=== PATIENT | female | born 1960 | race Caucasian/White ===

== ENCOUNTER → 2017-08-21 10:13 | Outpatient (CLI) | payer BC, SELFPAY ==
--- NOTE | 2017-08-21 10:18 | BD_ITS ---
STUDY: DUAL ENERGY X-RAY ABSORPTIOMETRY / DXA REASON FOR EXAM: Female, 57 years old. Surgical menopause at age 48. Moderate exercise. TECHNIQUE: Bone Mineral Density (BMD) measurements of lumbar spine hips were obtained. COMPARISON: None. FINDINGS: Lumbar Spine (L1-L4): g/cm2 (0.853) / T-score (-2.9) / Z-score (-1.7) Findings are suggestive of osteoporosis with a high fracture risk. BD/Dexa Bone Density Study IMPRESSION: The patient is considered osteoporotic as outlined below according to World Mario Organization (WHO) criteria with a high fracture risk. Reference Information: The T-score is the number of standard deviations above or below the standard which is normal for young adults at their peak bone mineral density. The World Health Organization (WHO) interprets the T-scores as follows: Above -1 Normal bone density Between -1 and -2.5 Osteopenia Equal to / or below -2.5 Osteoporosis As a practical clinical guideline, osteopenia may be graded as follows: Mild -1 through -1.5 Moderate -1.6 through -2.0 Severe -2.1 through -2.4 The Z-score is the number of standard deviations above or below age-matched controls. A Z-score of less than -1.5 would be considered abnormal. References: 1. NIH Osteoporosis and Related Bone Diseases http://www.osteo.org 2. International Society for Clinical Densitometry http://www.iscd.org 3. National Osteoporosis Foundation http://www.nof.org Electronically Signed: Vincent Gamino DO at 11:22 EDT Tel [phone], Service support ,
--- NOTE | 2017-08-21 10:18 | BI_ITS ---
MAMMOGRAPHY - BILATERAL SCREENING REASON FOR EXAM: Female, 57 years old. Routine annual screening examination. PERTINENT HISTORY: Remote bilateral excisional breast biopsies. TECHNIQUE: Digital bilateral breast ubaldo (3D mammographic acquisition) in the CC and MLO projections. 2-D mediolateral oblique (MLO) and craniocaudad (CC) views of both breasts were obtained. CAD: Full Field Digital Mammography with Computer Added Detection was performed. COMPARISON: Comparison is made with prior study dated February 19, 2016 and October 14, 2014. FINDINGS: Breast Composition: The breasts are heterogeneously dense, which may obscure small masses. There now is evidence of a 1 cm x 1 cm spiculated nodule in the upper deep midportion of the left breast. A neoplastic process should be ruled out. Correlation with ultrasound is recommended for further evaluation. No other significant abnormalities are identified. BI/SCREENING MAMM (CAD), BILAT IMPRESSION: 1 cm x 1 cm spiculated nodular density in the left breast as described. Correlation with ultrasound is recommended. ASSESSMENT CATEGORY: BIRADS Category 0: Incomplete. Need additional imaging evaluation. A letter regarding these results will be sent to the patient by the facility within 30 days. Approximately 10% of breast cancers are not detected by mammography. A normal mammogram should not delay biopsy of a clinically suspicious abnormality. [id number] Electronically Signed: Tye Munoz MD at 15:26 EDT Tel [phone], Service support ,
== END ==
PROVIDERS: Family Provider Internal Medicine; PCP Internal Medicine; Visit Provider Internal Medicine
DX: Z12.31 Encounter for screening mammogram for malignant neoplasm of breast (principal); Z78.0 Asymptomatic menopausal state
CPT/HCPCS: 77063; 77067; 77080

== ENCOUNTER → 2017-08-27 15:24 | Outpatient (CLI) | payer BC, SELFPAY ==
--- NOTE | 2017-08-27 15:35 | US_ITS ---
STUDY: ULTRASOUND BREAST - LEFT REASON FOR EXAM: Female, 57 years old. Abnormal screening mammogram. TECHNIQUE: Axial and longitudinal images of the LEFT breast were performed with a high resolution ultrasound transducer. COMPARISON: Comparison is made with prior mammogram dated August 21, 2017. FINDINGS: LEFT Breast: There is a 7 mm x 8 mm x 7 mm irregular nodular hypoechoic density at the 12:00 position of the breast 4 cm from nipple. This corresponds to the mammographic findings. A biopsy is recommended. US/Breast Limited Unilateral IMPRESSION: 7 mm x 8 mm x 7 mm suspicious nodule at the 12:00 breast at 4 cm from nipple as described. A biopsy is recommended. ASSESSMENT CATEGORY: BIRADS Category 5: Highly Suggestive of Malignancy - Appropriate Action Should Be Taken. A letter regarding these results will be sent to the patient by the facility within 30 days. Electronically Signed: Tye Munoz MD at 8:10 EDT Tel [phone], Service support ,
== END ==
LOC: OPUS 15:29 → RAO 09-23 12:13
PROVIDERS: Family Provider Internal Medicine; PCP Internal Medicine; Visit Provider Internal Medicine
DX: N63.20 Unspecified lump in the left breast, unspecified quadrant (principal)
CPT/HCPCS: 76642

== ENCOUNTER → 2017-09-03 16:40 | Outpatient (CLI) | payer BC, SELFPAY ==
--- NOTE | 2017-09-03 | IMM_PTH ---
PATIENT: WILNER URBINA LOC: [facility] U#:[id number] AGE/SX: 65/F ROOM: RE09/03/[address]: Dr. Kumar Esparza MD : 1960 BED: DIS: SPEC #: [id number] RECD: 09/05/17 10:27 STATUS: FERNANDO REBari #: [id number] KELLY: 09/03/17 00:[address]: Kumar Esparza DEPT: IMMUNOHISTOCHEMISTRY RECD BY: Dru Rutledge Tissues: Left breast, NOS Procedures: CK5-6 (add) CK8 (add) E-CAD (add) HER2 TATYANA (add) KI-67 (add) P53 (add) NC (add) ER (initial) PHYSICIAN & INSTITUTION [place] [id number] SPECIMEN INFORMATION: Tissue Source: Left breast tissue, biopsy Clinical Info: Abnormal mammogram of left breast Specimen Number: [id number] CPT code: 98142, 88327p5, 45175h6 METHODOLOGY: Deparaffinized sections of prefer/formalin-fixed tissue or PAP/DQ stained slides are incubated with monoclonal/polyclonal antibodies/oligonucleotide probes. Localization is made via biotin free immunoperoxidase method. Appropriate controls are performed and reacted as expected. Results on target cell population are indicated in the following table: RESULTS: ANTIBODY / CLONE RESULT E-Cad (ECH-6) positive CK8 (20wbzaP48) positive CK5-6 (D5 & 1684) negative Ki-67 (30-9) positive, low to moderate P53 (DO-7) positive, low MORPHOMETRIC ANALYSIS : ER (clone 6F11) >95%, strong NC (clone 16/1E2) 6%, weak Her-2Neu (clone CB11) 0 The prognostic test for HER2 is performed on formalin-fixed paraffin embedded tissue. A 3+ (positive) staining pattern is defined as intense, homogeneous, complete, circumferential membranous staining in >10% of contiguous tumor cells. A similar weak (2+) staining pattern is interpreted as equivocal. CHRIS follow-up testing is recommended for all equivocal cases. Positivity/negativity for ER/NC is reported if > or < 1% of the tumor cells are immuno- reactive, respectively. The ASCO/CAP criteria is used for scoring. Reference: Journal of Clinical Oncology, 2013; 31:5670-1943 & 2010; 16:7522-1180. Duration of fixation: 34 Hrs; Sample Adequate: Yes. These assays have not been validated on decalcified tissues. Results should be interpreted with caution given the likelihood of false negativity on decalcified specimens. These tests were developed and their performance characteristics determined by [facility]. They may not have been cleared or approved by the U.S. Food and Drug Administration. The FDA has determined that such clearance or approval is not necessary. INTERPRETATION: Left breast tissue, biopsy: Invasive ductal carcinoma, nuclear grade 2 Positive for estrogen receptors (favorable prognostic indicator). Positive for progesterone receptors (unfavorable prognostic indicator). Negative for overexpression of EMO1cco. SJ:herman 09/05/17
--- NOTE | 2017-09-03 08:45 | BRBX_PTH ---
PATIENT: WILNER URBINA LOC: [facility] U#:[id number] AGE/SX: 65/F ROOM: RE09/03/[address]: Dr. Kumar Esparza MD : 1960 BED: DIS: SPEC #: [id number] RECD: 09/03/17 16:33 STATUS: FERNANDO KYLEIGH #: [id number] KELLY: 09/03/17 08:[address]: Kumar Esparza DEPT: SURGICAL PATHOLOGY RECD BY: Kelvin Holloway ENTERED: 09/04/17 07:06 SP TYPE: BREAST BX OTHR DR: Dr. Candi Patel DO Tissues: Left breast, NOS Procedures: Surgery Specimen Level IV HEADER OPERATION: Ultrasound guided left breast biopsy PRE-OP DIAGNOSIS: Abnormal mammogram of left breast TISSUE SUBMITTED: Left breast biopsy tissue ISCHEMIC TIME: 1 minute FIXATION TIME: 34 hours MICROSCOPIC DIAGNOSIS Left breast, ultrasound-guided core biopsy: Invasive ductal carcinoma, nuclear grade 2 (0.7 cm in greatest length). Focal ductal carcinoma in situ. See comment. LEOLA:jorge 09/05/17 COMMENT 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 Immunohistochemistry ([id number]) supports the above diagnosis. ER/GA/Odv2gow studies are being performed on sections of tumor and the results from this study will be reported separately ([id number]). MICROSCOPIC DESCRIPTION Slides are reviewed. GROSS DESCRIPTION The specimen consists of multiple elongated fragments of wayne-yellow fibroadipose tissue mixed with blood clot, measuring in aggregate 2.5 x 2 x 0.1 cm. The entire specimen is submitted in one cassette. LEOLA:jorge 09/04/17 TC:0 CPT: 02311
== END ==
PROVIDERS: Visit Provider Surgery
DX: R92.8 Other abnormal and inconclusive findings on diagnostic imaging of breast (principal)
CPT/HCPCS: 88305; 88341; 88342

== ENCOUNTER 2017-09-18 08:28 | Day surgery (SDC) | payer BC, SELFPAY ==
--- NOTE | 2017-09-18 | AXNB_PTH ---
PATIENT: WILNER URBINA LOC: [facility] [place] U#:[id number] AGE/SX: 57/F ROOM: RE09/18/[address]: Dr. Kumar Esparza MD : 1960 BED: DIS: 09/18/2017 SPEC #: [id number] RECD: 09/18/17 11:55 STATUS: FERNANDO RE #: [id number] KELLY: 09/18/17 00:[address]: Kumar Esparza DEPT: SURGICAL PATHOLOGY RECD BY: Casie Lang ENTERED: 09/18/17 12:48 SP TYPE: AX NODE BX OTHR DR: Dr. Candi Patel DO Tissues: A - Axillary lymph node, NOS B - Left breast, NOS Procedures: Frozen Section (charge) Surgery Specimen Level IV Surgery Specimen Level Comments: @ Specimen number changed from [id number] to [id number] @ on 09/18/17 at 1314 by RGOOD. HEADER OPERATION: Ultrasound-guided needle localization in OR; lumpectomy with sentinel lymph node biopsy and Neoprobe radiotracer, left breast PRE-OP DIAGNOSIS: Malignant neoplasm of upper inner quadrant left breast, ER positive TISSUE SUBMITTED: A ? Left axillary sentinel lymph node tissue to lab FS, B ? Left breast lumpectomy tissue to mammography, short stitch ? superior, long stitch - lateral FROZEN SECTION DIAGNOSIS A. Left axillary sentinel lymph node tissue, biopsy: One lymph node, negative for metastatic carcinoma. SJ:judy 09/18/17 MICROSCOPIC DIAGNOSIS A. Left axillary sentinel lymph node tissue, biopsy: One out of one lymph node, negative for carcinoma. B. Left breast, lumpectomy: Invasive ductal carcinoma. See cancer checklist below. AM:judy 09/24/17 COMMENT INVASIVE BREAST CANCER SUMMARY: Specimen: Partial breast Procedure: Excision with wire guidance Lymph node sampling: See specimen A Specimen integrity: Single intact specimen Specimen size: 7 x 5.5 x 2 cm Specimen laterality: Left breast Tumor size: 1 x 1 x 1 cm Tumor focality: Single focus of invasive carcinoma Macroscopic and Microscopic extent of tumor: Skin: Free of carcinoma Nipple: Not present Skeletal muscle: Not present Histologic type of invasive carcinoma: invasive ductal carcinoma Histologic Grade (Satya grade): Glandular/tubular differentiation score: 3 Nuclear pleomorphism score: 3 Mitotic count score: 2 Overall grade: Grade 3 (total score of 8) Margins: The margins are NOT involved by invasive carcinoma. Distance from closest margin is 5 mm from closest (posterior) margin Lymph-Vascular invasion: Not identified Dermal lymph-vascular invasion: Not identified Ductal carcinoma in situ (DCIS) - present Estimated size (extent) of DCIS: 1 x 1 x 1 mm Number of blocks with DCIS: 2 out of 10 Architectural patterns: Cribriform. Nuclear grade: 3 Necrosis: Present, focal Lobular carcinoma in situ (LCIS): Not present Lymph nodes: Number of sentinel lymph nodes examined - 1 Total number of lymph nodes examined (sentinel and nonsentinel) - 1 No evidence of macrometastases, micrometastases or isolated tumor cells. Immunohistochemistry ([id number]) performed on the lymph node. Microcalcifications - present in non-neoplastic tissue Treatment effect ? unknown Additional pathologic findings: Fibrocystic change Ancillary studies: Previously performed on same tumor ([id number] / [id number]). ER: >95%, strong AR: 6%, weak Her2 ajith: 0 (IHC) PATHOLOGIC STAGE: pT1b N0(sn) Mx The above summary is in compliance with [employer] (CAP) Cancer Protocols Checklist and [place] Joint Committee on Cancer (AJCC), Staging Manual, 8th Ed. Case has been reviewed in consultation with Dr. Krishnamurthy who concurs with the above diagnosis. IDC:SJ MICROSCOPIC DESCRIPTION Slides are reviewed. GROSS DESCRIPTION A - Received fresh for frozen section diagnosis labeled with the patient's name is a specimen designated left axillary sentinel lymph node tissue. The specimen consists of a piece of yellow adipose tissue containing a nodule consistent with lymph node measuring 2 x 1.5 x 0.5 cm. The specimen is bisected and submitted entirely for frozen section diagnosis in one cassette. / LEOLA:judy 09/18/17 B - Received fresh for intraoperative consultation labeled with the patient's name is a specimen designated left breast lumpectomy tissue. The specimen consists of a piece of fibroadipose tissue measuring 7 x 5.5 x 2 cm. A piece of skin is also noted anteriorly measuring 3 x 0.5 cm. The specimen is oriented as follows: short stitch ? superior, long stitch ? lateral. The specimen is inked as follows: anterior ? yellow, posterior ? black, superior ? blue, inferior ? green, medial ? red and lateral ? orange. Serial sections reveal a tumor mass measuring 1 x 1 x 1 cm and it is 0.5 cm away from the closest posterior margin. This information is conveyed to the surgeon intraoperatively. Sections of the rest of the specimen reveals wayne-yellow adipose cut surfaces mixed with wayne-white fibrous areas. Focal dense fibrous area is noted at the lateral margin measuring 1 cm in greatest dimension. Drug And Alcohol Counsellor sections are submitted in 10 cassettes as follows: 1 ? perpendicular medial and lateral margins, 2 ? perpendicular anterior margin, inferior margin and skin, 3-5 ? entire tumor with closest superior and posterior margin, 6-10 - career services representative sections from the other areas. About 90% of the specimen is submitted. Sections will be submitted after additional fixation. / LEOLA:judy 09/19/17 TC:0 CPT: 05393, 61113, 32057, 14924 ADDENDUM ADDENDUM ADDENDUM ADDENDUM ADDENDUM ADDENDUM ADDENDUM ADDENDUM 11/03/2017 09:26 ADDENDUM 11/03/2017 09:26 ADDENDUM 11/03/2017 09:26 ADDENDUM 11/03/2017 09:26 ADDENDUM 11/03/2017 09:26 An order for Oncotype testing was received from Dr. Lorenzo. This necessitated case review, block and slide selection by pathologist at [facility]. Breast Cancer Recurrence Score = 28 Results of the complete Oncotype testing ([facility] report) are viewable in EMR under: Reports - Pathology - Lab Pathology Report, Scanned.
--- NOTE | 2017-09-18 | IMM_PTH ---
PATIENT: WILNER URBINA LOC: [facility] [place] U#:[id number] AGE/SX: 57/F ROOM: RE09/18/[address]: Dr. Kumar Esparza MD : 1960 BED: DIS: 09/18/2017 SPEC #: [id number] RECD: 09/23/17 14:17 STATUS: FERNANDO REQ #: [id number] KELLY: 09/18/17 00:[address]: Kumar Esparza DEPT: IMMUNOHISTOCHEMISTRY RECD BY: Casie Lang ENTERED: 09/23/17 14:18 SP TYPE: IMMUNO OTHR DR: Dr. Candi Patel, DO Tissues: A - Axillary lymph node, NOS Procedures: Pankeratin (add) CK7 (initial) PHYSICIAN & INSTITUTION [place] [address] SPECIMEN INFORMATION: Tissue Source: A ? Left axillary sentinel lymph node tissue Clinical Info: Malignant neoplasm of upper inner quadrant, left breast, ER positive Specimen Number: [id number] CPT code: 26985, 49531 METHODOLOGY: Deparaffinized sections of prefer/formalin-fixed tissue or PAP/DQ stained slides are incubated with monoclonal/polyclonal antibodies/oligonucleotide probes. Localization is made via biotin free immunoperoxidase method. Appropriate controls are performed and reacted as expected. Results on target cell population are indicated in the following table: RESULTS: ANTIBODY / CLONE RESULT Block A CK7 (OV-TL12/30) negative AE1-3 (AE1/AE3/PCK26) negative These tests were developed and their performance characteristics determined by [facility]. They may not have been cleared or approved by the U.S. Food and Drug Administration. The FDA has determined that such clearance or approval is not necessary. INTERPRETATION: A. Left axillary sentinel lymph node tissue, biopsy: One out of one lymph node negative for carcinoma. AM:judy 09/24/17
[2017-09-18 08:44] VITALS: BP 136/84; PULSE 68; RESP 16; TEMP 36.7; O2SAT 100; BMI 25.8
--- NOTE | 2017-09-18 09:00 | NM_ITS ---
PROCEDURE: NUCLEAR MEDICINE Injection [place] Node - LEFT breast(s). REASON FOR EXAM: Female, 57 years old. Left breast concert. TECHNIQUE: [place] node localization using radionuclide methods of the LEFT breast(s) was performed following subcutaneous administration administration of 1.1 mCi of of sulfur colloid Tc-99m. FINDINGS: 1.1 mCi of technetium labeled sulfur colloid was injected in 4 equal aliquots at the biopsy site. NM/Lymph Node Injection Only IMPRESSION: Successful injection of 1.1 mCi of technetium labeled sulfur colloid at the biopsy site for sentinel node imaging. Electronically Signed: Tye Munoz MD at 10:16 EDT Tel [phone], Service support ,
[2017-09-18] MEDS: Cefazolin 2 GM in 0.9% Normal Saline 100 ML IV (11:02)
--- NOTE | 2017-09-18 12:14 | BI_ITS ---
SURGICAL BREAST SPECIMEN RADIOGRAPH CLINICAL: Document presence of mass in biopsy specimen. FINDINGS: Specimen shows presence of mass. Electronically Signed: Tye Munoz MD at 12:35 EDT Tel [phone], Service support , BI/Breast Biopsy Specimen
[2017-09-18] MEDS: Bupivacaine Mpf 0.5% 30 ML VIAL (12:20)
--- NOTE | 2017-09-18 12:38 | PCM.OPRPT ---
Problem List (1) Breast cancer of upper-inner quadrant of left female breast Status: Acute Qualifiers: Estrogen receptor status: positive Qualified Code(s): C50.212 - Malignant neoplasm of upper-inner quadrant of left female breast; Z17.0 - Estrogen receptor positive status [ER+] Report of Operation Date of Procedure: 09/18/17 Pre-Operative Diagnosis: Left breast cancer estrogen receptor positive Post-Operative Diagnosis: Same Surgery/Procedure Performed:: 1. Ultrasound guidance wire localization. 2. Injection blue dye. 3. Left partial mastectomy. 4. Left sentinel lymph node biopsy with neoprobe guidance Special Medications: Isosulfan blue dye Specimen's removed: 1. Left axillary sentinel lymph node. 2. Left partial mastectomy Description of Procedure: The patient was sent for nuclear tracer injection before surgery. She was brought to the operating room and general anesthesia was induced. Next an ultrasound was used to locate the breast mass and a Kopan's wire was placed into the mass. Next 5 mL of isosulfan blue were injected in the subareolar space in 4 quadrants. The breast was then massaged for 5 full minutes. Next the left breast was prepped and draped in usual sterile fashion. The left axillary hairline was located and a curvilinear incision was made in the skin and deepened to the axillary fascia. The axillary fascia was opened and using the neoprobe to guide dissection was completed until blue node was identified. This was dissected free using clips and hemostats until the lymph node was removed. A 10 second count was performed outside of the body and this was 234. This was sent for pathology. The neoprobe was placed back in the axilla and nothing appeared to have a count higher than 23. The axilla was further inspected there were no further blue lymph nodes and the axilla was palpated and there were no palpable lymph nodes. The axilla was packed with wet Ray-Anastacia and attention was paid to the left breast mass. The patient's prior lumpectomy incision was incised around and excised with the specimen. Once the incision was made the skin was elevated and flaps were created. Dissection was carried down to the pectoral fascia in all directions around the wire and the dissection was carried all the way the pectoral fascia including the fascia. The specimen along with the wire was removed and sent for mammogram and then pathology. The mammogram of the specimen revealed that the entire wire and clip with the mass were included. Pathology called the room and notified us that our sentinel lymph node was negative and that the mass had good margins of at least half a centimeter. Next the axilla was irrigated and suctioned dry and check for hemostasis and hemostasis was good. The axillary fascia was reapproximated with 3-0 Vicryl suture and the skin was approximated with interrupted 3-0 Vicryl sutures. The incision was then anesthetized with Marcaine and closed with a running 4-0 Monocryl suture. Dermabond was then applied. The breast cavity was irrigated and suctioned dry check for hemostasis and hemostasis was obtained with electrocautery. Some of the deep breast tissue was reapproximated with interrupted 3-0 Vicryl sutures. The incision was then anesthetized with Marcaine and closed with interrupted 3-0 Vicryl sutures, running 4-0 Monocryl, and Dermabond. Padded dressings and a surgical bra were applied and the patient was taken to PACU in stable condition. The patient tolerated the procedure well. - Admit VTE Documentation VTE Mechan Device Prophylaxis: SCD's
--- NOTE | 2017-09-18 12:49 | DCINST_ITS ---
Discharge Diet: No Restrictions Discharge Activity: May Not Drive - for 2-3 days or while taking narcotic pain meds. May shower in (days): 1 Lifting Restrictions: 10 pounds for 1 week. Call your doctor if your incision/area has: Continuous Slow Oozing, Sudden Increased Bleeding, Increased Pain/ Swelling, Increased Redness, Foul Smelling Discharge, Swelling at the incision site Call your doctor if you observe: Fever of 101 or Higher Suture Line Care: Avoid Pulling/Pushing, Avoid Pinching/Bending Allergies/Adverse Reactions: Allergies orange juice [[place] Juice] Adverse Reaction (Verified 09/16/17 13:13) Nausea/Vom/Diarrhea Medications to take at Discharge Amitriptyline HCl [Elavil] 12.5 mg PO QHS PRN 01/18/13 albuterol sulfate HFA 90 mcg/actuation aerosol inhaler 2 puff INHALATION Q6H PRN 09/03/17 lorazepam 0.5 mg tablet 0.5 mg PO Q8H PRN tab 09/03/17 nebivolol 5 mg tablet 5 mg PO QDAY 09/03/17 Oxycodone HCl/Acetaminophen [Percocet 5/325] 1 - 2 tab PO Q4H PRN PRN 7 Days # 40 tab 09/18/17 The following prescriptions were given: Oxycodone HCl/Acetaminophen [Percocet 5/325] 1 - 2 tab PO Q4H PRN PRN 7 Days # 40 tab PRN Reason: Pain Primary Care Physician: Candi Patel DO [Primary Care Provider] - Please Follow Up With: Kumar Esparza MD When: Please call to schedule 2 week follow up appointment. [phone]
[2017-09-18 12:50] VITALS: BP 115/70; BP 136/84; PULSE 81; RESP 16; TEMP 36.4; O2SAT 97
[2017-09-18 13:00] VITALS: BP 136/84; BP 141/72; PULSE 72; RESP 16; O2SAT 98
[2017-09-18 13:15] VITALS: BP 136/84; BP 144/85; PULSE 64; RESP 16; O2SAT 100
[2017-09-18 13:32] VITALS: BP 136/84; BP 137/79; PULSE 61; RESP 16; TEMP 36.4; O2SAT 99
[2017-09-18 14:50] VITALS: BP 136/84
== END 2017-09-18 14:50 | disposition home or self-care (01) ==
LOC: SDC 08:30 → AC 08:30
PROVIDERS: Family Provider Internal Medicine; PCP Internal Medicine; Visit Provider Surgery
PROC: (CPT 19301; principal; 2017-09-18 10:45)
DX: C50.212 Malignant neoplasm of upper-inner quadrant of left female breast (principal); Z17.0 Estrogen receptor positive status [ER+]; I34.1 Nonrheumatic mitral (valve) prolapse; I10 Essential (primary) hypertension; J45.909 Unspecified asthma, uncomplicated; F41.9 Anxiety disorder, unspecified; M19.90 Unspecified osteoarthritis, unspecified site; Z79.899 Other long term (current) drug therapy
CPT/HCPCS: 19285; 19301; 38500; 38792; 76098; 88305; 88309; 88331; 88341; 88342; A9541; J7120; J2405; Q9968

== ENCOUNTER → 2018-02-02 07:53 | Outpatient (CLI) | payer BC, SELFPAY ==
[2017-10-16 10:28] VITALS: BMI 26.2
--- NOTE | 2018-02-02 08:00 | NM_ITS ---
CLINICAL: 58-year-old female with reported history of carcinoma of the breast. WHOLE BODY 99m Tc MDP RADIONUCLIDE BONE SCINTIGRAPHY COMPARISON: None available FINDINGS: Following the intravenous administration of 25.0 mCi of 99m Tc MDP, whole body bone images reveal: 1. Increased radiopharmaceutical concentration is identified in the upper-mid cervical spine posteriorly on the left and right, fourth-fifth lumbar vertebra posteriorly on the right, bilateral wrist articulations, right-left ankles, the midfoot bilaterally, acromioclavicular compartment of the right shoulder. 2. The remaining skeletal structures are scintigraphically unremarkable with normal-appearing renal images and urinary bladder activity identified. Enhanced uptake is defined in the presumably asymptomatic bilateral knee arthroplasties most consistent with postsurgical change. An increase in tracer concentration is demonstrated in the bilateral mandible and maxilla most consistent with periostitis and/or periodontal disease. NM/Bone Scan Whole Body IMPRESSION: 1. The increase in radiopharmaceutical concentration identified in the cervical and lumbar spine, bilateral wrist and ankle articulations, right-left midfoot, the right shoulder is most consistent with degenerative arthritis. 2. There is no definitive typical scintigraphic evidence of diffuse axial skeletal metastatic disease on the current examination. Electronically Signed: Kelvin Oleary DO at 10:36 EST Tel , Service support ,
== END ==
PROVIDERS: Family Provider Internal Medicine; PCP Internal Medicine; Referring Provider Internal Medicine Medical Oncology; Visit Provider Internal Medicine Medical Oncology
DX: C50.212 Malignant neoplasm of upper-inner quadrant of left female breast (principal); R74.8 Abnormal levels of other serum enzymes
CPT/HCPCS: 78306

== ENCOUNTER → 2018-02-05 13:30 | Outpatient (CLI) | payer BC, SELFPAY ==
[2017-10-16 10:28] VITALS: BMI 26.2
[2018-02-05 14:33] LABS: Absolute Lymphocyte Count 1.25 X10^3/ul (0.83-4.51); Absolute Neutrophil Count 3.8 X10^3/uL (2.0-7.7); Basophil# 0.03 X10^3/uL; Basophil% 0.6 % (0-1); Eosinophil# 0.01 X10^3/uL; Eosinophils% 0.2 % (0-5); Hematocrit 39.5 % (37-47); Hemoglobin 13.1 g/dl (12.0-15.0); Lymphocyte # 1.25 X10^3/ul (4.0); Mean Corp Hgb Conc 33.2 g/gl (32-36); Mean Corpuscular Hgb 29.7 pg (27.0-32.0); Mean Corpuscular Volume 89.6 fL (81-99); Monocyte# 0.35 X10^3/uL; Monocyte% 6.4 % (0-10); Neutrophil % 69.8 % (47-70); Platelet Count 186 K/mm3 (150-450); RBC Distribution Width CV 13.8 % (11.6-14.6); RBC Distribution Width SD 45.4 fl (35.1-43.9); Red Blood Count 4.41 M/mm3 (4.2-5.4); White Blood Count 5.4 K/mm3 (4.4-11.0)
[2018-02-05 14:37] LABS: POSITIVE COUNT NO; POSITIVE DIFFERENTIAL NO; POSITIVE MORPHOLOGY NO
[2018-02-05 14:50] LABS: ALB/GLOB Ratio 1.2 RATIO (0.9-2.4); AST(SGOT) 21 U/L (15-37); Alanine Aminotransfer ALT/SGPT 28 U/L (13-56); Albumin, Serum 3.6 g/dL (3.2-5.0); Alkaline Phosphatase 120 U/L (45-117); BUN 17 mg/dL (7-18); BUN/Creat Ratio 29.7 RATIO (10-20); Calcium,Total 8.3 mg/dL (8.5-10.1); Chloride 109 mmol/L (98-107); Creatinine, Serum 0.57 mg/dL (0.55-1.02); EST Glomerular Filtration Rate 114 mL/min (>60); Est Glom Filt Rate - Afr Amer 138 mL/min (>60); Globulin 3.1 g/dL (2.2-4.2); Glucose 87 mg/dL (74-106); Protein, Total 6.7 g/dL (6.4-8.2); Sodium Level 141 mmol/L (136-145)
[2018-02-05 14:51] LABS: Anion Gap 5 (5-15)
--- OUTSIDE RECORDS SUMMARY | 2018-04-02 18:07 | XMS RPT_ITS ---
:1960 Author Organization OHIP Support Name Relationship Address Phone JOSE DAVID URBINA Unavailable [address] + [place] [address] ENTERPRISES Unavailable [address] + [place] [address] JOSE DAVID URBINA Unavailable [address] + [place] [address] ENTERPRIS[employer] Unavailable [address] + [place] [address] JOSE DAVID URBINA Unavailable [address] + [place] [address] ENTERPRISES Unavailable [address] + [place] [address] JOSE DAVID URBINA Unavailable [address] + [place] [address] ENTERPRISES Unavailable [address] + [place] [address] JOSE DAVID URBINA Unavailable [address] + [place] [address] + [place] [address] JOSE DAVID URBINA Unavailable [address] + [place] [address] + [place] [address] JOSE DAVID URBINA Unavailable [address] + [place] [address] + [place] [address] JOSE DAVID URBINA Unavailable [address] + [place] [address] Un[address] + [place] [address] URBINA, JOSE DAVID Unavailable [address] + [place] [address] + [place] [address] URBINA, JOSE DAVID Unavailable [address] + [place] [id number] + [place] [address] URBINA, JOSE DAVID Unavailable [address] + [place] [address] + [place] [address] URBINA, JOSE DAVID Unavailable [address] + [place] [address] Un[address] + [place] [address] URBINA, [place] Unavailable [address] + [place] [address] Un[address] + [place] [address] URBINA, JOSE DAVID Unavailable [address] + [place] [address] Un[address] + [place] [address] URBINA, JOSE DAVID Unavailable [address] + [place] [address] Un[address] + [place] [address] [facility] [address] + [place] [address] Un[address] + [place] [address] URBINA, JOSE DAVID Unavailable [address] + [place] [address] Un[address] + [place] [address] URBINA, JOSE DAVID Unavailable [address] + [place] [address] Un[address] + [place] [address] URBINA, JOSE DAVID Unavailable [address] + [place] [address] + [place] [address] URBINA, JOSE DAVID Unavailable [address] + [place] [address] Un[address] + [place] [address] URBINA, JOSE DAVID Unavailable [address] + [place] [address] Un[address] + [place] [address] URBINA JOSE DAVID Unavailable [address] + [place] [address] Un[address] + [place] [address] URBINA, JOSE DAVID Unavailable [address] + [place] [address] Un[address] + [place] [address] URBINA JOSE DAVID Unavailable [address] + [place] [address] Un[address] + [place] [address] URBINA, JOSE DAVID Unavailable [address] + [place] [address] Un[address] + [place] [address] URBINA, JOSE DAVID Unavailable [address] + [place] [address] Un[address] + [place] [address] CIARA BRANDYN Unavailable [address] + [place] [address] + [place] [address] Care Team Providers Name Role Phone TANIA GIBSON Attending Unavailable TANIA GIBSON Referring Unavailable TANIA GIBSON Attending Unavailable TANIA GIBSON Referring Unavailable Amanda, Candi Attending Unavailable Amanda, Candi Primary Care Unavailable Amanda, Candi Attending Unavailable Amanda, Candi Primary Care Unavailable Calabretta, Kumar Referring Unavailable Calabretta, Kumar Attending Unavailable Amanda, Candi Referring Unavailable Calabretta, Kumar Attending Unavailable Amanda, Candi Primary Care Unavailable Calabretta, Kumar Referring Unavailable Calabretta, Kumar Attending Unavailable Amanda, Candi Referring Unavailable Calabretta, Kumar Attending Unavailable Calabretta, Kumar Referring Unavailable Amanda, Candi Primary Care Unavailable Calabretta, Kumar Attending Unavailable Calabretta, Kumar Referring Unavailable Amanda, Candi Primary Care Unavailable Calabretta, Kumar Consulting Unavailable Calabretta, Kumar Attending Unavailable Amanda, Candi Referring Unavailable Amanda, Candi Primary Care Unavailable Calabretta, Kumar Referring Unavailable Amanda, Candi Primary Care Unavailable Roman Sargent Consulting Unavailable Roman Sargent Attending Unavailable Roman Sargent Attending Unavailable Calabretta, Kumar Referring Unavailable Amanda, Candi Primary Care Unavailable Steve Sargente Consulting Unavailable PraErlin holman Consulting Unavailable Roman Sargent Attending Unavailable Calabretta, Kumar Referring Unavailable PraErlin holman Attending Unavailable Calabretta, Kumar Referring Unavailable Amanda, Candi Primary Care Unavailable Arie, Roman Consulting Unavailable Prah, Erlin Consulting Unavailable Steve Sargente Attending Unavailable Arie, Roman Referring Unavailable ArieSteve louise Attending Unavailable Calabretta, Kumar Referring Unavailable Amanda, Candi Primary Care Unavailable Arie, Roman Consulting Unavailable PrahErlin Consulting Unavailable Roman Sargent Attending Unavailable Calabretta, Kumar Referring Unavailable Amanda, Candi Primary Care Unavailable Steve Sargente Consulting Unavailable Prariver, Erlin Consulting Unavailable Roman Sargent Attending Unavailable Calabretta, Kumar Referring Unavailable Amanda, Candi Primary Care Unavailable Arie, Roman Consulting Unavailable PraErlin holman Consulting Unavailable Arie, Roman Attending Unavailable Arie, Roman Referring Unavailable Arie, Roman Attending Unavailable Arie, Roman Referring Unavailable Arie, Roman Attending Unavailable Calabretta, Kumar Referring Unavailable Amanda, Candi Primary Care Unavailable Arie, Roman Consulting Unavailable Arie, Roman Attending Unavailable Calabretta, Kumar Referring Unavailable Amanda, Candi Primary Care Unavailable Arie, Roman Consulting Unavailable Arie, Roman Attending Unavailable Arie, Roman Referring Unavailable Prah, Erlin Attending Unavailable Calabretta, Kumar Referring Unavailable Amanda, Candi Primary Care Unavailable Arie, Roman Consulting Unavailable Arie, Roman Attending Unavailable Calabretta, Kumar Referring Unavailable Amanda, Candi Primary Care Unavailable Arie, Roman Consulting Unavailable Prah, Erlin Attending Unavailable Prah, Erlin Referring Unavailable Amanda, Candi Primary Care Unavailable Prariver, Erlin Attending Unavailable Prah, Erlin Referring Unavailable Amanda, Candi Primary Care Unavailable Prariver, Erlin Attending Unavailable Prah, Erlin Referring Unavailable Amanda, Candi Primary Care Unavailable Prariver, Erlin Attending Unavailable Calabretta, Kumar Referring Unavailable Amanda, Candi Primary Care Unavailable Arie, Roman Consulting Unavailable PROBLEMS PROBLEMS DATE TYPE CONDITION / CODE ATTENDING STATUS SOURCE 02/09/2018 Unknown C50.212 - Erlin Lorenzo Active [facility] Malignant neoplasm [facility] quadrant of left Repository female breast / C50.212(ICD-10) 12/30/2017 Active Pain in left knee NA Active [facility] / M25.562(ICD-10) Other [place] Repository 12/30/2017 Active Pain in right knee NA Active [facility] / M25.561(ICD-10) Other [place] Repository 12/18/2017 Unknown C50.912 - Roman Sargent Active [facility] site of left Repository female breast / C50.912(ICD-10) 09/11/2017 Unknown C50.919 - Calmayra, Active [facility] ne[facility] Kumar [facility] site of Repository unspecified female breast / C50.919(ICD-10) 10/06/2017 Unknown R92.8 - Other Amanda, Active [facility] abnormal and Candi Community inconclusive Hospital findings on Repository diagnostic imaging of breast / R92.8(ICD-10) 03/20/2017 Active Unknown / GIBSONTANIA Lagunas Active [facility] UNK(Unknown) A Main [place] Repository PROCEDURES PROCEDURES No Procedure Records FoundRESULTS RESULTS ONCOLOGY VISIT REPORT Observed: 02/09/2018 Status: F Source: [place] 2:47 PM [facility] [place] [facility] [address] [address] OFFICE VISIT Date of Service: 02/09/18 1428 MR#: [id number] Acct: [id number] Name: CELINA URBINA Rep #: [id number] : 1960 From: Erlin Lorenzo MD Age/Sex: 58/F Location: [facility] Status: Signed Subjective - Date of Service Date of Service:: 02/09/18 - Chief Complaint F/U for further management of Left breast cancer. - History of Present Illness 58y.o.woman presented with abnormal mammogram on 08/21/2017 which a 1 x 1 cm spiculated nodule in the left breast. US of left breast on 08/27/2017 showed 8 mm irregular nodular hypoechoic density at the 12 o'clock position in the left breast about 4 cm from the nipple which corresponds to the area of mammographic abnormality, BI-RADS Category 5. Ultrasound-guided core biopsy was done on 09/03/2017, pathology showed invasive ductal carcinoma, grade 2, (ER >95%, ND 6%, Her2 0 IHC) with focal DCIS. She went on to have left breast lumpectomy and sentinel lymph node biopsy on 09/18/2017. Pathology demonstrated a 10mm grade 3 invasive ductal carcinoma, margins negative (closest margin is 5 mm posterior), grade 3, focal DCIS is present, one sentinel lymph node was recovered and negative for disease involvement, pT1b N0 (sn) Mx. Bone density on 08/21/2017 showed osteoporosis. Oncotype DX was 28, intermediate risk, Pt elected hormonal therapy. She received adjuvant Radiation therapy from 11/19/2017 to 12/17/2017. Had CT c/a/p and bone scan because of increased Alk Phosphatase. Comes in for follow up. - Past Medical/Social History Past Medical History Cancer: Breast cancer Social History Smoking Status Never smoker Review of Systems Constitutional:: Denies: Fever, Sweats, Weight loss, Appetite change, Chills Cardiovascular:: Denies: Chest pain, Palpitations, Dyspnea on exertion, Orthopnea, PND, Shortness of breath Respiratory: Denies: Cough, Hemoptysis, Shortness of Breath, Wheezing Gastrointestinal:: Denies: Abdominal pain, Nausea, Vomiting, Diarrhea, Constipation, Hematochezia Genitourinary: Denies: Dysuria, Hematuria, 15, Flank pain Musculoskeletal:: Denies: Back pain, Myalgia, Arthralgia Skin: Denies: Rash, Skin Changes, Wounds Neurological:: Denies: Headache, Dizziness, Visual changes, Tinnitus, Hearing loss Psychiatric: Denies: Anxiety, Depression, Homicidal Ideations, Suicidal Ideations Vital Signs Height 5 ft 4 in Weight: 70.76 kg Weight in Pounds 156.0 lbs BMI 26.2 Pulse Ox 98 - Physical Exam General: Alert, Oriented x3, No apparent distress Laboratory Data: Laboratory Tests WBC 4.1 L (4.4-11.0) K/mm3 RBC 4.41 (4.2-5.4) M/mm3 Hgb 12.9 (12.0-15.0) g/dl Diagnostic Data: 02/06/[address]/Chest WITH Contrast IMPRESSION: There is no evidence of metastatic disease in the chest. There are no lung nodules. There is no pleural effusion or significant lymphadenopathy. There are mild chronic changes in the lung apices. There is minimal atelectasis and/or scarring in both lung bases. Electronically Signed: Faye Ramos MD at 20:[address]/Abdomen/Pelvis WITH Contrast IMPRESSION: There is no evidence of metastatic disease in the abdomen or pelvis. No bone lesions are seen. There is diverticulosis of the colon. Mild wall thickening in the sigmoid is consistent with chronic diverticular disease. There are no acute bowel abnormalities. There is no ascites, free air or significant lymphadenopathy. There is moderate compression of L1. There is no abnormal tracer activity in this vertebral body on the recent nuclear medicine bone scan indicating an old finding. Electronically Signed: Faye Ramos MD at 0:20 EST 02/02/2018 Bone scan reviewed. NM/Bone Scan Whole Body IMPRESSION: 1. The increase in radiopharmaceutical concentration identified in the cervical and lumbar spine, bilateral wrist and ankle articulations, right-left midfoot, the right shoulder is most consistent with degenerative arthritis. 2. There is no definitive typical scintigraphic evidence of diffuse axial skeletal metastatic disease on the current examination. Electronically Signed: Kelvin Oleary DO at 10:36 EST Assessment and Plan Left breast cancer stage IA(pT1 pN0 M0) ER positive, ND positive, Her2 negative. S/P lumpectomy and sentinel node L Axillary dissection. Node negative, margins negative. Oncotype DX score is 28- intermediate score. Finished Adjuvant Radiation therapy on 12/17/2017. On Adjuvant Tamoxifen, had itchy eyes which resolved with antihistamine. Osteoporosis. S/P bilateral oophorectomy and hysterectomy. Increased Alkaline Phosphatase resolved. No evidence of disease clinically. 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 Plan is to Tamoxifen 20mg daily. RTC 4 months with CBC/CMP. Medications: Prescriptions This Visit Medication Instructions Recorded Ibuprofen/Famotidine [Duexis 800 mg PO DAILY PRN 10/16/17 800-26.6 mg Tablet] Tamoxifen Citrate [Nolvadex] 20 mg PO DAILY #90 tablet 12/22/17 Primary Care Provider: Candi Patel Referring Provider: Kumar Esparza, - Problem List (1) Osteoporosis Status: Chronic (2) Breast cancer of upper-inner quadrant of left female breast Status: Chronic Qualifiers: Estrogen receptor status: positive Qualified Code(s): C50.212 - Malignant neoplasm of upper-inner quadrant of left female breast; Z17.0 - Estrogen receptor positive status [ER+] Code Visit Office Visits / Consults: [id number] OV L3 Est 02/09/18 1447 <Electronically signed by Erlin Lorenzo MD> Date Erlin Lorenzo MD Cosigner Signature: Date (if applicable) CC: Candi Patel DO CBC W/DIFF, AUTOMATED Collected: 02/09/2018 Status: F [facility] [place] [facility] Order Comment: Reason for Laboratory Test . TYPE CODE TESTS RESULT OUT OF RANGE REFERENCE UNITS LAB L100.1000 4.4-11.0 K/mm3 Low WBC 4.1 LAB L100.1200 4.2-5.4 M/mm3 Normal RBC 4.41 LAB L100.1300 12.0-15.0 g/dl Normal HGB 12.9 LAB L100.1400 37-47 % Normal HCT 39.4 LAB L100.1500 81-99 fL Normal MCV 89.3 LAB L100.1600 27.0-32.0 pg Normal MCH 29.3 LAB L100.1700 32-36 g/gl Normal MCHC 32.7 LAB L100.1810 11.6-14.6 % Normal RDW CV 13.7 LAB L100.1820 35.1-43.9 fl High RDW SD 45.5 LAB L100.1900 150-450 K/mm3 Normal PLT 174 LAB L100.2000 6.2-12.0 fl Normal MPV 10.8 LAB L100.2100 47-70 % Normal NEUT% 65.0 LAB L100.2200 19-41 % Normal LY% 23.6 LAB L100.2300 0-10 % High MONO% 10.2 LAB L100.2400 0-5 % Normal EO% 0.5 LAB L100.2500 0-1 % Normal BASO% 0.5 LAB L100.2550 0.0-0.9 % Normal IM GRAN % 0.200 Result Comment: IG% - Immature Granulocytes (promyelocytes, myelocytes and metamyelocytes) > 1% indicates that a LEFT SHIFT is Present. LAB L100.2620 2.0-7.7 X10 3/uL Normal Absolute Neut 2.7 LAB L100.2720 0.83-4.51 X10 3/ul Normal Absolute Lymph 0.97 Performed By: #### L100.0100 #### [facility] [address] [place], [place], [id number] COMPREHENSIVE METABOLIC Collected: 02/09/2018 Status: F Source: [place] [facility] 1:35 PM [facility] [place] [facility] Order Comment: Reason for Laboratory Test . TYPE CODE TESTS RESULT OUT OF RANGE REFERENCE UNITS LAB L501.0100 74-106 mg/dL Normal GLU 97 Result Comment: Please note revised GLUCOSE reference range effective 2017. LAB L501.1000 7-18 mg/dL High BUN 20 LAB L501.1100 0.55-1.02 mg/dL Normal CREAT,SERUM 0.60 Result Comment: The validity of the calculated GFR AND GFRAA in patients over 70 years has not been determined. Clinical correlation is essential. LAB L501.1110 >60 mL/min Normal EST GFR 109 Result Comment: Non- GFR Calc LAB L501.1115 >60 mL/min Normal EST GFR - AA 132 Result Comment: GFR Calc LAB L501.1255 ml/min Normal Estimated CRCL 86.10 LAB L501.1300 10-20 RATIO High BUN/CRE 33.6 LAB L501.1500 6.4-8. g/dL Normal 2 T PROT 6.8 LAB L501.1800 3.2-5. g/dL Normal 0 ALB 3.6 LAB L501.1950 2.2-4. g/dL Normal 2 GLOB 3.2 LAB L501.2000 0.9-2. RATIO Normal 4 A/G 1.1 LAB L501.2200 8.5-10 mg/dL Low .1 CA 8.2 LAB L501.4100 15-37 U/L Low AST 14 LAB L501.4305 45-117 U/L Normal ALK P 117 LAB L501.4405 13-56 U/L Normal ALT 22 LAB L501.4600 0.20-1 mg/dL Normal .00 T BILI 0.40 LAB L501.5300 136-14 mmol/L Normal 5 NA 142 LAB L501.5600 3.5-5. mmol/L Normal 1 K 3.6 LAB L501.5900 98-107 mmol/L High CL 110 LAB L501.6100 21.0-3 mmol/L Normal 2.0 CO2 27.0 LAB L501.6200 5-15 Normal GAP 5 Performed By: #### L500.4050 #### [facility] [address] [place], [address] CHEST WITH CONTRAST Observed: 02/06/2018 Status: F Source: [place] 7:50 AM [facility] [place] Imaging Services [address] [place] [address] Chest WITH Contrast MR#: [id number] Acct: [id number] Name: CELINA URBINA Rep #: [id number] : 1960 F 58 From: Faye Ramos MD PCP: Candi Patel DO Status: REG CLI Study: Chest WITH Contrast Date of Exam: 02/06/18 Exam# [id number] Ordering Dr: Erlin Lorenzo MD STUDY: CT CHEST WITH CONTRAST REASON FOR EXAM: Female, 58 years old. History of breast cancer RADIATION DOSAGE (If Supplied By Facility): CTDIvol = ( 8.76 ) mGy, DLP = ( 823.08 ) mGycm TECHNIQUE: Transaxial imaging was performed following intravenous administration of 100 ml of Isovue 300 contrast material. Sagittal and coronal reconstructions were performed. Individualized dose optimization techniques were used for this CT. COMPARISON: None. FINDINGS: There is minimal biapical scarring. There are no lung nodules. There are no focal airspace opacities. There are minimal coarse markings in the periphery of both lung bases. There is no demonstrated pleural abnormality. The heart is normal in size. The mediastinum is unremarkable. The hilar regions are unremarkable. The pulmonary arteries are unremarkable. The thoracic aorta is within normal limits. There are minimal degenerative changes in the visualized spine. There are no significant abnormalities in the visualized upper abdomen. CT/Chest WITH Contrast IMPRESSION: There is no evidence of metastatic disease in the chest. There are no lung nodules. There is no pleural effusion or significant lymphadenopathy. There are mild chronic changes in the lung apices. There is minimal atelectasis and/or scarring in both lung bases. Electronically Signed: Faye Ramos MD at 20:52 EST Tel Direct: [phone], Service support , CC: Erlin Lorenzo MD; Candi Patel DO Stock Clipper: Signed ABDOMEN/PELVIS WITH Observed: 02/06/2018 Status: F Source: [place] CONTRAST 7:50 AM [facility] [place] [facility] Imaging Services [address] [place] [address] Abdomen/Pelvis WITH Contrast MR#: [id number] Acct: [id number] Name: CELINA URBINA Rep #: [id number] : 1960 F 58 From: Faye Ramos MD PCP: Candi Patel DO Status: REG CLI Study: Abdomen/Pelvis WITH Contrast Date of Exam: 02/06/18 Exam# [id number] Ordering Dr: Erlin Lorenzo MD STUDY: CT ABDOMEN AND PELVIS WITH CONTRAST REASON FOR EXAM: Female, 58 years old. History of breast cancer RADIATION DOSAGE (If Supplied By Facility): CTDIvol = ( 8.76 ) mGy, DLP = ( 823.08 ) mGycm TECHNIQUE: Transaxial images were obtained from the lower chest to the upper thighs with oral contrast. 100 ml of Isovue 300 contrast was administered. Sagittal and coronal images were reconstructed. Individualized dose optimization techniques were used for this CT. COMPARISON: CT abdomen and pelvis report dated November 23, 2012 FINDINGS: The lower chest is dictated separately. The liver is unremarkable. The gallbladder and biliary system are unremarkable. The spleen is unremarkable. The pancreas is unremarkable. The adrenal glands are unremarkable. The right kidney is unremarkable. There is no dilatation of the collecting system in the right kidney. The left kidney is unremarkable. There is no dilatation of the collecting system in the left kidney. There is a small hiatal hernia. The small bowel is unremarkable. There are diverticula scattered throughout the colon without adjacent stranding. There is mild wall thickening in the sigmoid. The appendix is surgically absent. The aorta and branch vessels are unremarkable. The inferior vena cava is unremarkable. There are small lymph nodes scattered in the retroperitoneum and mesentery. There is no free fluid in the abdomen. The urinary bladder is unremarkable. There is absence of the uterus likely from prior hysterectomy. There are small phleboliths scattered in the lower pelvis. The soft tissues of the abdominal wall are unremarkable. There are mild degenerative changes in the visualized spine. There is moderate decreased height of L1. There are marked degenerative facet changes in the lower lumbar spine, right greater than left. CT/Abdomen/Pelvis WITH Contrast IMPRESSION: There is no evidence of metastatic disease in the abdomen or pelvis. No bone lesions are seen. There is diverticulosis of the colon. Mild wall thickening in the sigmoid is consistent with chronic diverticular disease. There are no acute bowel abnormalities. There is no ascites, free air or significant lymphadenopathy. There is moderate compression of L1. There is no abnormal tracer activity in this vertebral body on the recent nuclear medicine bone scan indicating an old finding. Electronically Signed: Faye Ramos MD at 0:20 EST Tel Direct: [phone], Service support , CC: Erlin Lorenzo MD; Candi Patel DO Stock Clipper: Signed CBC W/DIFF, AUTOMATED Collected: 02/05/2018 Status: F Source: [place] 1:36 PM [facility] [place] [facility] Order Comment: Reason for Laboratory Test . TYPE CODE TESTS RESULT OUT OF RANGE REFERENCE UNITS LAB L100.1000 4.4-11.0 K/mm3 Normal WBC 5.4 LAB L100.1200 4.2-5.4 M/mm3 Normal RBC 4.41 LAB L100.1300 12.0-15.0 g/dl Normal HGB 13.1 LAB L100.1400 37-47 % Normal HCT 39.5 LAB L100.1500 81-99 fL Normal MCV 89.6 LAB L100.1600 27.0-32.0 pg Normal MCH 29.7 LAB L100.1700 32-36 g/gl Normal MCHC 33.2 LAB L100.1810 11.6-14.6 % Normal RDW CV 13.8 LAB L100.1820 35.1-43.9 fl High RDW SD 45.4 LAB L100.1900 150-450 K/mm3 Normal PLT 186 LAB L100.2000 6.2-12.0 fl Normal MPV 11.0 LAB L100.2100 47-70 % Normal NEUT% 69.8 LAB L100.2200 19-41 % Normal LY% 23.0 LAB L100.2300 0-10 % Normal MONO% 6.4 LAB L100.2400 0-5 % Normal EO% 0.2 LAB L100.2500 0-1 % Normal BASO% 0.6 LAB L100.2550 0.0-0.9 % Normal IM GRAN % 0.000 Result Comment: IG% - Immature Granulocytes (promyelocytes, myelocytes and metamyelocytes) > 1% indicates that a LEFT SHIFT is Present. LAB L100.2620 2.0-7.7 X10 3/uL Normal Absolute Neut 3.8 LAB L100.2720 0.83-4.51 X10 3/ul Normal Absolute Lymph 1.25 Performed By: #### L100.0100 #### [facility] [address] [place], [address] COMPREHENSIVE METABOLIC Collected: 02/05/2018 Status: F Source: [facility] 1:36 PM [facility] [place] [facility] Order Comment: Reason for Laboratory Test . TYPE CODE TESTS RESULT OUT OF RANGE REFERENCE UNITS LAB L501.0100 74-106 mg/dL Normal GLU 87 Result Comment: Please note revised GLUCOSE reference range effective 2017. LAB L501.1000 7-18 mg/dL Normal BUN 17 LAB L501.1100 0.55-1.02 mg/dL Normal CREAT,SERUM 0.57 Result Comment: The validity of the calculated GFR AND GFRAA in patients over 70 years has not been determined. Clinical correlation is essential. LAB L501.1110 >60 mL/min Normal EST GFR 114 Result Comment: Non- GFR Calc LAB L501.1115 >60 mL/min Normal EST GFR - AA 138 Result Comment: GFR Calc LAB L501.1300 10-20 RATIO High BUN/CRE 29.7 LAB L501.1500 6.4-8.2 g/dL T Normal PROT 6.7 LAB L501.1800 3.2-5.0 g/dL Normal ALB 3.6 LAB L501.1950 2.2-4.2 g/dL Normal GLOB 3.1 LAB L501.2000 0.9-2.4 RATIO Normal A/G 1.2 LAB L501.2200 8.5-10.1 mg/dL Low CA 8.3 LAB L501.4100 15-37 U/L Normal AST 21 LAB L501.4305 45-117 U/L High ALK P 120 LAB L501.4405 13-56 U/L Normal ALT 28 LAB L501.4600 0.20-1.00 mg/dL T Normal BILI 0.30 LAB L501.5300 136-145 mmol/L NA Normal 141 LAB L501.5600 3.5-5.1 mmol/L K Normal 4.0 LAB L501.5900 98-107 mmol/L High CL 109 LAB L501.6100 21.0-32.0 mmol/L Normal CO2 27.0 LAB L501.6200 5-15 Normal GAP 5 Performed By: #### L500.4050 #### [facility] [address] [place], [address] BONE SCAN WHOLE Observed: 02/02/2018 Status: F Source: [place] 8:01 AM [facility] [place] [facility] Imaging Services [address] [place] [address] Bone Scan Whole Body MR#: [id number] Acct: [id number] Name: CELINA URBINA Annette Rep #: [id number] : 1960 F 58 From: Kelvin Oleary DO PCP: Candi Patel DO Status: REG CLI Study: Bone Scan Whole Body Date of Exam: 02/02/18 Exam# [id number] Ordering Dr: Erlin Lorenzo MD CLINICAL: 58-year-old female with reported history of carcinoma of the breast. WHOLE BODY 99m Tc MDP RADIONUCLIDE BONE SCINTIGRAPHY COMPARISON: None available FINDINGS: Following the intravenous administration of 25.0 mCi of 99m Tc MDP, whole body bone images reveal: 1. Increased radiopharmaceutical concentration is identified in the upper-mid cervical spine posteriorly on the left and right, fourth-fifth lumbar vertebra posteriorly on the right, bilateral wrist articulations, right-left ankles, the midfoot bilaterally, acromioclavicular compartment of the right shoulder. 2. The remaining skeletal structures are scintigraphically unremarkable with normal-appearing renal images and urinary bladder activity identified. Enhanced uptake is defined in the presumably asymptomatic bilateral knee arthroplasties most consistent with postsurgical change. An increase in tracer concentration is demonstrated in the bilateral mandible and maxilla most consistent with periostitis and/or periodontal disease. NM/Bone Scan Whole Body IMPRESSION: 1. The increase in radiopharmaceutical concentration identified in the cervical and lumbar spine, bilateral wrist and ankle articulations, right-left midfoot, the right shoulder is most consistent with degenerative arthritis. 2. There is no definitive typical scintigraphic evidence of diffuse axial skeletal metastatic disease on the current examination. Electronically Signed: Kelvin Oleary DO at 10:36 EST Tel , Service support , CC: Erlin Lorenzo MD; Candi Patel DO Stock Clipper: Signed ONCOLOGY FOLLOW-UP Observed: 01/13/2018 Status: F Source: [place] V[place] 10:04 AM [facility] Medical Records Department [address] [place] [id number] Oncology Follow-Up Visit 01/13/18 0940 MR#: [id number] Acct: [id number] Name: CELINA URBINA Rep #: [id number] : 1960 58 From: Roman Sargent DO PCP: Candi Patel DO Status: REG RCR Y Location: [facility] Date of Service: 01/13/18 Last Clinic Visit: 12/17/17 Diagnosis: Celina Urbina is a 57-year-old female diagnosed with pathologic stage I (pT1b pN0 (sn) Mx) grade 3 invasive ductal carcinoma (ER >95%, ND 6%, Her2 0 IHC) of the left breast (12 o clock) s/p lumpectomy and SLNBx (09/18/17). Oncotype score was 28 and the patient did not pursue chemotherapy. From 11/19/17 - 12/17/17: received 4256 cGy in 16 fractions to the left breast followed by a sequential boost consisting of 1000 cGy in 5 fractions was delivered to the lumpectomy cavity. History of Present Illness: 08/21/2017: Patient completed bilateral screening mammography which demonstrated evidence of a 1 x 1 cm spiculated nodule in the upper deep midportion of the left breast. Correlation with ultrasound is recommended, BI-RADS Category 0. 08/27/2017: Left breast ultrasound was performed which demonstrated a 7 x 8 x 7 mm irregular nodular hypoechoic density at the 12 o'clock position in the left breast about 4 cm from the nipple which corresponds to the area of mammographic abnormality, BI-RADS Category 5. 09/03/2017: Ultrasound-guided core biopsy left breast was performed and pathology demonstrated grade 2 invasive ductal carcinoma (ER >95%, ND 6%, Her2 0 IHC) with focal DCIS. 09/18/2017: Patient underwent left breast lumpectomy and sentinel lymph node biopsy. Pathology demonstrated a 1 x 1 x 1 cm grade 3 invasive ductal carcinoma, LVSI not identified, margins negative (closest margin is 5 mm posterior), grade 3 focal DCIS is present, one sentinel lymph node was recovered and negative for disease involvement, pT1b N0 (sn) Mx. From 11/19/17 - 12/17/17: received 4256 cGy in 16 fractions to the left breast. A sequential boost consisting of 1000 cGy in 5 fractions was delivered to the lumpectomy cavity. Radiation Treatment History: From 11/19/17 - 12/17/17: received 4256 cGy in 16 fractions to the left breast. A sequential boost consisting of 1000 cGy in 5 fractions was delivered to the lumpectomy cavity. Interval History: Patient returns for a routine follow-up one month after completing adjuvant radiation therapy to the left breast. She reports doing very well this time. She believes her skin erythema and desquamation has nearly completely healed although she does admit to some residual tanning of the outer portion of the left breast. She denies having any new swelling in the breast or arm and has a normal arm range of motion without soreness or stiffness. She is currently taking tamoxifen and denies having any toxicities other than continued mild fatigue. She denies having cough, shortness of breath, hemoptysis, chest pain, headache, bone pain, unexpected weight loss. She continues to complete all activities of daily living without any difficulty and denies having any other problems or concerns at this time. I have reviewed the medical, surgical, and other pertinent history in details and have updated medication and allergy information in the electronic medical record. Review of Systems: A 12-point review of systems was completed and was negative except for what is noted in the HPI/Interval History and by the nurse. Height/Weight/BMI: Height: 5 ft 4 in Weight: 157.3 lbs (treatment weight: 156.9 lbs) Vital Signs Temperature 98.4 F 01/13/18 09:01 Temperature Source Oral 01/13/18 09:01 Pulse Rate 84 01/13/18 09:01 Physical Exam: ECO KARNOFSKY SCORE: 100% CONSTITUTIONAL: Well-developed, well-nourished, and in no apparent distress. HEENT: Mucous membranes moist. No evidence of thrush or lesions within the visualized oropharynx or oral cavity. No trismus. Pupils are equal, round, and reactive to light and accommodation. Extraocular movements are intact. Sclerae are anicteric. NECK: Supple,with no thyromegaly, and non-tender. Trachea midline. No cervical or supraclavicular adenopathy noted. CARDIAC: Regular rate and rhythm. Normal S1, S2. No murmurs, rubs, or gallops. PULMONARY/CHEST: Lungs are clear to auscultation and percussion bilaterally. No wheezes, rhonchi, or crackles noted. No increased work of breathing. ABDOMINAL: Abdomen soft, non-tender, non-distended. No hepatomegaly. Normoactive bowel sounds in all four quadrants. No guarding, rebound. BACK: Straight and aligned. No CVA tenderness. Axial skeleton non-tender to percussion. BREAST: Bilateral breasts are examined the seated and supine position. Breasts appear symmetrical. Within the superior portion of the left breast there is a small well-healed lumpectomy incision with mild firm scar tissue deep to this, there are no lesions palpated and no pain with palpation. There is no breast erythema or desquamation noted, there is still some residual tanning in the lateral aspect of the left breast extending into the axilla. There is a well-healed small axillary lymph node incision with no palpable lesions within the left axilla. There are no lesions in the right breast or right axilla. ETREMITIES: Full range of motion in all four extremities, with normal strength equally and symmetrically. No evidence of edema. No clubbing. NEUROLOGICAL EXAM: Alert and oriented x 3. Cranial nerves II through XII are grossly intact. No focal neurological deficit. Speech is fluent. There is no upper or lower extremity sensory deficit or motor deficit. Muscle strength is 5/5 in all muscle groups. Gait and posture are steady. PSYCHIATRIC: Appropriate mood and affect for the clinical situation. Imaging: As per HPI No new imaging to review Laboratory Data: Laboratory Tests WBC 4.3 L Hgb 14.6 Plt Count 179 Alkaline Phosphatase 137 H Otherwise CMP 12/22/2017 unremarkable Assessment/Plan: Celina Urbina is a 57-year-old female diagnosed with pathologic stage I (pT1b pN0 (sn) Mx) grade 3 invasive ductal carcinoma (ER >95%, ND 6%, Her2 0 IHC) of the left breast (12 o clock) s/p lumpectomy and SLNBx (09/18/17). Oncotype score was 28 and the patient did not pursue chemotherapy. From 11/19/17 - 12/17/17: received 4256 cGy in 16 fractions to the left breast followed by a sequential boost consisting of 1000 cGy in 5 fractions was delivered to the lumpectomy cavity. Patient returns for a one-month follow-up after completing adjuvant radiation therapy to the left breast. Clinically she is doing very well and has recovered from all toxicities other than mild residual tanning of the left breast. There is no evidence of disease on exam. I reviewed skin care instructions including lotion use over the treated area and sun protection including sun avoidance and using high SPF sunscreen. Due to elevated alk phos medical oncology has ordered CT chest abdomen pelvis and bone scan to ensure there is no metastatic disease. Patient is currently taking tamoxifen without any difficulty, I recommended taking hormone therapy for at least 5-10 years, she does have osteoporosis and is taking vitamin D and calcium. I recommended pursuing a healthy well-balanced plant based diet as well as persistent cardiovascular exercise program to maintain healthy weight and maximally reduce risk of disease recurrence. For continued disease follow-up I recommend having breast exam every 3-4 months during the first year and resuming screening mammography in August 2018. Patient was in agreement with our plan and was instructed to call with any further questions or concerns in the interim. Roman Sargent DO, MS Pediatric Ophthalmologist, Department of Radiation Oncology [facility] 01/13/18 1004 <Electronically signed by Roman Sargent DO> Date Roman Saregnt DO CC: Kumar Esparza MD; Erlin Lorenzo MD Signed PROGRESS Observed: 12/30/2017 Status: COMPLETED Source: [place] 12:26 PM CLINIC OTHER CAMPUS REPOSITORY HNO ID: [id number] Author: Caryn LindquistCt) KALE Strickland Service: (none) Author Type: Clinical Keg Raiser Type: Progress Notes Filed: 12/30/2017 12:26 PM Note Text: NAME:Celina Urbina DATE: December 30, 2017 [facility]#: [id number] Lower Extremity X-Ray(s): Knee, AP / Lat / Merchant Bilateral and Wt. Bearing COMPLETED TECH ID SIGN: TYSON CASTILLO PROGRESS Observed: 12/30/2017 Status: COMPLETED Source: [place] 9:22 AM [facility] REPOSIT[facility] HNO ID: [id number] Author: Tania Gibson Service: (none) Author Type: Physician Type: Progress Notes Filed: 12/30/2017 9:41 AM Note Text: DEPARTMENT OF ORTHOPAEDICS CC: Follow-up visit after knee replacement HPI: Ms. Urbina is here today for her 1 year clinical follow up status post bilateral total knee replacement. Since her last visit Ms. Urbina conveys the interval has been complicated by recent diagnosis of stage 1 breast cancer. Pleased with outcome: Yes Pain? 0 on a scale of 1-10 Ambulatory support: none Distance able to walk:unlimited Stairs Normal sequence Requires a handrail: Yes Able to kneel: Yes, but feels wierd Able to arise from chair: Yes with ease Back issues: Yes Pain Medication: none REVIEW OF SYSTEMS: refer to [facility] report PAST MEDICAL HISTORY Diagnosis Date - Dyspnea and respiratory abnormalities - Ecchymoses, spontaneous - Essential hypertension, benign - Mitral valve disorders(424.0) PAST SURGICAL HISTORY Procedure Laterality Date - BREAST BIOPSY Bilateral 1996 benign - EXPLORATORY OF ABDOMEN laparoscopy endometriosus x 2 with USO with incidental appendectomy - KNEE ARTHROSCOPY Right 2012 meniscus - TONSILLECTOMY HX - TOTAL ABDOM HYSTERECTOMY 2005 Hysterectomy, MECCA USO - TOTAL KNEE REPLACEMENT Bilateral 12/30/2016 Knee replacement, total Current Outpatient Prescriptions: tamoxifen (NOLVADEX) 20 mg tablet Take 20 mg by mouth once daily. Disp: Rfl: 3 ibuprofen-famotidine (DUEXIS) 800-26.6 mg tab Take 800 mg by mouth three times daily as needed. Disp: 90 tablet Rfl: 0 nebivolol (BYSTOLIC) 5 mg tablet Take 1 tablet by mouth once daily. Disp: Rfl: 0 ascorbic acid, vitamin C, (VITAMIN C) 500 mg tablet Take 1 tablet by mouth twice daily with meals. Disp: 60 tablet Rfl: 0 Cholecalciferol, Vitamin D3, (VITAMIN D-3) 2,000 unit cap Take by mouth once daily. Disp: Rfl: RANITIDINE HCL (ZANTAC 150 EFFERDOSE ORAL) Take by mouth as needed. Disp: Rfl: ALBUTEROL INHALATION Inhale as instructed as needed. Disp: Rfl: AMITRIPTYLINE 25 MG TAB Take one(1) tablet daily. Disp: Rfl: 0 oxyCODONE IR (ROXICODONE) 5 mg immediate release tablet Take 1 tablet by mouth every 8 hours as needed for Pain (for acute post op pain). Disp: 30 tablet Rfl: 0 ferrous sulfate 325 mg (65 mg iron) tablet Take 1 tablet by mouth twice daily with meals. Disp: Rfl: 0 docusate sodium (COLACE) 100 mg capsule Take 1 capsule by mouth twice daily. Disp: 60 capsule Rfl: 0 polyethylene glycol 3350 (MIRALAX, GLYCOLAX) 17 gram packet Take 1 Packet by mouth once daily. Disp: 30 Packet Rfl: 0 enoxaparin (LOVENOX) 40 mg/0.4 mL syrg Inject 0.4 mL subcutaneously once daily. Disp: 11 Syringe Rfl: 0 No current facility-administered medications for this visit. ALLERGIES Allergen Reactions - Franklin Juice GI Upset, Vomiting Oranges and orange juice FAMILY HISTORY Problem Relation Age of Onset - Heart Father d. 86 h/o mesothelioma - Cancer Father renal - Hypertension Mother - Thyroid Mother Social History Substance Use Topics - Smoking status: Never Smoker - Smokeless tobacco: Never Used - Alcohol use Yes Comment: 1-2//week EXAMINATION: GENERAL:normal body habitus and no apparent distress RESP:Unlabored with no shortness of breath CV: No extremity swelling, varices, edema, pallor, erythema Ms. Urbina has no difficulty arising out of a chair and has no difficulty ambulating in the exam room. her gait was normal, able to toe walk without difficulty and able to heel walk without difficulty. LOWER EXTREMITIES: On the exam table seated and supine, hip range of motion bilaterally was symmetric, unrestricted and non-painful. No trochanteric pain to palpation. Straight leg raise and femoral nerve stretch tests were negative for acute radicular symptoms to suggest spine problems. Examination of the right knee reveals Single previous incisions and has no erythema, warmth or tenderness. Range of motion is 0 degrees in extension and 125 degrees of flexion actively. No varus-valgus instability with patella tracking midline. No patellofemoral crepitus. Examination of the left knee reveals Single previous incisions and has no erythema, warmth or tenderness. Range of motion is 0 degrees in extension and 125 degrees of flexion actively. No varus-valgus instability with patella tracking midline. No patellofemoral crepitus. Both lower extremities were neurovascularly intact, has no evidence of cellulitis, and has no distal swelling. X-RAYS: bilateral Triathlon cruciate retained total knee showing good component sizing, position, and alignment. The patella tracks midline. Radiographic review has no findings of loosening, has no findings of wear, and has no other complicating process. ASSESSMENT: S/P bilateral uncemented total knee arthroplasty, significantly improved from pre-operative state and doing well and back to an active lifestyle PLAN: Continue with activities as tolerated Follow up will be in 4 years.. If there are any questions or problems, patient instructed to call the office. Rx Drug Management: Refill for Duexis Tania Gibson MD XR KNEE 3V AP/LAT/JAG Observed: 12/30/2017 Status: F Source: [facility] [place] 9:08 AM CLINIC OTHER CAMPUS REPOSITORY * * *Final Report* * * DATE OF EXAM: Dec 30 2017 9:08AM ADDI 5635 - XR KNEE 3V AP/LAT/JAG YVON / PROCEDURE REASON: M25.562-Left knee pain, unspecified chronicity * * * * Physician Interpretation * * * * PROCEDURE: Bilateral knees INDICATION: Left knee pain, unspecified chronicity .1 YEAR CHECK UP BILATERAL TKA TECHNIQUE: XR KNEE 3V AP/LAT/JAG YVON COMPARISON: 02/04/2017 FINDINGS: Bilateral total knee arthroplasties remain in satisfactory position without evidence for loosening. No fracture or joint effusion is seen bilaterally. IMPRESSION: Stable bilateral TKAs Stock Clipper: PSCJana Transcribe Date/Time: Dec 30 2017 9:50A Dictated by : VICTOR M HONG MD This examination was interpreted and the report reviewed and electronically signed by: VICTOR M HONG MD on Dec 30 2017 9:51AM EST [id number] Observed: 12/30/2017 Status: COMPLETED Source: [place] 9:00 AM [facility] REPOSITORY Office Visit (ORMDNA) URBINACELINA BROWN ([id number]) 1960 F Date Time Provider Department 12/30/17 9:00 AM TANIA GIBSON During your visit today, we recorded the following information about you: Weight 70.[address] 12/30/2017 9:24 AM Signed Patient presents with: Recheck: bilateral tka Tania Gibson MD 12/30/2017 9:41 AM Signed DEPARTMENT OF ORTHOPAEDICS CC: Follow-up visit after knee replacement HPI: Ms. Urbina is here today for her 1 year clinical follow up status post bilateral total knee replacement. Since her last visit Ms. Urbina conveys the interval has been complicated by recent diagnosis of stage 1 breast cancer. Pleased with outcome: Yes Pain? 0 on a scale of 1-10 Ambulatory support: none Distance able to walk:unlimited Stairs Normal sequence Requires a handrail: Yes Able to kneel: Yes, but feels wierd Able to arise from chair: Yes with ease Back issues: Yes Pain Medication: none REVIEW OF SYSTEMS: refer to Orth[facility] report PAST MEDICAL HISTORY Diagnosis Date - Dyspnea and respiratory abnormalities - Ecchymoses, spontaneous - Essential hypertension, benign - Mitral valve disorders(424.0) PAST SURGICAL HISTORY Procedure Laterality Date - BREAST BIOPSY Bilateral 1996 benign - EXPLORATORY OF ABDOMEN laparoscopy endometriosus x 2 with USO with incidental appendectomy - KNEE ARTHROSCOPY Right 2012 meniscus - TONSILLECTOMY HX - TOTAL ABDOM HYSTERECTOMY 2005 Hysterectomy, MECCA USO - TOTAL KNEE REPLACEMENT Bilateral 12/30/2016 Knee replacement, total Current Outpatient Prescriptions: tamoxifen (NOLVADEX) 20 mg tablet Take 20 mg by mouth once daily. Disp: Rfl: 3 ibuprofen-famotidine (DUEXIS) 800-26.6 mg tab Take 800 mg by mouth three times daily as needed. Disp: 90 tablet Rfl: 0 nebivolol (BYSTOLIC) 5 mg tablet Take 1 tablet by mouth once daily. Disp: Rfl: 0 ascorbic acid, vitamin C, (VITAMIN C) 500 mg tablet Take 1 tablet by mouth twice daily with meals. Disp: 60 tablet Rfl: 0 Cholecalciferol, Vitamin D3, (VITAMIN D-3) 2,000 unit cap Take by mouth once daily. Disp: Rfl: RANITIDINE HCL (ZANTAC 150 EFFERDOSE ORAL) Take by mouth as needed. Disp: Rfl: ALBUTEROL INHALATION Inhale as instructed as needed. Disp: Rfl: AMITRIPTYLINE 25 MG TAB Take one(1) tablet daily. Disp: Rfl: 0 oxyCODONE IR (ROXICODONE) 5 mg immediate release tablet Take 1 tablet by mouth every 8 hours as needed for Pain (for acute post op pain). Disp: 30 tablet Rfl: 0 ferrous sulfate 325 mg (65 mg iron) tablet Take 1 tablet by mouth twice daily with meals. Disp: Rfl: 0 docusate sodium (COLACE) 100 mg capsule Take 1 capsule by mouth twice daily. Disp: 60 capsule Rfl: 0 polyethylene glycol 3350 (MIRALAX, GLYCOLAX) 17 gram packet Take 1 Packet by mouth once daily. Disp: 30 Packet Rfl: 0 enoxaparin (LOVENOX) 40 mg/0.4 mL syrg Inject 0.4 mL subcutaneously once daily. Disp: 11 Syringe Rfl: 0 No current facility-administered medications for this visit. ALLERGIES Allergen Reactions - Franklin Juice GI Upset, Vomiting Oranges and orange juice FAMILY HISTORY Problem Relation Age of Onset - Heart Father d. 86 h/o mesothelioma - Cancer Father renal - Hypertension Mother - Thyroid Mother Social History Substance Use Topics - Smoking status: Never Smoker - Smokeless tobacco: Never Used - Alcohol use Yes Comment: 1-2//week EXAMINATION: GENERAL:normal body habitus and no apparent distress RESP:Unlabored with no shortness of breath CV: No extremity swelling, varices, edema, pallor, erythema Ms. Urbina has no difficulty arising out of a chair and has no difficulty ambulating in the exam room. her gait was normal, able to toe walk without difficulty and able to heel walk without difficulty. LOWER EXTREMITIES: On the exam table seated and supine, hip range of motion bilaterally was symmetric, unrestricted and non-painful. No trochanteric pain to palpation. Straight leg raise and femoral nerve stretch tests were negative for acute radicular symptoms to suggest spine problems. Examination of the right knee reveals Single previous incisions and has no erythema, warmth or tenderness. Range of motion is 0 degrees in extension and 125 degrees of flexion actively. No varus-valgus instability with patella tracking midline. No patellofemoral crepitus. Examination of the left knee reveals Single previous incisions and has no erythema, warmth or tenderness. Range of motion is 0 degrees in extension and 125 degrees of flexion actively. No varus-valgus instability with patella tracking midline. No patellofemoral crepitus. Both lower extremities were neurovascularly intact, has no evidence of cellulitis, and has no distal swelling. X-RAYS: bilateral Triathlon cruciate retained total knee showing good component sizing, position, and alignment. The patella tracks midline. Radiographic review has no findings of loosening, has no findings of wear, and has no other complicating process. ASSESSMENT: S/P bilateral uncemented total knee arthroplasty, significantly improved from pre-operative state and doing well and back to an active lifestyle PLAN: Continue with activities as tolerated Follow up will be in 4 years.. If there are any questions or problems, patient instructed to call the office. Rx Drug Management: Refill for Duexis Tania Gibson MD Referring Provider: TANIA GIBSON [[id number]] Allergies As of Date: 12/30/2017 Noted Allergy Reaction ORANGE JUICE 10/15/2016 8 - GI Upset 11 - Vomiting Comments: Oranges and orange juice Date Reviewed: 12/30/2017 Reviewed by: Tania Gibson - Fully Assessed Reason for Visit: Recheck [92] Cmt: bilateral tka Primary Visit Diagnosis:Status post total bilateral knee replacement [Z96.653] Prescriptions as of 12/30/2017 Sig: TAMOXIFEN 20 MG TABLET Take 20 mg by mouth once tamera* X IBUPROFEN 800 MG-FAMOTIDINE 2* Take 800 mg by mouth three ti* NEBIVOLOL 5 MG TABLET Take 1 tablet by mouth once d* ASCORBIC ACID (VITAMIN C) 500* Take 1 tablet by mouth twice * CHOLECALCIFEROL (VITAMIN D3) * Take by mouth once daily. ZANTAC 150 EFFERDOSE ORAL Take by mouth as needed. ALBUTEROL INHALATION Inhale as instructed as need* * AMITRIPTYLINE 25 MG TABLET Take one(1) tablet daily. OXYCODONE 5 MG TABLET Take 1 tablet by mouth every * FERROUS SULFATE 325 MG (65 MG* Take 1 tablet by mouth twice * DOCUSATE SODIUM 100 MG CAPSULE Take 1 capsule by mouth twice* POLYETHYLENE GLYCOL 3350 17 G* Take 1 Packet by mouth once d* ENOXAPARIN 40 MG/0.4 ML SUBCU* Inject 0.4 mL subcutaneously * Problem List As Of Date 12/30/2017 Noted Resolved Bilateral primary osteoarthritis of knee [M17.0]INVALID FOR*01/01/2017 More... Essential hypertension [I10] INVALID FOR* Mild intermittent asthma [J45.20] INVALID FOR* Status post bilateral knee replacements [Z96.65*INVALID FOR* Visit Notes: >> Katy Worrell CT e Dec 30, 2017 9:18 AM Status: Signed Patient presents with: Recheck: bilateral tka Encounter Status:Closed by TANIA GIBSON MD on 12/30/17 ONCOLOGY VISIT REPORT Observed: 12/22/2017 Status: F Source: [place] 3:00 PM [facility] [place] [facility] [address] [place] [id number] OFFICE VISIT Date of Service: 12/22/17 1453 MR#: [id number] Acct: [id number] Name: CELINA URBINA Rep #: [id number] : 1960 From: Erlin Lorenzo MD Age/Sex: 57/F Location: [facility]MD Status: Signed Subjective - Date of Service Date of Service:: 12/22/17 - Chief Complaint F/U for further management of Left breast cancer. - History of Present Illness 57y.o.woman presented with abnormal mammogram on 08/21/2017 which a 1 x 1 cm spiculated nodule in the left breast. US of left breast on 08/27/2017 showed 8 mm irregular nodular hypoechoic density at the 12 o'clock position in the left breast about 4 cm from the nipple which corresponds to the area of mammographic abnormality, BI-RADS Category 5. Ultrasound-guided core biopsy was done on 09/03/2017, pathology showed invasive ductal carcinoma, grade 2, (ER >95%, ND 6%, Her2 0 IHC) with focal DCIS. She went on to have left breast lumpectomy and sentinel lymph node biopsy on 09/18/2017. Pathology demonstrated a 10mm grade 3 invasive ductal carcinoma, margins negative (closest margin is 5 mm posterior), grade 3, focal DCIS is present, one sentinel lymph node was recovered and negative for disease involvement, pT1b N0 (sn) Mx. Bone density on 08/21/2017 showed osteoporosis. Oncotype DX was 28, intermediate risk, Pt elected hormonal therapy. She received adjuvant Radiation therapy from 11/19/2017 to 12/17/2017. Comes in for follow up. - Past Medical/Social History Past Medical History Cancer: Breast cancer Social History Smoking Status Never smoker Review of Systems Constitutional:: Denies: Fever, Sweats, Weight loss, Appetite change, Chills Cardiovascular:: Denies: Chest pain, Palpitations, Dyspnea on exertion, Orthopnea, PND, Shortness of breath Respiratory: Denies: Cough, Hemoptysis, Shortness of Breath, Wheezing Gastrointestinal:: Denies: Abdominal pain, Nausea, Vomiting, Diarrhea, Constipation, Hematochezia Genitourinary: Denies: Dysuria, Hematuria, 15, Flank pain Musculoskeletal:: Denies: Back pain, Myalgia, Arthralgia Skin: Denies: Rash, Skin Changes, Wounds Neurological:: Denies: Headache, Dizziness, Visual changes, Tinnitus, Hearing loss Psychiatric: Denies: Anxiety, Depression, Homicidal Ideations, Suicidal Ideations Vital Signs Height 5 ft 4 in Weight: 69.4 kg Weight in Pounds 153.0 lbs BMI 26.2 Pulse Ox 98 - Physical Exam General: Alert, Oriented x3, No apparent distress Laboratory Data: Laboratory Tests WBC 4.3 L (4.4-11.0) K/mm3 RBC 4.83 (4.2-5.4) M/mm3 Hgb 14.6 (12.0-15.0) g/dl Assessment and Plan Left breast cancer stage IA(pT1 pN0 M0) ER positive, ND positive, Her2 negative. S/P lumpectomy and sentinel node L Axillary dissection. Node negative, margins negative. Oncotype DX score is 28- intermediate score. Finished Adjuvant Radiation therapy on 12/17/2017. Osteoporosis. S/P bilateral oophorectomy and hysterectomy. Increased Alkaline Phosphatase R/O metastatic disease. Plan is to Tamoxifen 20mg daily after adjuvant Radiation therapy. Obtain CT c/a/p and bone scan. RTC 6 wks with CBC/CMP. Medications: Prescriptions This Visit Medication Instructions Recorded Ibuprofen/Famotidine [Duexis 800 mg PO DAILY PRN 10/16/17 800-26.6 mg Tablet] Tamoxifen Citrate [Nolvadex] 20 mg PO DAILY #90 tablet 12/22/17 Primary Care Provider: Candi Patel Referring Provider: Kumar Esparza, - Problem List (1) Osteoporosis Status: Chronic (2) Breast cancer of upper-inner quadrant of left female breast Status: Chronic Qualifiers: Estrogen receptor status: positive Qualified Code(s): C50.212 - Malignant neoplasm of upper-inner quadrant of left female breast; Z17.0 - Estrogen receptor positive status [ER+] (3) Blood alkaline phosphatase increased compared with prior measurement Status: Acute Code Visit Office Visits / Consults: [id number] OV L4 Est 12/22/17 1500 <Electronically signed by Erlin Lorenzo MD> Date Erlin Lorenzo MD Cosigner Signature: Date (if applicable) CC: Candi Patel DO CBC W/DIFF, AUTOMATED Collected: 12/22/2017 Status: F Source: [place] 1:59 PM [facility] [place] [facility] Order Comment: Reason for Laboratory Test . TYPE CODE TESTS RESULT OUT OF RANGE REFERENCE UNITS LAB L100.1000 4.4-11.0 K/mm3 Low WBC 4.3 LAB L100.1200 4.2-5.4 M/mm3 Normal RBC 4.83 LAB L100.1300 12.0-15.0 g/dl Normal HGB 14.6 LAB L100.1400 37-47 % Normal HCT 43.3 LAB L100.1500 81-99 fL Normal MCV 89.6 LAB L100.1600 27.0-32.0 pg Normal MCH 30.2 LAB L100.1700 32-36 g/gl Normal MCHC 33.7 LAB L100.1810 11.6-14.6 % Normal RDW CV 13.8 LAB L100.1820 35.1-43.9 fl High RDW SD 45.1 LAB L100.1900 150-450 K/mm3 Normal PLT 179 LAB L100.2000 6.2-12.0 fl Normal MPV 10.8 LAB L100.2100 47-70 % Normal NEUT% 67.7 LAB L100.2200 19-41 % Normal LY% 19.3 LAB L100.2300 0-10 % High MONO% 12.1 LAB L100.2400 0-5 % Normal EO% 0.0 LAB L100.2500 0-1 % Normal BASO% 0.7 LAB L100.2550 0.0-0.9 % Normal IM GRAN % 0.200 Result Comment: IG% - Immature Granulocytes (promyelocytes, myelocytes and metamyelocytes) > 1% indicates that a LEFT SHIFT is Present. LAB L100.2620 2.0-7.7 X10 3/uL Normal Absolute Neut 2.9 LAB L100.2720 0.83-4.51 X10 3/ul Normal Absolute Lymph 0.83 Performed By: #### L100.0100, L500.4050 #### [facility] [address] [place], [place], [address] COMPREHENSIVE METABOLIC Collected: 12/22/2017 Status: F Source: [facility] 1:59 PM [facility] [place] [facility] Order Comment: Reason for Laboratory Test . TYPE CODE TESTS RESULT OUT OF RANGE REFERENCE UNITS LAB L501.0100 74-106 mg/dL Normal GLU 96 Result Comment: Please note revised GLUCOSE reference range effective 2017. LAB L501.1000 7-18 mg/dL Normal BUN 14 LAB L501.1100 0.55-1.02 mg/dL Normal CREAT,SERUM 0.67 Result Comment: The validity of the calculated GFR AND GFRAA in patients over 70 years has not been determined. Clinical correlation is essential. LAB L501.1110 >60 mL/min Normal EST GFR 95 Result Comment: Non- GFR Calc LAB L501.1115 >60 mL/min Normal EST GFR - AA 115 Result Comment: GFR Calc LAB L501.1255 ml/min Normal Estimated CRCL 78.07 LAB L501.1300 10-20 RATIO High BUN/CRE 20.8 LAB L501.1500 6.4-8. g/dL Normal 2 T PROT 7.4 LAB L501.1800 3.2-5. g/dL Normal 0 ALB 3.9 LAB L501.1950 2.2-4. g/dL Normal 2 GLOB 3.5 LAB L501.2000 0.9-2. RATIO Normal 4 A/G 1.1 LAB L501.2200 8.5-10 mg/dL Normal .1 CA 8.9 LAB L501.4100 15-37 U/L Normal AST 16 LAB L501.4305 45-117 U/L High ALK P 137 LAB L501.4405 13-56 U/L Normal ALT 30 LAB L501.4600 0.20-1 mg/dL Normal .00 T BILI 0.40 LAB L501.5300 136-14 mmol/L Normal 5 NA 141 LAB L501.5600 3.5-5. mmol/L Normal 1 K 3.5 LAB L501.5900 98-107 mmol/L Normal CL 105 LAB L501.6100 21.0-3 mmol/L Normal 2.0 CO2 29.0 LAB L501.6200 5-15 Normal GAP 7 Performed By: #### L100.0100, L500.4050 #### [facility] [address] [place], [address] END OF TREATMENT Observed: 12/17/2017 Status: F Source: [place] SUMMARY 8:27 AM [facility] [place] [facility] [address] [place] [address] End of Treatment Summary Date of Service: 12/17/17818 MR#: [id number] Acct: [id number] Name: CELINA URBINA Rep #: [id number] : 1960 From: Roman Sargent Age/Sex: 57/F Location: [facility] Status: Signed End of Treatment Summary: Diagnosis: Celina Urbina is a 57-year-old female diagnosed with pathologic stage I (pT1b pN0 (sn) Mx) grade 3 invasive ductal carcinoma (ER >95%, ND 6%, Her2 0 IHC) of the left breast (12 o clock) s/p lumpectomy and SLNBx (09/18/17). Oncotype score was 28 and the patient did not pursue chemotherapy. Oncologic History: 08/21/2017: Patient completed bilateral screening mammography which demonstrated evidence of a 1 x 1 cm spiculated nodule in the upper deep midportion of the left breast. Correlation with ultrasound is recommended, BI-RADS Category 0. 08/27/2017: Left breast ultrasound was performed which demonstrated a 7 x 8 x 7 mm irregular nodular hypoechoic density at the 12 o'clock position in the left breast about 4 cm from the nipple which corresponds to the area of mammographic abnormality, BI-RADS Category 5. 09/03/2017: Ultrasound-guided core biopsy left breast was performed and pathology demonstrated grade 2 invasive ductal carcinoma (ER >95%, ND 6%, Her2 0 IHC) with focal DCIS. 09/18/2017: Patient underwent left breast lumpectomy and sentinel lymph node biopsy. Pathology demonstrated a 1 x 1 x 1 cm grade 3 invasive ductal carcinoma, LVSI not identified, margins negative (closest margin is 5 mm posterior), grade 3 focal DCIS is present, one sentinel lymph node was recovered and negative for disease involvement, pT1b N0 (sn) Mx. Oncotype score was found to be 28 and she elected to pursue hormone therapy alone The patient completed a course of external beam radiotherapy in our department. This treatment was delivered for curative intent. Treatment was given according to the following parameters: CELINA URBINA received 4256 cGy of mixed 10 and 15 MV photons in 16 fractions to the left breast with a 3D conformal technique consisting of FARIA and LPO chu with field in field for improved dose homogeneity. A sequential boost consisting of 1000 cGy of 12 MeV electrons in 5 fractions was delivered to the lumpectomy cavity. This brought the total dose delivered to the lumpectomy cavity to 5256 cGy in 21 fractions. The patient did not receive concurrent chemotherapy. Planning for hormone therapy following radiation. Date of First Treatment: 11/19/17 Date of Last Treatment: 12/17/17 Total Elapsed Days (including weekend and holidays): 27 Missed Treatments: none Response and Tolerance: The patient tolerated this course of radiotherapy well overall. The following radiation related toxicities developed during the course of radiation therapy: * Grade 1 skin erythema which was treated with Remedy and Hydrocortisone * Grade 1 fatigue Disposition: The patient tolerated the planned course of radiation therapy well without unexpected toxicity in an appropriate time course. I will have the patient follow- up in 4 weeks for a routine visit to assess resolution of radiation toxicity, skin care instructions provided. She is scheduled to meet again with medical oncology next week to initiate hormone therapy. The patient will maintain scheduled follow-up visits with the other providers. If we can provide any further information on this patient's course of care, please do not hesitate to ask. We would like to thank you very much for allowing us to participate in the care of this patient. Sincerely, Roman Sargent DO, MS Pediatric Ophthalmologist, Department of Radiation Oncology [facility] 12/17/17826 <Electronically signed by Roman Sargent DO> Date Roman Sargent DO Cosign Signature: Date (if applicable) CC: Kumar Esparza MD; Erlin Lorenzo MD; Candi Patel DO RADIATION ONCOLOGY Observed: 12/17/2017 Status: F Source: [place] VISIT 8:18 AM [facility] [place] [place] [address] OFFICE VISIT Date of Service: 12/17/17815 MR#: [id number] Acct: [id number] Name: CELINA URBINA #: [id number] : 1960 From: Roman Sargent DO Age/Sex: 57/F Location: D Status: Signed Date of Service: 12/17/17 Diagnosis: Celina Urbina is a 57-year-old female diagnosed with pathologic stage I (pT1b pN0 (sn) Mx) grade 3 invasive ductal carcinoma (ER >95%, ND 6%, Her2 0 IHC) of the left breast (12 o clock) s/p lumpectomy and SLNBx (09/18/17). Oncotype score returned at 28 and she opted to not pursue chemotherapy. Plan was made to complete adjuvant radiation therapy to the left breast consisting of 4256 cGy in 16 fractions followed by a boost to the lumpectomy PTV consisting of 1000 cGy in 5 fractions. Treatment Data: Treatment Site: Left breast Current total dose/Total dose planned: 4256 cGy / 4256 cGy; 1000 cGy / 1000 cGy Fraction number: ; Chemotherapy: none Subjective: Tolerating therapy well overall. Skin: mild erythema. No rash or desquamation. Mild itch around NAC and IMF. uses remedy Breast: no edema Pain: 0 / 10, occasional twinges. No pain medication Fatigue: mild, relieved by rest, still working Height/Weight/BMI: Height: 5 ft 4 in Weight: 71.804 kg Vital Signs Temperature 98.5 F 12/17/17 07:55 Temperature Source Oral 12/17/17 07:55 Objective: Gen: NAD Breast: grade 1 erythema. No rash or desquamation Assessment: Tolerated radiation therapy well overall. All treatment related imaging has been reviewed and approved. Skin: grade 1 erythema Fatigue: grade 1 Plan: Continue treatment as planned Reviewed skin care instructions, Remedy for skin, aquaphor if peeling develops, hydrocortisone for itch Follow-up in one month or sooner if needed, will see med onc next week for hormone therapy Thank you for allowing me to participate in the management and care of your patient. If I may answer any questions in the interim, please do not hesitate to contact me at any time. Roman Sargent DO, MS Pediatric Ophthalmologist, Department of Radiation Oncology [facility] 12/17/17817 <Electronically signed by Roman Sargent DO> Date Roman Sargent DO Cosigner Signature: Date (if applicable) CC: RADIATION ONCOLOGY Observed: 12/10/2017 Status: F Source: [place] VISIT 8:30 AM [facility] [address] [place], [place] [address] [place] [address] OFFICE VISIT Date of Service: 12/10/17826 MR#: [id number] Acct: [id number] Name: CELINA URBINA Rep #: [id number] : 1960 From: Roman Sargent DO Age/Sex: 57/F Location: [facility] Status: Signed Date of Service: 12/10/17 Diagnosis: Celina Urbina is a 57-year-old female diagnosed with pathologic stage I (pT1b pN0 (sn) Mx) grade 3 invasive ductal carcinoma (ER >95%, ND 6%, Her2 0 IHC) of the left breast (12 o clock) s/p lumpectomy and SLNBx (09/18/17). Oncotype score returned at 28 and she opted to not pursue chemotherapy. Plan was made to complete adjuvant radiation therapy to the left breast consisting of 4256 cGy in 16 fractions followed by a boost to the lumpectomy PTV consisting of 1000 cGy in 5 fractions. Treatment Data: Treatment Site: Left breast Current total dose/Total dose planned: 4256 cGy / 4256 cGy; 0 cGy / 1000 cGy Fraction number: ; 0 / 5 Chemotherapy: none Subjective: Tolerating therapy well overall. Skin: mild erythema. No rash or desquamation. Mild itch around NAC and IMF. uses remedy Breast: no edema Pain: 0 / 10, occasional twinges. No pain medication Fatigue: mild, relieved by rest, still working Height/Weight/BMI: Height: 5 ft 4 in Weight: 71.804 kg Vital Signs Temperature 98 F 12/10/17 08:26 Temperature Source Oral 12/10/17 08:26 Pulse Rate 69 12/10/17 08:26 Objective: Gen: NAD Breast: grade 1 erythema. No rash or desquamation Assessment: Tolerating radiation therapy well overall. All treatment related imaging has been reviewed and approved. Skin: grade 1 erythema Fatigue: grade 1 Plan: Continue treatment as planned Reviewed skin care instructions, will try hydrocortisone for itch Follow-up next week or sooner if needed Thank you for allowing me to participate in the management and care of your patient. If I may answer any questions in the interim, please do not hesitate to contact me at any time. Roman Sargent DO, MS Pediatric Ophthalmologist, Department of Radiation Oncology [facility] 12/10/17829 <Electronically signed by Roman Sargent DO> Date Roman Sargent DO Cosign Signature: Date (if applicable) CC: RADIATION ONCOLOGY Observed: 12/03/2017 Status: F Source: [place] VISIT 8:23 AM [facility] [address] [place] [address] OFFICE VISIT Date of Service: 12/03/17820 MR#: [id number] Acct: [id number] Name: CELINA URBINA Rep #: [id number] : 1960 From: Roman Sargent DO Age/Sex: 57/F Location: [facility] Status: Signed Date of Service: 12/03/17 Diagnosis: Celina Urbina is a 57-year-old female diagnosed with pathologic stage I (pT1b pN0 (sn) Mx) grade 3 invasive ductal carcinoma (ER >95%, ND 6%, Her2 0 IHC) of the left breast (12 o clock) s/p lumpectomy and SLNBx (09/18/17). Oncotype score returned at 28 and she opted to not pursue chemotherapy. Plan was made to complete adjuvant radiation therapy to the left breast consisting of 4256 cGy in 16 fractions followed by a boost to the lumpectomy PTV consisting of 1000 cGy in 5 fractions. Treatment Data: Treatment Site: Left breast Current total dose/Total dose planned: 2926 cGy / 4256 cGy; 0 cGy / 1000 cGy Fraction number: ; 0 / 5 Chemotherapy: none Subjective: Tolerating therapy well overall. Skin: mild erythema. No rash or desquamation. uses remedy Breast: no edema Pain: 0 / 10, occasional twinges Fatigue: mild, relieved by rest, still working Height/Weight/BMI: Height: 5 ft 4 in Weight: 71.804 kg Vital Signs Temperature 98.7 F 12/03/17 08:10 Temperature Source Oral 12/03/17 08:10 Objective: Gen: NAD Breast: grade 1 erythema. No rash or desquamation Assessment: Tolerating radiation therapy well overall. All treatment related imaging has been reviewed and approved. Skin: grade 1 erythema Fatigue: grade 1 Plan: Continue treatment as planned Reviewed skin care instructions Follow-up next week or sooner if needed Thank you for allowing me to participate in the management and care of your patient. If I may answer any questions in the interim, please do not hesitate to contact me at any time. Roman Sargent DO, MS Pediatric Ophthalmologist, Department of Radiation Oncology [facility] 12/03/17 2549 <Electronically signed by Roman Sargent DO> Date Roman Sargent DO Cosigner Signature: Date (if applicable) CC: RADIATION ONCOLOGY Observed: 11/26/2017 Status: F Source: [place] VISIT 8:14 AM [facility] [place] [address] OFFICE VISIT Date of Service: 11/26/17810 MR#: [id number] Acct: [id number] Name: CELINA URBINA Rep #: [id number] : 1960 From: Roman Sargent DO Age/Sex: 57/F Location: [facility] Status: Signed Date of Service: 11/26/17 Diagnosis: Celina Urbina is a 57-year-old female diagnosed with pathologic stage I (pT1b pN0 (sn) Mx) grade 3 invasive ductal carcinoma (ER >95%, ND 6%, Her2 0 IHC) of the left breast (12 o clock) s/p lumpectomy and SLNBx (09/18/17). Oncotype score returned at 28 and she opted to not pursue chemotherapy. Plan was made to complete adjuvant radiation therapy to the left breast consisting of 4256 cGy in 16 fractions followed by a boost to the lumpectomy PTV consisting of 1000 cGy in 5 fractions. Treatment Data: Treatment Site: Left breast Current total dose/Total dose planned: 1596 cGy / 4256 cGy; 0 cGy / 1000 cGy Fraction number: ; 0 / 5 Chemotherapy: none Subjective: Tolerating therapy well overall. Skin: mild erythema. No rash or desquamation Breast: no edema Pain: 0 / 10 Fatigue: mild, relieved by rest, still working Height/Weight/BMI: Height: 5 ft 4 in Weight: 71.804 kg Vital Signs Temperature 97.7 F L 11/19/17 08:19 Temperature Source Oral 11/19/17 08:19 Objective: Gen: NAD Breast: grade 1 erythema. No rash or desquamation Assessment: Tolerating radiation therapy well overall. All treatment related imaging has been reviewed and approved. Skin: grade 1 erythema Fatigue: grade 1 Plan: Continue treatment as planned Reviewed skin care instructions Follow-up next week or sooner if needed Thank you for allowing me to participate in the management and care of your patient. If I may answer any questions in the interim, please do not hesitate to contact me at any time. Roman Sargent DO, MS Pediatric Ophthalmologist, Department of Radiation Oncology [facility] 11/26/17 0814 <Electronically signed by Roman Sargent DO> Date Roman Sargent DO Cosigner Signature: Date (if applicable) CC: RADIATION ONCOLOGY Observed: 11/19/2017 Status: F Source: [place] VISIT 9:05 AM [facility] [place] [address] OFFICE VISIT Date of Service: 11/19/17 0859 MR#: [id number] Acct: [id number] Name: CELINA URBINA Rep #: [id number] : 1960 From: Roman Sargent DO Age/Sex: 57/F Location: [facility] Status: Signed Date of Service: 11/19/17 Diagnosis: Celina Urbina is a 57-year-old female diagnosed with pathologic stage I (pT1b pN0 (sn) Mx) grade 3 invasive ductal carcinoma (ER >95%, ND 6%, Her2 0 IHC) of the left breast (12 o clock) s/p lumpectomy and SLNBx (09/18/17). Oncotype score returned at 28 and she opted to not pursue chemotherapy. Plan was made to complete adjuvant radiation therapy to the left breast consisting of 4256 cGy in 16 fractions followed by a boost to the lumpectomy PTV consisting of 1000 cGy in 5 fractions. Treatment Data: Treatment Site: Left breast Current total dose/Total dose planned: 266 cGy / 4256 cGy; 0 cGy / 1000 cGy Fraction number: ; 0 / 5 Chemotherapy: none Subjective: Tolerating therapy well overall. Skin: no erythema, rash, or desquamation Breast: no edema Pain: 0 / 10 Fatigue: none Height/Weight/BMI: Height: 5 ft 4 in Weight: 71.804 kg Vital Signs Temperature 97.7 F L 11/19/17 08:19 Temperature Source Oral 11/19/17 08:19 Objective: Gen: NAD Breast: no erythema, rash, or desquamation Assessment: Tolerating radiation therapy well overall. All treatment related imaging has been reviewed and approved. No radiation related toxicities noted. Plan: Continue treatment as planned Reviewed skin care instructions Follow-up next week or sooner if needed Thank you for allowing me to participate in the management and care of your patient. If I may answer any questions in the interim, please do not hesitate to contact me at any time. Roman Sargent DO, MS Pediatric Ophthalmologist, Department of Radiation Oncology [facility] 11/19/17904 <Electronically signed by Roman Sargent DO> Date Roman Sargent DO Cosigner Signature: Date (if applicable) CC: ONCOLOGY VISIT REPORT Observed: 11/10/2017 Status: F Source: [place] 5:29 PM [facility] [address] [place] [address] OFFICE VISIT Date of Service: 11/05/17 1020 MR#: [id number] Acct: [id number] Name: CELINA URBINA Rep #: [id number] : 1960 From: Erlin Lorenzo MD Age/Sex: 57/F Location: [facility] Status: Signed Subjective - Date of Service Date of Service:: 11/05/17 - Chief Complaint Referred for further management of Left breast cancer. - History of Present Illness 57y.o.woman presented with abnormal mammogram on 08/21/2017 which a 1 x 1 cm spiculated nodule in the left breast. US of left breast on 08/27/2017 showed 8 mm irregular nodular hypoechoic density at the 12 o'clock position in the left breast about 4 cm from the nipple which corresponds to the area of mammographic abnormality, BI-RADS Category 5. Ultrasound-guided core biopsy was done on 09/03/2017, pathology showed invasive ductal carcinoma, grade 2, (ER >95%, ND 6%, Her2 0 IHC) with focal DCIS. She went on to have left breast lumpectomy and sentinel lymph node biopsy on 09/18/2017. Pathology demonstrated a 10mm grade 3 invasive ductal carcinoma, margins negative (closest margin is 5 mm posterior), grade 3, focal DCIS is present, one sentinel lymph node was recovered and negative for disease involvement, pT1b N0 (sn) Mx. Bone density on 08/21/2017 showed osteoporosis. Oncotype DX was requested and comes in for follow up. - Past Medical/Social History Past Medical History Cancer: Breast cancer Social History Smoking Status Never smoker Review of Systems Constitutional:: Denies: Fever, Sweats, Weight loss, Appetite change, Chills Cardiovascular:: Denies: Chest pain, Palpitations, Dyspnea on exertion, Orthopnea, PND, Shortness of breath Respiratory: Denies: Cough, Hemoptysis, Shortness of Breath, Wheezing Gastrointestinal:: Denies: Abdominal pain, Nausea, Vomiting, Diarrhea, Constipation, Hematochezia Genitourinary: Denies: Dysuria, Hematuria, 15, Flank pain Musculoskeletal:: Denies: Back pain, Myalgia, Arthralgia Skin: Denies: Rash, Skin Changes, Wounds Neurological:: Denies: Headache, Dizziness, Visual changes, Tinnitus, Hearing loss Psychiatric: Denies: Anxiety, Depression, Homicidal Ideations, Suicidal Ideations Vital Signs Height 5 ft 4 in Weight: 69.853 kg Weight in Pounds 154.0 lbs BMI 26.2 Pulse Ox 96 - Physical Exam General: Alert, Oriented x3, No apparent distress Breast:: - - L breast scar healed. Laboratory Data: Laboratory Tests WBC 6.2 (4.4-11.0) K/mm3 RBC 4.68 (4.2-5.4) M/mm3 Hgb 13.8 (12.0-15.0) g/dl Pathology Data: 09/18/2017 Oncotype DX recurrence score 28-intermediate score. Assessment and Plan Left breast cancer stage IA(pT1 pN0 M0) ER positive, ND positive, Her2 negative. S/P lumpectomy and sentinel node L Axillary dissection. Node negative, margins negative. Oncotype DX score is 28- intermediate score. Osteoporosis. S/P bilateral oophorectomy and hysterectomy. Discussed adjuvant therapy with chemotherapy, hormonal therapy, Radiation therapy. Chemotherapy and/or hormonal therapy. Pt wants hormonal therapy. Because of osteoporosis, will recommend Tamoxifen. Plan is to proceed with Radiation Oncology Consult. Will start Tamoxifen after adjuvant Radiation therapy. RTC 6 wks with CBC/CMP. Medications: Prescriptions This Visit Medication Instructions Recorded Ibuprofen/Famotidine [Duexis 800 mg PO DAILY PRN 10/16/17 800-26.6 mg Tablet] Primary Care Provider: Candi Patel Referring Provider: Kumar Esparza, - Problem List (1) Osteoporosis Status: Chronic (2) Breast cancer of upper-inner quadrant of left female breast Status: Chronic Qualifiers: Estrogen receptor status: positive Qualified Code(s): C50.212 - Malignant neoplasm of upper-inner quadrant of left female breast; Z17.0 - Estrogen receptor positive status [ER+] Code Visit Office Visits / Consults: [id number] OV L4 Est 11/10/17 1729 <Electronically signed by Erlin Lorenzo MD> Date Erlin Lorenzo MD Cosigner Signature: Date (if applicable) CC: CBC W/DIFF, AUTOMATED Collected: 11/05/2017 Status: F Source: [place] 8:55 AM [facility] [place] [facility] Order Comment: Reason for Laboratory Test . TYPE CODE TESTS RESULT OUT OF RANGE REFERENCE UNITS LAB L100.1000 4.4-11.0 K/mm3 Normal WBC 6.2 LAB L100.1200 4.2-5.4 M/mm3 Normal RBC 4.68 LAB L100.1300 12.0-15.0 g/dl Normal HGB 13.8 LAB L100.1400 37-47 % Normal HCT 42.3 LAB L100.1500 81-99 fL Normal MCV 90.4 LAB L100.1600 27.0-32.0 pg Normal MCH 29.5 LAB L100.1700 32-36 g/gl Normal MCHC 32.6 LAB L100.1810 11.6-14.6 % Normal RDW CV 14.2 LAB L100.1820 35.1-43.9 fl High RDW SD 46.9 LAB L100.1900 150-450 K/mm3 Normal PLT 188 LAB L100.2000 6.2-12.0 fl Normal MPV 10.4 LAB L100.2100 47-70 % High NEUT% 77.5 LAB L100.2200 19-41 % Low LY% 16.5 LAB L100.2300 0-10 % Normal MONO% 5.8 LAB L100.2400 0-5 % Normal EO% 0.0 LAB L100.2500 0-1 % Normal BASO% 0.0 LAB L100.2550 0.0-0.9 % Normal IM GRAN % 0.200 Result Comment: IG% - Immature Granulocytes (promyelocytes, myelocytes and metamyelocytes) > 1% indicates that a LEFT SHIFT is Present. LAB L100.2620 2.0-7.7 X10 3/uL Normal Absolute Neut 4.8 LAB L100.2720 0.83-4.51 X10 3/ul Normal Absolute Lymph 1.03 Performed By: #### L100.0100 #### [facility]. [place], [place], [address] COMPREHENSIVE METABOLIC Collected: 11/05/2017 Status: F Source: [facility] 8:55 AM [facility] [place] [facility] Order Comment: Reason for Laboratory Test . TYPE CODE TESTS RESULT OUT OF RANGE REFERENCE UNITS LAB L501.0100 74-106 mg/dL High GLU 112 Result Comment: Fasting Glucose result from 100 to 125 mg/dL suggests IMPAIRED HOMEOSTASIS per A.D.A. criteria. Please note revised GLUCOSE reference range effective 2017. LAB L501.1000 7-18 mg/dL Normal BUN 9 LAB L501.1100 0.55-1.02 mg/dL Normal CREAT,SERUM 0.74 Result Comment: The validity of the calculated GFR AND GFRAA in patients over 70 years has not been determined. Clinical correlation is essential. LAB L501.1110 >60 mL/min Normal EST GFR 85 Result Comment: Non- GFR Calc LAB L501.1115 >60 mL/min Normal EST GFR - AA 102 Result Comment: GFR Calc LAB L501.1255 ml/min Normal Estimated CRCL 70.68 LAB L501.1300 10-20 RATIO Normal BUN/CRE 12.1 LAB L501.1500 6.4-8. g/dL Normal 2 T PROT 7.0 LAB L501.1800 3.2-5. g/dL Normal 0 ALB 3.8 LAB L501.1950 2.2-4. g/dL Normal 2 GLOB 3.2 LAB L501.2000 0.9-2. RATIO Normal 4 A/G 1.2 LAB L501.2200 8.5-10 mg/dL Normal .1 CA 8.8 LAB L501.4100 15-37 U/L Normal AST 20 LAB L501.4305 45-117 U/L High ALK P 134 LAB L501.4405 13-56 U/L Normal ALT 29 LAB L501.4600 0.20-1 mg/dL Normal .00 T BILI 0.50 LAB L501.5300 136-14 mmol/L Normal 5 NA 145 LAB L501.5600 3.5-5. mmol/L Normal 1 K 3.9 LAB L501.5900 98-107 mmol/L High CL 109 LAB L501.6100 21.0-3 mmol/L Normal 2.0 CO2 28.0 LAB L501.6200 5-15 Normal GAP 8 Performed By: #### L500.4050 #### [facility] [address] [place], [address] ONCOLOGY CONSULTATION Observed: 10/17/2017 Status: F Source: [place] 11:27 AM [facility] [place] [facility] [address] [facility] [place] [address] Oncology Consultation Date of Service: 10/16/17 1134 MR#: [id number] Acct: [id number] Name: CELINA URBINA Rep #: [id number] : 1960 From: Erlin Lorenzo MD Age/Sex: 57/F Location: OMD Status: Signed Consult Referring Physician: Dr. Kumar Esparza. Consult Results: Left Breast cancer. Subjective Date of Service:: 10/16/17 Chief Complaint: Referred for further management of Left breast cancer. History of Present Illness: 57y.o.woman presented with abnormal mammogram on 08/21/2017 which a 1 x 1 cm spiculated nodule in the left breast. US of left breast on 08/27/2017 showed 8 mm irregular nodular hypoechoic density at the 12 o'clock position in the left breast about 4 cm from the nipple which corresponds to the area of mammographic abnormality, BI-RADS Category 5. Ultrasound-guided core biopsy was done on 09/03/2017, pathology showed invasive ductal carcinoma, grade 2, (ER >95%, ND 6%, Her2 0 IHC) with focal DCIS. She went on to have left breast lumpectomy and sentinel lymph node biopsy on 09/18/2017. Pathology demonstrated a 10mm grade 3 invasive ductal carcinoma, margins negative (closest margin is 5 mm posterior), grade 3, focal DCIS is present, one sentinel lymph node was recovered and negative for disease involvement, pT1b N0 (sn) Mx. She is now referred for further management. She feels well, wound has healed well, moving the Left arm with no pain. Power of Detailer: No Living Will: No Health History: Past Medical History Cancer: Breast cancer Past Medical History (Last Reviewed 10/16/17 @ 10:25 by Letty Trimble RN) Anxiety (Acute) Sleep disorder (Acute) Hypertension (Chronic) Mitral valve prolapse (Acute) Asthma (Acute) Arthritis of knee (Acute) Osteoarthritis (Acute) Abnormal mammogram (Acute) Breast cancer, left (Acute) Past Surgical History (Last Reviewed 10/16/17 @ 10:26 by Letty Trimble RN) History of lumpectomy of both breasts (Acute) History of bilateral knee replacement (Acute) Hx of right breast biopsy (Acute) Hx of left breast biopsy (Acute) Hx of hysterectomy (Acute) Hx of bilateral oophorectomy (Acute) 2004 History of lumpectomy (Acute) Family History (Last Reviewed 10/16/17 @ 10:26 by Letty Trimble RN) Mother Hypertension Thyroid disorder Father Cancer of kidney Heart disease Allergies/Adverse Reactions: Allergy/AdvReac Type Severity Reaction Status Date / Time orange juice [Franklin Juice] AdvReac Nausea/Vom/ Verified 10/16/17 10:27 Review of Systems Constitutional:: Denies: Fever, Sweats, Weight loss, Appetite change, Chills Cardiovascular:: Denies: Chest pain, Palpitations, Dyspnea on exertion, Orthopnea, PND, Shortness of breath Respiratory: Denies: Cough, Hemoptysis, Shortness of Breath, Wheezing Gastrointestinal:: Denies: Abdominal pain, Nausea, Vomiting, Diarrhea, Constipation, Hematochezia Genitourinary: Denies: Dysuria, Hematuria, 15, Flank pain Musculoskeletal:: Denies: Back pain, Myalgia, Arthralgia Skin: Denies: Rash, Skin Changes, Wounds Neurological:: Denies: Headache, Dizziness, Visual changes, Tinnitus, Hearing loss Psychiatric: Denies: Anxiety, Depression, Homicidal Ideations, Suicidal Ideations Vital Signs Height 5 ft 4 in Weight: 69.4 kg Weight in Pounds 153.0 lbs BMI 26.2 Pulse Ox 96 - Physical Exam General: Alert, Oriented x3, No apparent distress HEENT: Atraumatic, PERRLA, EOMI, Normocephalic Oropharynx:: Dry mucosa Neck:: Supple, Trachea midline. Negative for: JVD, bilateral Cardiac:: Regular rate, Regular rhythm, Normal S1, Normal S2. Negative for: Murmur Lungs: Clear to auscultation, Excusion symmetrical. Negative for: Rhonchi, Wheezes Abdomen:: Bowel sounds x 4, Soft, Non-tender, Non-distended. Negative for: Hepatosplenomegaly Extremities:: Negative for: Cyanosis, Edema Neurological: Neuro grossly intact Skin:: Negative for: Lesions, Rash, Petechiae, Ecchymosis Psychiatric:: Appropriate affect, Euthymic Lymphatics:: Negative for: Cervical lymphadenopathy, Supraclavicular lymphadenopathy, Axillary lymphadenopathy Breast:: - - Deferred. Diagnostic Data: 08/21/2017 Bone density on Lumbar spine and hips reviewed, shows osteoporosis. Assessment and Plan Left breast cancer stage IA(pT1 pN0 M0) ER positive, ND positive, Her2 negative. S/P lumpectomy and sentinel node L Axillary dissection. Node negative, margins negative. Osteoporosis. Discussed adjuvant therapy with chemotherapy, hormonal therapy, Radiation therapy. Chemotherapy and/or hormonal therapy depends recurrence score on Oncotype DX. Plan is to obtain Oncotype DX to help guide therapy. To proceed with Radiation Oncology Consult. RTC 2 wks with CBC/CMP. Medications: Prescriptions This Visit Medication Instructions Recorded Ibuprofen/Famotidine [Duexis 800 mg PO DAILY PRN 10/16/17 800-26.6 mg Tablet] Primary Care Provider: Candi Patel Referring Provider: Kumar Esparza, - Problem List (1) Osteoporosis Status: Chronic (2) Breast cancer of upper-inner quadrant of left female breast Status: Chronic Qualifiers: Estrogen receptor status: positive Qualified Code(s): C50.212 - Malignant neoplasm of upper-inner quadrant of left female breast; Z17.0 - Estrogen receptor positive status [ER+] Code Visit Office Visits / Consults: [id number] OP Consult L5 10/17/17 1127 <Electronically signed by Erlin Lorenzo MD> Date Erlin Lorenzo MD Cosigner Signature: Date (if applicable) CC: Kumar Esparza MD; Candi Patel DO; Roman Sargent DO CONSULTATION Observed: 10/16/2017 Status: F Source: [place] 12:20 PM [facility] [place] [facility] Medical Records Department [address] [place] [id number] Consultation 10/16/17 1206 MR#: [id number] Acct: [id number] Name: CELINA URBINA Rep #: [id number] : 1960 57 From: Roman Sargent DO PCP: Candi Patel DO Status: REG RCR Y Location: [facility] Date of Service: 10/16/17 Referring Provider: Dr. Kumar Esparza. Diagnosis: Celina Urbina is a 57-year-old female diagnosed with pathologic stage I (pT1b pN0 (sn) Mx) grade 3 invasive ductal carcinoma (ER >95%, ND 6%, Her2 0 IHC) of the left breast (12 o clock) s/p lumpectomy and SLNBx (09/18/17). History of Present Illness: 08/21/2017: Patient completed bilateral screening mammography which demonstrated evidence of a 1 x 1 cm spiculated nodule in the upper deep midportion of the left breast. Correlation with ultrasound is recommended, BI-RADS Category 0. 08/27/2017: Left breast ultrasound was performed which demonstrated a 7 x 8 x 7 mm irregular nodular hypoechoic density at the 12 o'clock position in the left breast about 4 cm from the nipple which corresponds to the area of mammographic abnormality, BI-RADS Category 5. 09/03/2017: Ultrasound-guided core biopsy left breast was performed and pathology demonstrated grade 2 invasive ductal carcinoma (ER >95%, ND 6%, Her2 0 IHC) with focal DCIS. 09/18/2017: Patient underwent left breast lumpectomy and sentinel lymph node biopsy. Pathology demonstrated a 1 x 1 x 1 cm grade 3 invasive ductal carcinoma, LVSI not identified, margins negative (closest margin is 5 mm posterior), grade 3 focal DCIS is present, one sentinel lymph node was recovered and negative for disease involvement, pT1b N0 (sn) Mx. Radiation Treatment History: None. No pacemaker or diagnosis of collagen vascular disease. Interval History: Patient presents for initial consultation. She reports that she was completing screening mammograms regularly and had absolutely no symptoms prior to finding the breast cancer. It had been 18 months since her previous screening mammography as she had a bilateral knee replacement which delayed the next screening mammogram. She reports healing well since completing surgery about 4 weeks ago. She denies having any swelling in her breast or arm, difficulties with wound healing/dehiscence, pain, or reduced arm range of motion. She denies headaches, ataxia, vision changes, bone pain, unexpected weight loss, or fatigue. She works part-time and continues working at this time. She has no difficulty completing activities of daily living. She denies having any other problems or concerns at this time. Family History (Last Reviewed 10/16/17 @ 10:26 by Letty Trimble RN) Mother Hypertension Thyroid disorder Father Cancer of kidney Heart disease Medical History (Last Reviewed 10/16/17 @ 10:25 by Letty Trimble RN) Anxiety (Acute) Sleep disorder (Acute) Hypertension (Chronic) Mitral valve prolapse (Acute) Asthma (Acute) Arthritis of knee (Acute) Osteoarthritis (Acute) Abnormal mammogram (Acute) Breast cancer, left (Acute) Surgical History (Last Reviewed 10/16/17 @ 10:26 by Letty Trimble RN) History of lumpectomy of both breasts (Acute) Left breast X2- 1996. Right breast- 1996 History of bilateral knee replacement (Acute) 12/2016 Hx of right breast biopsy (Acute) failed stero Hx of left breast biopsy (Acute) ? Hx of hysterectomy (Acute) Hx of bilateral oophorectomy (Acute) History of lumpectomy (Acute) 2017 with SLN BX Gynecological History Age at first period: 10 Do you have regular sales operations director No examinations and PAP smears? Hx Control Yes Hx Hormone Therapy No Obstetrical History Number of pregnancies: 1 Number of children: 1 Have you ever breastfed in the Yes past? Breast Health Monthly breast self-exams Yes performed? Do you have regular clinical Yes breast examinations? Date of last mammogram: 08/21/17 Have you ever had an abnormal Yes, has had benign cysts removed in early . No previous malignancy. mammogram? Social History - Tobacco Smoking Status Never smoker Social History - Substance Drug use: No Caffeine use [drinks/day]: 1 Alcohol use: Yes Type of alcohol: wine beer Social History - Living Arrangements Patients Living Arrangements With Significant Other Home Medications Medication Instructions Recorded Amitriptyline HCl [Elavil] 12.5 mg PO QHS PRN 01/18/13 albuterol sulfate HFA 90 2 puff INHALATION Q6H PRN 09/03/17 mcg/actuation aerosol inhaler Allergy/AdvReac Type Severity Reaction Status Date / Time orange juice [Franklin Juice] AdvReac Nausea/Vom/ Verified 10/16/17 10:27 Health Maintenance Do you regularly see your Yes primary care physician? Have you ever had a Yes colonoscopy? Date of last colonoscopy: 03/10/14 I have reviewed the medical, surgical, and other pertinent history in details and have updated medication and allergy information in the electronic medical record. Review of Systems: A 12-point review of systems was completed and was negative except for what is noted in the HPI/Interval History and by the nurse. Height/Weight/BMI: Height: 5 ft 4 in Weight: 69.4 kg BMI: 26.2 Vital Signs Temperature 98.1 F 10/16/17 10:28 Temperature Source Oral 10/16/17 10:28 Pulse Rate 98 10/16/17 10:28 Physical Exam: ECO KARNOFSKY SCORE: 100% CONSTITUTIONAL: Well-developed, well-nourished, and in no apparent distress. HEENT: Mucous membranes moist. No evidence of thrush or lesions within the visualized oropharynx or oral cavity. No trismus. Pupils are equal, round, and reactive to light and accommodation. Extraocular movements are intact. Sclerae are anicteric. NECK: Supple,with no thyromegaly, and non-tender. Trachea midline. No cervical or supraclavicular adenopathy noted. CARDIAC: Regular rate and rhythm. Normal S1, S2. No murmurs, rubs, or gallops. PULMONARY/CHEST: Lungs are clear to auscultation and percussion bilaterally. No wheezes, rhonchi, or crackles noted. No increased work of breathing. BREAST: Bilateral breasts were examined in the seated and supine position. Breasts appear symmetric. Within the left breast upper slightly medial aspect there is a 3-4 cm well-healed lumpectomy scar with scar tissue noted beneath and there is also a 3-4 cm left axillary scar that is well-healed. There are no palpable lesions within either breast or axilla. ABDOMINAL: Abdomen soft, non-tender, non-distended. No hepatomegaly. Normoactive bowel sounds in all four quadrants. No guarding, rebound. BACK: Straight and aligned. No CVA tenderness. Axial skeleton non-tender to percussion. EXTREMITIES: Full range of motion in all four extremities, with normal strength equally and symmetrically. No evidence of edema. No clubbing. Imaging: As per HPI Laboratory Data: No new labs to review Assessment: Celina Urbina is a 57-year-old female diagnosed with pathologic stage I (pT1b pN0 (sn) Mx) grade 3 invasive ductal carcinoma (ER >95%, ND 6%, Her2 0 IHC) of the left breast (12 o clock) s/p lumpectomy and SLNBx (09/18/17). Plan: I had a detailed discussion with the patient regarding the diagnosis and management of early stage invasive breast cancer. She will complete Oncotype DX to determine what her benefit from adjuvant systemic therapy will be. I discussed that if adjuvant systemic therapy is needed that we will complete radiation therapy following this treatment and that if she has low or intermediate Oncotype score then likely we will proceed with initial radiation therapy and forego systemic therapy. I discussed that adjuvant radiation therapy to the whole breast has been demonstrated in multiple randomized trials to improve local regional control and potentially even improve overall survival for early stage breast cancer. I also reviewed the trials demonstrating potential omission of radiation therapy and selected elderly patients with low risk disease, but reviewed that she does not fit into this cohort given her age and health. I recommend that we pursue hypo-fractionated radiation therapy to the whole breast followed by a boost to the lumpectomy cavity given her age and that she has high-grade disease. I explained what a course of breast radiation entails. Radiation proceeds over several week times and is delivered Friday through Friday, 5 days per week. The process for planning a radiation course including the need for CT simulation, placement of tattoos, generation of a virtual 3D conformal radiation therapy plan from the acquired CT images, and the need for verification of the computer generated plan prior to beginning treatment was explained. I discussed the rationale, risks and benefits of radiation therapy with the patient. The acute risks include, but are not limited to: Fatigue, skin irritation including desquamation particularly along skin folds, breast pain or discomfort, and breast swelling. The long-term risks include, but are not limited to: residual hyperpigmentation or hypopigmentation (10%); skin telangectasias; radiation pneumonitis (<0.5%); lung scarring/fibrosis; breast fibrosis and change in breast contour with a 15-20% risk of poor cosmetic outcome; radiation-induced heart disease, particularly for left-sided breast cancers; shoulder stiffness or reduced ROM; lymphedema (1-2% increased risk above surgical risk); rib fracture (<1%); remote-risk of radiation-induced malignancy. To minimize cardiac dose and potentially future cardiac toxicity, I will attempt prone positioning and DIBH if supine positioning is needed. At the end of the discussion, the patient had many questions all of which were thoroughly answered. She is planning to return to review the Oncotype score on 11/03/2017 and I will have her return for CT simulation on 11/06/2017 assuming that she is not going to receive chemotherapy. She will then be on vacation the following week and we will initiate therapy during the second week of November which will be just over 8 weeks after surgery. Thank you for allowing me to participate in the management and care of your patient. If I may answer any questions in the interim, please do not hesitate to contact me at any time. Roman Sargent DO, MS Pediatric Ophthalmologist, Department of Radiation Oncology [facility] 10/16/17 1220 <Electronically signed by Roman Sargent DO> Date Roman Sargent DO Cosigner Signature (if applicable): Date CC: Kumar Esparza MD; Erlin Lorenzo MD; Candi Patel DO; Roman Sargent DO Signed SURGERY VISIT REPORT Observed: 10/06/2017 Status: F Source: [place] 4:02 PM [facility] [address] [place] [address] [address] [place] [address] OFFICE VISIT Date of Service: 10/06/17 MR#: [id number] Acct: [id number] Name: CELINA URBINA Rep #: [id number] : 1960 Provider: Kumar Esparza MD Age/Sex: 57/F Location: [facility] Status: Signed Intake Intake Visit Reasons: 2 WK F/U L Lumpectomy TC Quality Cloth Tester Required: No Is patient in pain?: No Allergies orange juice [Franklin Juice] Adverse Reaction (Verified 10/06/17 08:33) Nausea/Vom/Diarrhea Medications Amitriptyline HCl [Elavil] 12.5 mg PO QHS PRN 01/18/13 [History Confirmed 10/06/17] albuterol sulfate HFA 90 mcg/actuation aerosol inhaler 2 puff INHALATION Q6H PRN 09/03/17 [History Confirmed 10/06/17] lorazepam 0.5 mg tablet 0.5 mg PO Q8H PRN tab 09/03/17 [History Confirmed 10/06/17] nebivolol 5 mg tablet 5 mg PO QDAY 09/03/17 [History Confirmed 10/06/17] Oxycodone HCl/Acetaminophen [Percocet 5/325] 1 - 2 tab PO Q4H PRN PRN 7 Days #40 tab 09/18/17 [Rx Confirmed 10/06/17] PFSH Medical History Anxiety (Acute) Sleep disorder (Acute) Hypertension (Chronic) Mitral valve prolapse (Acute) Asthma (Acute) Arthritis of knee (Acute) Osteoarthritis (Acute) Abnormal mammogram (Acute) Breast cancer, left (Acute) Surgical History History of lumpectomy of both breasts (Acute) History of bilateral knee replacement (Acute) Hx of right breast biopsy (Acute) Hx of left breast biopsy (Acute) Hx of hysterectomy (Acute) Hx of bilateral oophorectomy (Acute) History of lumpectomy (Acute) Family History Mother Hypertension Thyroid disorder Father Cancer of kidney Heart disease Social History Smoking Status: Never smoker second hand exposure: No alcohol intake: current alcohol intake frequency: holidays/special occasions only substance use type: does not use caffeine: Yes what type of physical activity do you participate in: walking, bicycling, weight training frequency: 1-2 times per week seatbelt use: always HPI HPI HPI: CELINA URBINA, is a 57 F who presents to the office today for follow-up after left partial mastectomy and sentinel lymph node biopsy. The patient is doing well and she is not having any pain. She is having no discharge from her wound.l ROS General General: No weight change or fatigue Breast Additional Details: Patient's left breast is healing well with no complaints Exam Const General: cooperative Orientation: alert, oriented x3 Chest Other: Her left breast and axillary incisions are clean dry and intact with no drainage or fluctuance. There is no erythema or swelling Assessment AND Plan Problems 1. Malignant neoplasm of upper-inner quadrant of left breast in female, estrogen receptor positive C50.212 Plan 1. Patient is status post left partial mastectomy and sentinel lymph node biopsy. She is doing well after her surgery. She reports no issues at this time. 2. She has an appointment coming up with Dr. Sargent to discuss radiation therapy. I also referred her to medical oncology for hormonal treatment and decision on Oncotype DX. 3. The patient will return to me if she is having any issues or if she requires a port to be placed for possible chemotherapy. Kumar Esparza MD Pager: [facility] [address] [place] [address], [address] [place] [address] Office: Coding Level of Care Code Global Post Op Diagnoses Malignant neoplasm of upper-inner quadrant of left breast in female, estrogen receptor positive C50.212 Estrogen receptor status: positive 10/06/17 1602 <Electronically signed by Kumar Esparza MD> Date Kumar Esparza MD Cosigner Signature: Date (if applicable) CC: Candi Patel DO; Roman Sargent DO DISCHARGE INSTRUCTION Observed: 09/18/2017 Status: F Source: [place] 12:49 PM [facility] [place] [facility] Medical Records Department [address] [place] [address] Instructions for Home/Discharge Instructions 09/18/17 1248 MR#: [id number] Acct: [id number] Name: CIARACELINA Annette Rep #: [id number] : 1960 57 From: Kumar Esparza MD PCP: Candi Patel DO Status: REG [facility] Discharge Diet: No Restrictions Discharge Activity: May Not Drive - for 2-3 days or while taking narcotic pain meds. May shower in (days): 1 Lifting Restrictions: 10 pounds for 1 week. Call your doctor if your incision/area has: Continuous Slow Oozing, Sudden Increased Bleeding, Increased Pain/ Swelling, Increased Redness, Foul Smelling Discharge, Swelling at the incision site Call your doctor if you observe: Fever of 101 or Higher Suture Line Care: Avoid Pulling/Pushing, Avoid Pinching/Bending Allergies/Adverse Reactions: Allergies orange juice [Franklin Juice] Adverse Reaction (Verified 09/16/17 13:13) Nausea/Vom/Diarrhea Medications to take at Discharge Amitriptyline HCl [Elavil] 12.5 mg PO QHS PRN 01/18/13 albuterol sulfate HFA 90 mcg/actuation aerosol inhaler 2 puff INHALATION Q6H PRN 09/03/17 lorazepam 0.5 mg tablet 0.5 mg PO Q8H PRN tab 09/03/17 nebivolol 5 mg tablet 5 mg PO QDAY 09/03/17 Oxycodone HCl/Acetaminophen [Percocet 5/325] 1 - 2 tab PO Q4H PRN PRN 7 Days #40 tab 09/18/17 The following prescriptions were given: Oxycodone HCl/Acetaminophen [Percocet 5/325] 1 - 2 tab PO Q4H PRN PRN 7 Days #40 tab PRN Reason: Pain Primary Care Physician: Candi Patel DO [Primary Care Provider] - Please Follow Up With: Kumar Esparza MD When: Please call to schedule 2 week follow up appointment. [phone] 09/18/17 1249 <Electronically signed by Kumar Esparza MD> Date Kumar Esparza MD CC: Candi Patel DO OPERATIVE REPORT Observed: 09/18/2017 Status: F Source: [place] 12:45 PM [facility] [place] [facility] Medical Records Department [address] [place] [address] Operative Report 09/18/17 1238 MR#: [id number] Acct: [id number] Name: CELINA URBINA Rep #: [id number] : 1960 57 From: Kumar Esparza MD PCP: Candi Patel DO Status: REG [facility] Y Location: [place] [address] Problem List (1) Breast cancer of upper-inner quadrant of left female breast Status: Acute Qualifiers: Estrogen receptor status: positive Qualified Code(s): C50.212 - Malignant neoplasm of upper-inner quadrant of left female breast; Z17.0 - Estrogen receptor positive status [ER+] Report of Operation Date of Procedure: 09/18/17 Pre-Operative Diagnosis: Left breast cancer estrogen receptor positive Post-Operative Diagnosis: Same Surgery/Procedure Performed:: 1. Ultrasound guidance wire localization. 2. Injection blue dye. 3. Left partial mastectomy. 4. Left sentinel lymph node biopsy with neoprobe guidance Special Medications: Isosulfan blue dye Specimen's removed: 1. Left axillary sentinel lymph node. 2. Left partial mastectomy Description of Procedure: The patient was sent for nuclear tracer injection before surgery. She was brought to the operating room and general anesthesia was induced. Next an ultrasound was used to locate the breast mass and a Kopan's wire was placed into the mass. Next 5 mL of isosulfan blue were injected in the subareolar space in 4 quadrants. The breast was then massaged for 5 full minutes. Next the left breast was prepped and draped in usual sterile fashion. The left axillary hairline was located and a curvilinear incision was made in the skin and deepened to the axillary fascia. The axillary fascia was opened and using the neoprobe to guide dissection was completed until blue node was identified. This was dissected free using clips and hemostats until the lymph node was removed. A 10 second count was performed outside of the body and this was 234. This was sent for pathology. The neoprobe was placed back in the axilla and nothing appeared to have a count higher than 23. The axilla was further inspected there were no further blue lymph nodes and the axilla was palpated and there were no palpable lymph nodes. The axilla was packed with wet Ray-Anastacia and attention was paid to the left breast mass. The patient's prior lumpectomy incision was incised around and excised with the specimen. Once the incision was made the skin was elevated and flaps were created. Dissection was carried down to the pectoral fascia in all directions around the wire and the dissection was carried all the way the pectoral fascia including the fascia. The specimen along with the wire was removed and sent for mammogram and then pathology. The mammogram of the specimen revealed that the entire wire and clip with the mass were included. Pathology called the room and notified us that our sentinel lymph node was negative and that the mass had good margins of at least half a centimeter. Next the axilla was irrigated and suctioned dry and check for hemostasis and hemostasis was good. The axillary fascia was reapproximated with 3-0 Vicryl suture and the skin was approximated with interrupted 3-0 Vicryl sutures. The incision was then anesthetized with Marcaine and closed with a running 4-0 Monocryl suture. Dermabond was then applied. The breast cavity was irrigated and suctioned dry check for hemostasis and hemostasis was obtained with electrocautery. Some of the deep breast tissue was reapproximated with interrupted 3-0 Vicryl sutures. The incision was then anesthetized with Marcaine and closed with interrupted 3-0 Vicryl sutures, running 4-0 Monocryl, and Dermabond. Padded dressings and a surgical bra were applied and the patient was taken to PACU in stable condition. The patient tolerated the procedure well. - Admit VTE Documentation VTE Mechan Device Prophylaxis: SCD's 09/18/17 1245 <Electronically signed by Kumar Esparza MD> Date Kumar Esparza MD CC: Kumar Esparza MD; Candi Patel DO Signed BREAST BIOPSY Observed: 09/18/2017 Status: F Source: [place] SPECIMEN 12:14 PM [facility] [place] [facility] Imaging Services [address] [place] [address] Breast Biopsy Specimen MR#: [id number] Acct: [id number] Name: CELINA URBINA Annette Rep #: [id number] : 1960 F 57 From: Tye Munoz MD PCP: Candi Patel DO Status: [facility] Study: Breast Biopsy Specimen Date of Exam: 09/18/17 Exam# [id number] Ordering Dr: Kumar Esparza MD SURGICAL BREAST SPECIMEN RADIOGRAPH CLINICAL: Document presence of mass in biopsy specimen. FINDINGS: Specimen shows presence of mass. Electronically Signed: Tye Munoz MD at 12:35 EDT Tel [phone], Service support , BI/Breast Biopsy Specimen CC: Kumar Esparza MD; Candi Patel DO Stock Clipper: Signed LYMPH NODE INJECTION Observed: 09/18/2017 Status: F Source: [place] ONLY 7:09 AM [facility] [place] [facility] Imaging Services [address] [address] Lymph Node Injection Only MR#: [id number] Acct: [id number] Name: CELINA URBINA Rep #: [id number] : 1960 F 57 From: Tye Munoz MD PCP: Candi Patel DO Status: [facility] Study: Lymph Node Injection Only Date of Exam: 09/18/17 Exam# [id number] Ordering Dr: Kumar Esparza MD PROCEDURE: NUCLEAR MEDICINE Injection [place] Node - LEFT breast(s). REASON FOR EXAM: Female, 57 years old. Left breast concert. TECHNIQUE: [place] node localization using radionuclide methods of the LEFT breast(s) was performed following subcutaneous administration administration of 1.1 mCi of of sulfur colloid Tc-99m. FINDINGS: 1.1 mCi of technetium labeled sulfur colloid was injected in 4 equal aliquots at the biopsy site. NM/Lymph Node Injection Only IMPRESSION: Successful injection of 1.1 mCi of technetium labeled sulfur colloid at the biopsy site for sentinel node imaging. Electronically Signed: Tye Munoz MD at 10:16 EDT Tel [phone], Service support , CC: Kumar Esparza MD; Candi Patel DO Stock Clipper: Signed AXILLARY NODE BIOPSY Observed: 09/18/2017 Status: F Source: [place] 12:00 AM [facility] [place] [facility] Patient: CELINA URBINA : 1960 (57/F) Acct Num: [id number] Phys: Isaias MURO,Kumar Unit Num: [id number] Loc: [facility] Specimen: [id number] Received: 09/18/175 Spec Type: AX NODE BX TISSUES TISSUES: A. Axillary lymph node, NOS B. Left breast, NOS ADDENDUM Addendum Number 1 An order for Oncotype testing was received from Dr. Lorenzo. This necessitated case review, block and slide selection by pathologist at [facility]. Breast Cancer Recurrence Score = 28 Results of the complete Oncotype testing (Next Points report) are viewable in EMR under: Reports - Pathology - Lab Pathology Report, Scanned. Addendum Signed [facility] 11/03/17 <signature on file> COMMENT INVASIVE BREAST CANCER SUMMARY: Specimen: Partial breast Procedure: Excision with wire guidance Lymph node sampling: See specimen A Specimen integrity: Single intact specimen Specimen size: 7 x 5.5 x 2 cm Specimen laterality: Left breast Tumor size: 1 x 1 x 1 cm Tumor focality: Single focus of invasive carcinoma Macroscopic and Microscopic extent of tumor: Skin: Free of carcinoma Nipple: Not present Skeletal muscle: Not present Histologic type of invasive carcinoma: invasive ductal carcinoma Histologic Grade ([place] grade): Glandular/tubular differentiation score: 3 Nuclear pleomorphism score: 3 Mitotic count score: 2 Overall grade: Grade 3 (total score of 8) Margins: The margins are NOT involved by invasive carcinoma. Distance from closest margin is 5 mm from closest (posterior) margin Lymph-Vascular invasion: Not identified Dermal lymph-vascular invasion: Not identified Ductal carcinoma in situ (DCIS) - present Estimated size (extent) of DCIS: 1 x 1 x 1 mm Number of blocks with DCIS: 2 out of 10 Architectural patterns: Cribriform. Nuclear grade: 3 Necrosis: Present, focal Lobular carcinoma in situ (LCIS): Not present Lymph nodes: Number of sentinel lymph nodes examined - 1 Total number of lymph nodes examined (sentinel and nonsentinel) - 1 No evidence of macrometastases, micrometastases or isolated tumor cells. Immunohistochemistry ([id number]) performed on the lymph node. Microcalcifications - present in non-neoplastic tissue Treatment effect unknown Additional pathologic findings: Fibrocystic change Ancillary studies: Previously performed on same tumor ([id number] / [id number]). ER: >95%, strong ND: 6%, weak Her2 ajith: 0 (IHC) PATHOLOGIC STAGE: pT1b N0(sn) Mx The above summary is in compliance with [employer] [place] Path[employer] (CAP) Cancer Protocols Checklist and [place] Joint Committee on Cancer (AJCC), Staging Manual, 8th Ed. Case has been reviewed in consultation with Dr. Krishnamurthy who concurs with the above diagnosis. IDC:SJ FROZEN SECTION DIAGNOSIS A. Left axillary sentinel lymph node tissue, biopsy: One lymph node, negative for metastatic carcinoma. :judy 09/18/17 GROSS DESCRIPTION A - Received fresh for frozen section diagnosis labeled with the patient's name is a specimen designated left axillary sentinel lymph node tissue. The specimen consists of a piece of yellow adipose tissue containing a nodule consistent with lymph node measuring 2 x 1.5 x 0.5 cm. The specimen is bisected and submitted entirely for frozen section diagnosis in one cassette. / :judy B - Received fresh for intraoperative consultation labeled with the patient's name is a specimen designated left breast lumpectomy tissue. The specimen consists of a piece of fibroadipose tissue measuring 7 x 5.5 x 2 cm. A piece of skin is also noted anteriorly measuring 3 x 0.5 cm. The specimen is oriented as follows: short stitch superior, long stitch lateral. The specimen is inked as follows: anterior yellow, posterior black, superior blue, inferior green, medial red and lateral orange. Serial sections reveal a tumor mass measuring 1 x 1 x 1 cm and it is 0.5 cm away from the closest posterior margin. This information is conveyed to the surgeon intraoperatively. Sections of the rest of the specimen reveals wayne-yellow adipose cut surfaces mixed with wayne- white fibrous areas. Focal dense fibrous area is noted at the lateral margin measuring 1 cm in greatest dimension. Material Expeditor sections are submitted in 10 cassettes as follows: 1 perpendicular medial and lateral margins, 2 perpendicular anterior margin, inferior margin and skin, 3- 5 entire tumor with closest superior and posterior margin, 6-10 - international account representative sections from the other areas. About 90% of the specimen is submitted. Sections will be submitted after additional fixation. / SJ:judy 09/19/17 TC:0 CPT: 41345, 05116, 27556, 93556 HEADER OPERATION: Ultrasound-guided needle localization in OR; lumpectomy with sentinel lymph node biopsy and Neoprobe radiotracer, left breast PRE-OP DIAGNOSIS: Malignant neoplasm of upper inner quadrant left breast, ER positive TISSUE SUBMITTED: A Left axillary sentinel lymph node tissue to lab FS, B Left breast lumpectomy tissue to mammography, short stitch superior, long stitch - lateral MICROSCOPIC DESCRIPTION Slides are reviewed. MICROSCOPIC DIAGNOSIS A. Left axillary sentinel lymph node tissue, biopsy: One out of one lymph node, negative for carcinoma. B. Left breast, lumpectomy: Invasive ductal carcinoma. See cancer checklist below. AM:judy 09/24/17 Signed Dio Sandy 09/24/17 <signature on file> Performed By: #### PAXNB #### [facility] [address] [place] [address]. [place], [address] IMMUNOHISTOCHEMISTRY Observed: 09/18/2017 Status: F Source: [place] 12:00 AM [facility] [place] [facility] Patient: CELINA URBINA : 1960 (57/F) Acct Num: [id number] Phys: Isaias MURO,Kumar Unit Num: [id number] Loc: [facility] Specimen: [id number] Received: 09/23/17 141 Spec Type: IMMUNO TISSUES TISSUES: A. Axillary lymph node, NOS SPECIMEN INFORMATION: Tissue Source: A Left axillary sentinel lymph node tissue Clinical Info: Malignant neoplasm of upper inner quadrant, left breast, ER positive Specimen Number: [id number] CPT code: 25891, 03727 METHODOLOGY: Deparaffinized sections of prefer/formalin-fixed tissue or PAP/DQ stained slides are incubated with monoclonal/polyclonal antibodies/oligonucleotide probes. Localization is made via biotin free immunoperoxidase method. Appropriate controls are performed and reacted as expected. Results on target cell population are indicated in the following table: RESULTS: ANTIBODY / CLONE RESULT Block A CK7 (OV-TL12/30) negative AE1-3 (AE1/AE3/PCK26) negative These tests were developed and their performance characteristics determined by [facility]. They may not have been cleared or approved by the U.S. Food and Drug Administration. The FDA has determined that such clearance or approval is not necessary. INTERPRETATION: A. Left axillary sentinel lymph node tissue, biopsy: One out of one lymph node negative for carcinoma. AM:judy 09/24/17 PHYSICIAN AND INSTITUTION [place] [address] Signed Dio [facility] 09/24/17 <signature on file> Performed By: #### PIMM #### [facility] [address] [place] [address]. [place], [place], [address] SURGERY VISIT REPORT Observed: 09/12/2017 Status: F Source: [place] 2:45 PM [facility] [address] [place] [address]. [address] [place] [address] OFFICE VISIT Date of Service: 09/11/17 MR#: [id number] Acct: [id number] Name: CELINA URBINA Rep #: [id number] : 1960 Provider: Kumar Esparza MD Age/Sex: 57/F Location: [facility] Status: Signed Intake Intake Visit Reasons: Discuss Breast BX Results Quality Cloth Tester Required: No Is patient in pain?: No Allergies orange juice [Franklin Juice] Adverse Reaction (Verified 09/11/17 10:03) Nausea/Vom/Diarrhea Medications Amitriptyline HCl [Elavil] 12.5 mg PO QHS PRN 01/18/13 [History Confirmed 09/11/17] albuterol sulfate HFA 90 mcg/actuation aerosol inhaler 2 puff INHALATION Q6H PRN 09/03/17 [History Confirmed 09/11/17] lorazepam 0.5 mg tablet 0.5 mg PO Q8H PRN tab 09/03/17 [History Confirmed 09/11/17] nebivolol 5 mg tablet 5 mg PO QDAY 09/03/17 [History Confirmed 09/11/17] PFSH Medical History Anxiety (Acute) Sleep disorder (Acute) Hypertension (Chronic) Mitral valve prolapse (Acute) Asthma (Acute) Arthritis of knee (Acute) Osteoarthritis (Acute) Abnormal mammogram (Acute) Breast cancer, left (Acute) Surgical History History of lumpectomy of both breasts (Acute) History of bilateral knee replacement (Acute) Hx of right breast biopsy (Acute) Hx of left breast biopsy (Acute) Hx of hysterectomy (Acute) Hx of bilateral oophorectomy (Acute) Family History Mother Hypertension Thyroid disorder Father Cancer of kidney Heart disease Social History Smoking Status: Never smoker second hand exposure: No alcohol intake: current alcohol intake frequency: holidays/special occasions only substance use type: does not use caffeine: Yes what type of physical activity do you participate in: walking, bicycling, weight training frequency: 1-2 times per week seatbelt use: always HPI HPI HPI: CELINA URBINA, is a 57 F who presents to the office today for discussion of surgery. Patient was found to have invasive ductal carcinoma of the left breast on core biopsy. ROS General General: No weight change or fatigue Breast Breast: Yes left breast lump, abnormal mammogram and abnormal US Psych Psychiatric: Yes anxiety; no depression Resp Respiratory: No shortness of breath, No sleep apnea Gastro Gastrointestinal: No abdominal pain, No nausea or vomiting Exam Chest Other: Left breast has some bruising but there is no swelling or signs of infection. Resp Effort AND Inspection: normal respiratory effort Auscultation: clear to auscultation bilaterally Cardio Rate: regular rate Rhythm: regular rhythm GI Inspection: normal to inspection Palpation: soft Assessment AND Plan Problems 1. Malignant neoplasm of upper-inner quadrant of left breast in female, estrogen receptor positive C50.212; Z17.0 Plan 1. The patient was found to have left breast carcinoma on needle core biopsy. I had her come back into the office to discuss definitive surgical management. All questions about her cancer were answered and the patient is comfortable with the diagnosis. 2. I discussed mastectomy with the patient. I discussed that reconstruction would also be possible. I also discussed contralateral prophylactic mastectomy with reconstruction if desired. 3. I discussed lumpectomy versus mastectomy with the patient in detail. The patient has had a history of partial mastectomy of the left breast but this was found to be noncancerous. She has never had radiation of the left breast. The tumor is just superior to the former incision. I explained that performing a another partial mastectomy on the same breast may deform her breast. 4. I also discussed sentinel lymph node biopsy and possible axillary dissection I discussed that I would be injecting blue dye and using radioisotope to find the sentinel lymph node and making a small incision in her axilla. If over 2 nodes were found to be positive or she had extranodal extension she would be a candidate for axillary dissection. Otherwise if there are small micrometastasis in less than 2 nodes she would be a candidate for radiation of the axilla if she is already having a lumpectomy. 5. At this time the patient wishes to pursue a needle localized partial mastectomy on the left with sentinel lymph node biopsy possibly axillary dissection. The patient understands the risks of bleeding, infection, breast distortion, axillary nerve damage, lymphedema, skin necrosis and need to possibly return to the operating room for margins if they are positive. The patient wishes to proceed with surgery as soon as possible. 6. I will also make referrals to medical oncology as well as radiation oncology. Over 45 minutes were spent with patient and all this time was spent in counseling. Kumar Esparza MD Pager: [facility] [address] [place] [address], [address] [place] [address] Office: Orders Referrals: Coding Level of Care Code Off vis,est,level 4 Diagnoses Malignant neoplasm of upper-inner quadrant of left breast in female, estrogen receptor positive C50.212; Z17.0 Breast location: upper inner quadrant of breast Estrogen receptor status: positive Patient sex: female Time Spent (min) 45 09/12/17 1445 <Electronically signed by Kumar Esparza MD> Date Kumar Esparza MD Cosigner Signature: Date (if applicable) CC: Candi Patel DO SURGERY VISIT REPORT Observed: 09/03/2017 Status: F Source: [place] 9:52 AM [facility] [address] [place] [address] [address] [place] [address] OFFICE VISIT Date of Service: 09/03/17 MR#: [id number] Acct: [id number] Name: CELINA URBINA Rep #: [id number] : 1960 Provider: Kumar Esparza MD Age/Sex: 57/F Location: [facility] Status: Signed Intake Vital Signs09/03/17 Height 5 ft 4 in 09/03/17 Weight: 152 lb Intake Visit Reasons: Abnormal mammo/ US L Breast BIRADS V Quality Cloth Tester Required: No Accompanied by: Is patient in pain?: No Allergies orange juice [Franklin Juice] Adverse Reaction (Verified 09/03/17 09:32) Nausea/Vom/Diarrhea Medications Amitriptyline HCl [Elavil] 12.5 mg PO QHS PRN 01/18/13 [History Confirmed 09/03/17] albuterol sulfate HFA 90 mcg/actuation aerosol inhaler 2 puff INHALATION Q6H PRN 09/03/17 [History Confirmed 09/03/17] lorazepam 0.5 mg tablet 0.5 mg PO Q8H PRN tab 09/03/17 [History Confirmed 09/03/17] nebivolol 5 mg tablet 5 mg PO QDAY 09/03/17 [History Confirmed 09/03/17] PFSH Medical History Anxiety (Acute) Sleep disorder (Acute) Hypertension (Chronic) Mitral valve prolapse (Acute) Asthma (Acute) Arthritis of knee (Acute) Osteoarthritis (Acute) Abnormal mammogram (Acute) Surgical History History of lumpectomy of both breasts (Acute) History of bilateral knee replacement (Acute) Hx of right breast biopsy (Acute) Hx of left breast biopsy (Acute) Hx of hysterectomy (Acute) Hx of bilateral oophorectomy (Acute) Family History Mother Hypertension Thyroid disorder Father Cancer of kidney Heart disease Social History Smoking Status: Never smoker second hand exposure: No alcohol intake: current alcohol intake frequency: holidays/special occasions only substance use type: does not use caffeine: Yes what type of physical activity do you participate in: walking, bicycling, weight training frequency: 1-2 times per week seatbelt use: always HPI HPI HPI: CELINA URBINA, is a 57 F who presents to the office today for left breast mass. The patient was having a routine mammogram which showed a left breast mass and a subsequent ultrasound showed a 7 x 8 mm spiculated mass in the left breast at the 12 o'clock position. She reports this mass is nonpalpable and she has been having no issues. She has a history of several breast biopsies as well as lumpectomies in both breasts. She reports that all these have been benign and she has no family or personal history of breast cancer. She is not having any nipple discharge or breast pain at this time. She has no masses in her axilla. ROS General General: No weight change, appetite, fatigue, colon cancer, breast cancer or weakness HEENT HEENT: No difficulty swallowing, eye injury, eye surgery, swollen glands or hoarseness Breast Breast: Yes left breast lump, abnormal mammogram and abnormal US; no nipple discharge, breast pain or breast enlargement Musc Musculoskeletal: Yes arthritis Cardio Cardiovascular: Yes high blood pressure; no murmur, pacemaker, heart disease, atrial fibrillation, heart attack, heart stent, palpitations, shortness of breat with exertion or chest pain Psych Psychiatric: No depression or anxiety Resp Respiratory: No shortness of breath, No sleep apnea, No cough, No COPD, Yes asthma, No emphysema Gastro Gastrointestinal: No abdominal pain, No nausea or vomiting, No diarrhea, No constipation, No blood in stool, No acid reflux, No hemorrhoids, No ulcers, No gallbladder problem, No black,tarry stools Gera Hematologic: No blood thinners, No blood disorders, No bleeding, No anemia, No blood clots Neuro Neurologic: No weakness Exam Const General: cooperative Orientation: alert, oriented x3 Chest Chest palpation AND inspection: normal inspection of the chest Breast inspection: normal inspection of the breasts, normal inspection of the axillae Breast Palpation: No nipple discharge Other: Bilateral breasts were normal with the exception of several scars. There are no palpable masses in either breast. Both axillas were normal. Supraclavicular area had no enlarged lymph nodes. There is no nipple discharge. On ultrasound I was able to localize the mass the 12 o'clock position in the left inner upper quadrant of the breast. Resp Effort AND Inspection: normal respiratory effort Auscultation: clear to auscultation bilaterally Cardio Rate: regular rate Rhythm: regular rhythm Heart Sounds: no murmurs GI Inspection: normal to inspection Palpation: soft, nontender Office Procedures Biopsy Provider Documentation The patient's left breast was prepped and draped in the usual sterile fashion. Ultrasound was used to localize the mass in the upper inner quadrant of the left breast. Next the area lateral to this was anesthetized with lidocaine. A small judy was made in the skin and a mammotome biopsy needle was placed into the breast under ultrasound guidance. Several biopsies were taken of the mass and a localization clip was placed adjacent to the mass. The needle was then removed and a Steri-Strip and bandage were placed over the incision and an ice pack was placed. The patient tolerated the procedure well. Biopsy Breast Biopsy: 47779 US Guidance Procedure Time Out Time Out Informed consent given: Yes Consent signed: Yes Time out checklist: patient, procedure, site marked/identified, positioning of patient, supplies available, allergies confirmed, team agrees on procedure Time out staff in room: Yes Time out verified: Yes Time out date: 09/03/17 Time out time: 08:45 Assessment AND Plan Problems 1. Mass of upper inner quadrant of left breast N63.22 Plan 1. The patient had an ultrasound which showed a BI-RADS 5 lesion in left breast in the superior inner position. I was able to localize this with our ultrasound in the office and perform an ultrasound-guided left breast biopsy with placement of clip. 2. I explained that if this was cancerous I would have her back to discuss surgical options. We would discuss mastectomy versus lumpectomy as well as possible reconstruction. Given the fact that she had a prior lumpectomy around the same site she may not be a candidate for lumpectomy. She may require mastectomy and reconstruction. I also discussed the possibility that this could be discordant if it came back negative. In that case I would recommend an excisional biopsy. I also explained that if I did an excisional biopsy and follow this was cancer and have to return to the operating room for sentinel lymph node biopsy. The patient understand all these options and all questions were answered. She will be awaiting pathology results. Kumar Esparza MD Pager: [facility] [address] [place] [address], [address] [place] [address] Office: Orders Orders: Coding Level of Care Code No Charge Diagnoses Mass of upper inner quadrant of left breast N63.22 Additional Codes Biopsy - Breast Biopsy: 23597 US Guidance (77285) Comment procedure charge 09/03/17 0952 <Electronically signed by Kumar Epsarza MD> Date Kumar Esparza MD [facility] Signature: Date (if applicable) CC: Candi Patel DO BREAST BIOPSY Observed: 09/03/2017 Status: F Source: [place] (CHOOSE SITE) 8:45 AM [facility] [place] Patient: CELINA URBINA : 1960 (57/F) Acct Num: [id number] Phys: Isaias MURO,Kumar Unit Num: [id number] Loc: LABSPEC Specimen: [id number] Received: 09/03/17 7020 Spec Type: BREAST BX TISSUES TISSUES: Left breast, NOS COMMENT 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 Immunohistochemistry ([id number]) supports the above diagnosis. ER/ND/Bia3lfs studies are being performed on sections of tumor and the results from this study will be reported separately ([id number]). GROSS DESCRIPTION The specimen consists of multiple elongated fragments of wayne- yellow fibroadipose tissue mixed with blood clot, measuring in aggregate 2.5 x 2 x 0.1 cm. The entire specimen is submitted in one cassette. SJ:jorge 09/04/17 TC:0 CPT: 42994 HEADER OPERATION: Ultrasound guided left breast biopsy PRE-OP DIAGNOSIS: Abnormal mammogram of left breast TISSUE SUBMITTED: Left breast biopsy tissue ISCHEMIC TIME: 1 minute FIXATION TIME: 34 hours MICROSCOPIC DESCRIPTION Slides are reviewed. 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 Focal ductal carcinoma in situ. See comment. SJ:jorge 09/05/17 Signed Harvinder Krishnamurthy 09/05/17 <signature on file> Performed By: #### PBRBX #### [facility] [address], [address] IMMUNOHISTOCHEMISTRY Observed: 09/03/2017 Status: F Source: [place] 12:00 AM [facility] [place] Patient: CELINA URBINA : 1960 (57/F) Acct Num: [id number] Phys: Kumar Esparza MD Unit Num: [id number] Loc: LABSPEC Specimen: [id number] Received: 09/05/17 - 1027 Spec Type: IMMUNO TISSUES TISSUES: Left breast, NOS SPECIMEN INFORMATION: Tissue Source: Left breast tissue, biopsy Clinical Info: Abnormal mammogram of left breast Specimen Number: [id number] CPT code: 35809, 00945l5, 46586l9 METHODOLOGY: Deparaffinized sections of prefer/formalin-fixed tissue or PAP/DQ stained slides are incubated with monoclonal/polyclonal antibodies/oligonucleotide probes. Localization is made via biotin free immunoperoxidase method. Appropriate controls are performed and reacted as expected. Results on target cell population are indicated in the following table: RESULTS: ANTIBODY / CLONE RESULT E-Cad (ECH-6) positive CK8 (16tamqG92) positive CK5-6 (D5 AND 1684) negative Ki-67 (30-9) positive, low to moderate P53 (DO-7) positive, low MORPHOMETRIC ANALYSIS : ER (clone 6F11) >95%, strong ND (clone 16/1E2) 6%, weak Her-2Neu (clone CB11) 0 The prognostic test for HER2 is performed on formalin-fixed paraffin embedded tissue. A 3+ (positive) staining pattern is defined as intense, homogeneous, complete, circumferential membranous staining in >10% of contiguous tumor cells. A similar weak (2+) staining pattern is interpreted as equivocal. CHRIS follow- up testing is recommended for all equivocal cases. Positivity/negativity for ER/ ND is reported if > or < 1% of the tumor cells are immuno- reactive, respectively. The ASCO/CAP criteria is used for scoring. Reference: Journal of Clinical Oncology, 2013; 31:6112-6210 AND 2009; 16:2784- 2795. Duration of fixation : 34 Hrs; Sample Adequate: Yes. These assays have not been validated on decalcified tissues. Results should be interpreted with caution given the likelihood of false negativity on decalcified specimens. These tests were developed and their performance characteristics determined by [facility]. They may not have been cleared or approved by the U.S. Food and Drug Administration. The FDA has determined that such clearance or approval is not necessary. INTERPRETATION: Left breast tissue, biopsy: Invasive ductal carcinoma, nuclear grade 2 Positive for estrogen receptors (favorable prognostic indicator). Positive for progesterone receptors (unfavorable prognostic indicator). Negative for overexpression of WML6kcr. SJ:herman 09/05/17 PHYSICIAN [facility] INSTIT[facility] [address] [address] Signed Harvinder Krishnamurthy 09/08/17 <signature on file> Performed By: #### PIMM #### [facility] [address] [place] [address]. [place], [address] BREAST LIMITED Observed: 08/27/2017 Status: F Source: [facility] 3:36 PM [facility] [place] [facility] Services [address] [place] [address] Breast Limited Unilateral MR#: [id number] Acct: [id number] Name: CELINA URBINA Rep #: [id number] : 1960 F 57 From: Tye Munoz MD PCP: Candi Patel DO Status: REG CLI Study: Breast Limited Unilateral Date of Exam: 08/27/17 Exam# [id number] Ordering Dr: Candi Patel DO STUDY: ULTRASOUND BREAST - LEFT REASON FOR EXAM: Female, 57 years old. Abnormal screening mammogram. TECHNIQUE: Axial and longitudinal images of the LEFT breast were performed with a high resolution ultrasound transducer. COMPARISON: Comparison is made with prior mammogram dated August 21, 2017. FINDINGS: LEFT Breast: There is a 7 mm x 8 mm x 7 mm irregular nodular hypoechoic density at the 12:00 position of the breast 4 cm from nipple. This corresponds to the mammographic findings. A biopsy is recommended. US/Breast Limited Unilateral IMPRESSION: 7 mm x 8 mm x 7 mm suspicious nodule at the 12:00 breast at 4 cm from nipple as described. A biopsy is recommended. ASSESSMENT CATEGORY: BIRADS Category 5: Highly Suggestive of Malignancy - Appropriate Action Should Be Taken. A letter regarding these results will be sent to the patient by the facility within 30 days. Electronically Signed: Tye Munoz MD at 8:10 EDT Tel [phone], Service support , CC: Candi Patel DO Stock Clipper: Signed DEXA BONE DENSITY Observed: 08/21/2017 Status: F Source: [place] STUDY 10:19 AM [facility] [place] [facility] Imaging Services [address] [place] [address] Dexa Bone Density Study MR#: [id number] Acct: [id number] Name: CELINA URBINA Rep #: [id number] : 1960 F 57 From: Vincent Sullivan DO PCP: Candi Patel DO Status: REG CLI Study: Dexa Bone Density Study Date of Exam: 08/21/17 Exam# [id number] Ordering Dr: Candi Patel DO STUDY: DUAL ENERGY X-RAY ABSORPTIOMETRY / DXA REASON FOR EXAM: Female, 57 years old. Surgical menopause at age 48. Moderate exercise. TECHNIQUE: Bone Mineral Density (BMD) measurements of lumbar spine hips were obtained. COMPARISON: None. FINDINGS: Lumbar Spine (L1-L4): g/cm2 (0.853) / T-score (-2.9) / Z-score (-1.7) Findings are suggestive of osteoporosis with a high fracture risk. BD/Dexa Bone Density Study IMPRESSION: The patient is considered osteoporotic as outlined below according to World Mario Organization (WHO) criteria with a high fracture risk. Reference Information: The T-score is the number of standard deviations above or below the standard which is normal for young adults at their peak bone mineral density. The World Health Organization (WHO) interprets the T-scores as follows: Above -1 Normal bone density Between -1 and -2.5 Osteopenia Equal to / or below -2.5 Osteoporosis As a practical clinical guideline, osteopenia may be graded as follows: Mild -1 through -1.5 Moderate -1.6 through -2.0 Severe -2.1 through -2.4 The Z-score is the number of standard deviations above or below age-matched controls. A Z-score of less than -1.5 would be considered abnormal. References: 1. NIH Osteoporosis and Related Bone Diseases http://www.osteo.org 2. International Society for Clinical Densitometry http://www.iscd.org 3. National Osteoporosis Foundation http://www.nof.org Electronically Signed: Vincent SullivanDO at 11:22 EDT Tel [phone], Service support , CC: Candi Patel DO Stock Clipper: Signed SCREENING MAMM (CAD), Observed: 08/21/2017 Status: F Source: [place] 10:19 AM [facility] [place] [facility] Imaging Services [address] [place], [place] [address] [address] SCREENING MAMM (CAD), BILAT MR#: [id number] Acct: [id number] Name: CELINA URBINA Rep #: [id number] : 1960 F 57 From: Tye Munoz MD PCP: Candi Patel DO Status: REG CLI Study: SCREENING MAMM (CAD), BILAT Date of Exam: 08/21/17 Exam# [id number] Ordering Dr: Candi Patel DO MAMMOGRAPHY - BILATERAL SCREENING REASON FOR EXAM: Female, 57 years old. Routine annual screening examination. PERTINENT HISTORY: Remote bilateral excisional breast biopsies. TECHNIQUE: Digital bilateral breast ubaldo (3D mammographic acquisition) in the CC and MLO projections. 2-D mediolateral oblique (MLO) and craniocaudad (CC) views of both breasts were obtained. CAD: Full Field Digital Mammography with Computer Added Detection was performed. COMPARISON: Comparison is made with prior study dated February 19, 2016 and October 14, 2014. FINDINGS: Breast Composition: The breasts are heterogeneously dense, which may obscure small masses. There now is evidence of a 1 cm x 1 cm spiculated nodule in the upper deep midportion of the left breast. A neoplastic process should be ruled out. Correlation with ultrasound is recommended for further evaluation. No other significant abnormalities are identified. BI/SCREENING MAMM (CAD), BILAT IMPRESSION: 1 cm x 1 cm spiculated nodular density in the left breast as described. Correlation with ultrasound is recommended. ASSESSMENT CATEGORY: BIRADS Category 0: Incomplete. Need additional imaging evaluation. A letter regarding these results will be sent to the patient by the facility within 30 days. Approximately 10% of breast cancers are not detected by mammography. A normal mammogram should not delay biopsy of a clinically suspicious abnormality. [id number] Electronically Signed: Tye Munoz MD at 15:26 EDT Tel [phone], Service support , CC: Candi Patel DO Stock Clipper: Signed PROGRESS Observed: 03/20/2017 Status: COMPLETED Source: [place] 8:45 AM [facility] RE[facility] O ID: [id number] Author: Tania Gibson Service: (none) Author Type: Physician Type: Progress Notes Filed: 04/17/2017 1:46 PM Note Text: Ortho Knee Follow Up Note Narrative Referring Provider: Tania Gibson MD [address] [address] PCP: Candi Patel, IMPRESSION/PLAN: 57 year old female s/p Bilateral Total Knee Replacements completed on 12/20/16. IMPRESSION: No complaints or limitations At normal post-operative stage of recovery. PLAN: No new treatment indicated: Routine follow-up and Continue Quadricept strengtheing exercises. Patient Reassurance: Normal post-operative course discussed with patient. Progress appears to be with the normal speed of recovery. Patient reassured and supported. All questions answered. Follow up 3 months No X-Rays Needed Celina Urbina presents today for a an intermediate post- op visit ACTIVE PROBLEM LIST Essential Hypertension Mild Intermittent Asthma Status Post Bilateral Knee Replacements Status post op: Bilateral Total Knee Replacements BMI: Body mass index is 25.99 kg/(m2). Post-operative recovery was complicated by restless at night. Patient rates his condition as improving. Does the patient still experience pain? Onset: nighttime. Location: Bilateral knees. Frequency: intermittently. Pain scale: 3. Pain character: ache and restless. Relieving factors: Pain medication and walking, stretching. Aggravating factors: None Post Op discharge patient location: in home. Functional Assessment is as follows: Still doing home exercises. Functional difficulties: Interferes with sleep. Pain Medication: oxycodone Currently Ambulating with: no ambulation aides EXAM: POST OP KNEE Bilateral Post-Operative Knee Ambulates with a: normal gait. SKIN: Appropriate postop appearance, No evidence of erythema, warmth, discharge or drainage and incision is healing well. LEFT KNEE: Range of motion is 0 degrees in extension and 100 degrees of flexion. Extension Lag: < 10 degrees Pain with ROM:No There is Slight effusion. Mal-alignment: No Tender to the palpation of None Neurovascular Status: Sensation Intact, Moves foot and ankle up AND down and 2+ dorsalis pedis Stability:Anterior/Posterior- Yes, stable Quad strength: improving. Demonstrated quad strengthening exercises today. RIGHT KNEE: Range of motion is 0 degrees in extension and 90 degrees of flexion. Extension Lag: < 10 degrees Pain with ROM:No There is Mild effusion. Mal-alignment: No Tender to the palpation of None Neurovascular Status: Sensation Intact, Moves foot and ankle up AND down and 2+ dorsalis pedis Stability:Anterior/Posterior- Yes, stable Quad strength: improving Imagin. None today. Provider: Tania Gibson MD ALLERGIES ALLERGIES DATE TYPE / CODE NAME / CODE REACTION SEVERITY SOURCE 02/09/2018 Drug orange Nausea/Vom/Diar Unknown [facility] Allergy/4160 juice/[id number] [facility] [address](SNOMED 13(RXNORM) Repository CT) 10/15/2016 DRUG ORANGE JUICE GI UPSET [facility] INGREDI/[address] [place] [address](SNOMED Repository CT) ENCOUNTERS ENCOUNTERS ADMIT/DISCHARGE ACCOUNT ADMITTING ENCOUNTER LOCATION SOURCE NUMBER CLASS 02/09/2018 [id number] Ambulatory BMSBuilding:Jana Romero MS.[facility] Repository 02/09/2018 [id number] [facility] Rep[facility] 02/06/2018 [id number] [facility] Repository 02/05/2018 [id number] [facility]LAB Repository 02/02/2018 [id number] [facility]NM Repository 01/13/2018 [id number] Ambulatory BMSBuilding:B Wall MS.CF.[facility] Repository 12/30/2017/12/31/19 [id number] Ambulatory [address] Other [place] Repository 12/30/2017/01/02/20 [id number] Ambulatory [address] Repository 12/22/2017 [id number] Ambulatory BMSBuilding:[facility].CF.[facility] Repository 12/17/2017 [id number] Ambulatory BMSBuilding:B Heather MS.CF.[facility] Repository 12/11/2017 [id number] Ambulatory BMS[facility] Repository 12/10/2017 [id number] Ambulatory BMSBuilding:B [facility] MS.CF.[facility] Repository 12/03/2017 [id number] Ambulatory BMSBuilding:B [facility] MS.[facility] Repository 11/26/2017 [id number] Ambulatory BMSBuilding:[place].[facility] Repository 11/19/2017 [id number] Ambulatory BMSBuilding:[facility] Repository 11/18/2017 [id number] Ambulatory BMSBuilding:[facility] Repository 11/14/2017 [id number] Ambulatory BMSBuilding:[facility] Repository 11/06/2017 [id number] Ambulatory BMSBuilding:[facility] Repository 11/05/2017 [id number] Ambulatory BMSBuilding:B Heather MS.CF.[facility] Repository 10/16/2017 [id number] Ambulatory BMSBuilding:[facility] [place] MS.CF.[facility] Repository 10/16/2017 [id number] Ambulatory BMSBuilding:B Heather MS.CF.[facility] Repository 10/06/2017/10/07/19 [id number] Ambulatory BMSBuilding:B Wall 18 MS.[facility] Repository 09/18/2017/09/19/19 [id number] Ambulatory [address] [facility] Hospital ing:SDC Repository 09/18/2017 [id number] Ambulatory BMSBuilding:B Heather MS.CF.[facility] Repository 09/11/2017/09/12/19 [id number] Ambulatory BMSBuilding:B Heather 18 MS.[facility] Repository 09/03/2017 [id number] Ambulatory [facility] Hospital ing:LABSPEC Repository 09/03/2017/09/04/19 [id number] Ambulatory BMSBuilding:B Wall 18 MS.[facility] Repository 08/27/2017 [id number] Ambulatory [facility] ing:FARIA Repository 08/21/2017 [id number] [facility] ing:OPBD Repository 03/20/2017/04/17/19 [id number] Ambulatory [address] Repository PAYERS PAYERS ENCOUNTER GUARANTOR PAYER SUBSCRIBER SOURCE 02/09/2018 CELINA Bryant Primary BRANDYN R Wall [id number] E Insurance:ANTHEMPolic [facility] Number: [id number] [id number] Repository [address]Vqx: 330) Date:2510-57-24QO [phone] () [id number], [place] [address]VC: 02/09/2018 Secondary NOT GIVENUNK Heather Insurance:SELF PAY [facility] Number: Effective Repository Date:2018-02-09 02/09/2018 CELINA L Primary BRANDYN R Heather [id number] E Insurance:ANTHEMPolic MATHEWSDOB: [facility] y Number: [id number] [place], [place] [id number] Repository [address]Jmi: (330) Date:3956-26-42DE [phone] () [id number], [place] [address]RM: 02/09/2018 Secondary NOT GIVENUNK Heather Insurance:SELF PAY [facility] Number: Effective Repository Date:2017-09-23 02/06/2018 CELINA L Primary BRANDYN R Heather [id number] E Insurance:ANTHEMPolic MATHEWSDOB: [facility] y Number: [id number] [place], [place] [id number] Repository [address]Pag: (330) Date:6748-40-73TY [phone] () [id number], [place] [address]TP: 02/06/2018 Secondary NOT GIVENUNK Wall Insurance:SELF PAY [facility] Number: Effective Repository Date:2017-12-22 02/05/2018 CELINA L Primary BRANDYN R Wall [id number] E Insurance:ANTHEMPolic MATHEWSDOB: [facility] y Number: [id number] [place], [place] [id number] Repository [address]Qsg: (330) Date:2620-03-45AX [phone] () [id number], [place] [address]SL: 02/05/2018 Secondary NOT GIVENUNK Wall Insurance:SELF PAY [facility] Number: Effective Repository Date:2018-02-05 02/02/2018 CELINA L Primary BRANDYN R Wall [id number] E Insurance:ANTHEMPolic MATHEWSDOB: [facility] y Number: [id number] [place], [place] [id number] Repository [address]Bjv: (330) Date:2984-76-03DJ [phone] () 148184RSKGGWW, [place] [address]FF: 02/02/2018 Secondary NOT GIVENUNK Wall Insurance:SELF PAY [facility] Number: Effective Repository Date:2017-12-22 01/13/2018 CELINA L Primary [place] R Heather [id number] E Insurance:ANTHEMPolic MathewsDOB: Community [facility] y Number: [id number] Colorado [id number] Repository [address]Qcf: (330) Date:2838-10-41KM [phone] () [address] [place] [address] [place] [address]XL: 01/13/2018 Secondary NOT GIVENUNK Wall Insurance:SELF PAY [facility] Number: Effective Repository Date:2018-01-13 12/22/2017 CELINA L Primary Brandyn R Wall [id number] E Insurance:ANTHEMPolic MathewsDOB: Critical access hospital y Number: [id number] Colorado [id number] Repository [address]Czd: (330) Date:8948-17-95UL [phone] () [id number], [place] [address]HU: 12/22/2017 Secondary NOT GIVENUNK Wall Insurance:SELF PAY [facility] Number: Effective Repository Date:2017-12-22 12/17/2017 CELINA L Primary [place] R Heather [id number] E Insurance:ANTHEMPolic MathewsDOB: Community [facility] y Number: [id number] [place], [place] [id number] Repository [address]Tyf: (330) Date:4868-07-33OJ [phone] () 100[address]MSAXYOP, [place] [address]DL: 12/17/2017 Secondary NOT GIVENUNK Heather Insurance:SELF PAY [facility] Number: Effective Repository Date:2017-12-17 12/11/2017 CELINA L Primary Madison R Wall [id number] E Insurance:ANTHEMPolic MathewsDOB: Community [place] y Number: [id number] [place], [place] [id number] Repository [address]Ypr: (330) Date:4779-37-81[phone] () [place] [address]VQ: 12/11/2017 Secondary NOT GIVENUNK Heather Insurance:SELF PAY [facility] Number: Effective Repository Date:2017-12-11 12/10/2017 CELINA L Primary Brandyn R Wall [id number] E Insurance:ANTHEMPolic MathewsDOB: [facility] y Number: [id number] [facility] [id number] Repository [address]Wxt: (330) Date:7988-75-17CC [phone] () [place] [address]2341HU: 12/10/2017 Secondary NOT GIVENUNK Heather Insurance:SELF PAY [facility] Number: Effective Repository Date:2017-12-10 12/03/2017 CELINA L Primary Madison R Heather [id number] E Insurance:ANTHEMPolic MathewsDOB: [facility] BLAZE y Number: [id number] Colorado [id number] Repository [address]7586Jle: (330) Date:4360-64-32LV [phone] () [id number] ARAMBULA 10115PT: 12/03/2017 Secondary NOT GIVENUNK Wall Insurance:SELF PAY [facility] Number: Effective Repository Date:2017-12-03 11/26/2017 CELINA L Primary Brandyn R Wall [id number] E Insurance:ANTHEMPolic MathewsDOB: [facility] BLAZE y Number: [id number] Colorado [id number] Repository 34161Rpp: (330) Date:2082-47-99KD [phone] () [id number] ARAMBULA [address]3853GQ: 11/26/2017 Secondary NOT GIVENUNK Wall Insurance:SELF PAY [facility] Number: Effective Repository Date:2017-11-26 11/19/2017 CELINA L Primary Brandyn R Wall [id number] E Insurance:ANTHEMPolic MathewsDOB: [facility] y Number: [id number] [place], [place] [id number] Repository [address]Jyf: (330) Date:5773-65-34OR [phone] () [address] [place] [address]708JF: 11/19/2017 Secondary NOT GIVENUNK Heather Insurance:SELF PAY [facility] Number: Effective Repository Date:2017-11-19 11/18/2017 CELINA L Primary Madison R Wall [id number] E Insurance:ANTHEMPolic MathewsDOB: [facility] y Number: [id number] [place], [place] [id number] Repository [address]Ddl: (330) Date:7999-94-81MM [phone] () [address] [place] [address] 33043CZ: 11/18/2017 Secondary NOT GIVENUNK Heather Insurance:SELF PAY [facility] Number: Effective Repository Date:2017-11-18 11/14/2017 CELINA Bryant Primary Madison R Wall [id number] E Insurance:ANTHEMPolic MathewsDOB: [facility] y Number: [id number] [place], [place] [id number] Repository [address]Xwb: (330) Date:0678-21-31NU [phone] () [id number] [place] [address] 35120IE: 11/14/2017 Secondary NOT GIVENUNK Heather Insurance:SELF PAY [facility] Number: Effective Repository Date:2017-11-14 11/06/2017 CELINA Bryant Primary Madison R Wall [id number] E Insurance:ANTHEMPolic MathewsDOB: [facility] y Number: [id number] [place], [place] [id number] Repository 95[address]Plk: (330) Date:9445-92-42UJ [phone] () [place]AWTCJ, [place] [address]XD: 11/06/2017 Secondary NOT GIVENUNK Wall Insurance:SELF PAY [facility] Number: Effective Repository Date:2017-11-06 11/05/2017 CELINA L Primary Madison R Heather [id number] E Insurance:ANTHEMPolic MathewsDOB: Community [place] y Number: [id number] [place], [place] [id number] Repository [address]Ajx: (330) Date:2121-03-13PD [phone] () [place] 77467OL: 11/05/2017 Secondary NOT GIVENUNK Heather Insurance:SELF PAY [facility] Number: Effective Repository Date:2017-11-05 10/16/2017 CELINA L Primary Brandyn R Wall [id number] E Insurance:ANTHEMPolic MathewsDOB: Community [facility] y Number: [id number] [place], [place] [id number] Repository [address]Cvo: (330) Date:8960-27-41RC [phone] () [place] 52805DJ: 10/16/2017 Secondary NOT GIVENUNK Heather Insurance:SELF PAY [facility] Number: Effective Repository Date:2017-10-16 10/16/2017 CELINA L Primary Brandyn R Wall [id number] E Insurance:ANTHEMPolic MathewsDOB: Community [place] y Number: [id number] [place], [place] [id number] Repository [address]271Pdf: (330) Date:4549-73-43TP [phone] () [id number] ARAMBULA 00826IF: 10/16/2017 Secondary NOT GIVENUNK Heather Insurance:SELF PAY [facility] Number: Effective Repository Date:2017-10-16 10/06/2017 CELINA L Primary Madison R Heather [id number] E Insurance:ANTHEMPolic MathewsDOB: Community [place] y Number: [id number] Colorado [id number] Repository 79164Vyq: (330) Date:5822-32-95SV [phone] () [place] 89751YM: 10/06/2017 Secondary NOT GIVENUNK Heather Insurance:SELF PAY [facility] Number: Effective Repository Date:2017-09-19 09/18/2017 CELINA Bryant Primary Brandyn R Wall [id number] E Insurance:ANTHEMPolic MathewsDOB: [facility] y Number: [id number] Colorado [id number] Repository 72042Kse: (330) Date:0714-67-28KZ [phone] () [place] 48751CQ: 09/18/2017 Secondary NOT GIVENUNK Heather Insurance:SELF PAY [facility] Number: Effective Repository Date:2017-09-15 09/18/2017 CELINA Bryant Primary Madison R Wall [id number] E Insurance:ANTHEMPolic MathewsDOB: [facility] y Number: [id number] [place], [place] [id number] Repository 53747Fub: (330) Date:1871-27-40DM [phone] () [id number] ARAMBULA 52351YM: 09/18/2017 Secondary NOT GIVENUNK Wall Insurance:SELF PAY [facility] Number: Effective Repository Date:2017-09-18 09/11/2017 Madison R Primary Brandyn R Wall [id number] E Insurance:ANTHEMPolic MathewsDOB: Community [place] y Number: [id number] [place], [place] [id number] Repository 81182Xhw: (330) Date:7014-98-94IY [phone] () [place]ME[place] [address]SK: 09/11/2017 Secondary NOT GIVENUNK Heather Insurance:SELF PAY [facility] Number: Effective Repository Date:2017-09-05 09/03/2017 Brandyn R Primary Brandyn R Heather [id number] E Insurance:ANTHEMPolic MathewsDOB: Community [place] y Number: [id number] County [id number] Repository 44273Ogs: (330) Date:8320-75-50EE [phone] () [id number] [place] [address] 07528RY: 09/03/2017 Secondary NOT GIVENUNK Heather Insurance:SELF PAY [facility] Number: Effective Repository Date:2017-09-03 09/03/2017 Brandyn R Primary Madison R Heather [id number] E Insurance:ANTHEMPolic MathewsDOB: [facility] y Number: [id number] County [id number] Repository 86625Kkj: (330) Date:2403-00-94BB [phone] () [id number] [place] [address] 24009SY: 09/03/2017 Secondary NOT GIVENUNK Wall Insurance:SELF PAY [facility] Number: Effective Repository Date:2017-09-03 08/27/2017 Brandyn R Primary Brandyn R Wall [id number] E Insurance:ANTHEMPolic MathewsDOB: [facility] y Number: [id number] [place], [place] [id number] Repository 48998Wrw: (330) Date:0955-30-60ZT [phone] () [id number] [place] [address]KG: 08/27/2017 Secondary NOT GIVENUNK Heather Insurance:SELF PAY [facility] Number: Effective Repository Date:2017-08-25 08/21/2017 Madison R Primary Madison R Heather [id number] E Insurance:ANTHEMPolic MathewsDOB: [facility] y Number: [id number] County [id number] Repository [address]Qlw: (330) Date:4628-83-88IQ [phone] () 194432RAOHHKW, [place] [address]ZG: 08/21/2017 Secondary NOT GIVENUNK Wall Insurance:SELF [facility]Y [facility] Effective Repository Date:2017-07-25
== END ==
PROVIDERS: Family Provider Internal Medicine; PCP Internal Medicine; Referring Provider Internal Medicine Medical Oncology; Visit Provider Internal Medicine Medical Oncology
DX: C50.212 Malignant neoplasm of upper-inner quadrant of left female breast (principal); Z79.899 Other long term (current) drug therapy
CPT/HCPCS: 36415; 80053; 85025

== ENCOUNTER → 2018-02-06 07:47 | Outpatient (CLI) | payer BC, SELFPAY ==
[2017-10-16 10:28] VITALS: BMI 26.2
[2017-12-22 14:23] VITALS: BMI 26.2
--- NOTE | 2018-02-06 07:49 | CT_ITS ---
STUDY: CT ABDOMEN AND PELVIS WITH CONTRAST REASON FOR EXAM: Female, 58 years old. History of breast cancer RADIATION DOSAGE (If Supplied By Facility): CTDIvol = ( 8.76 ) mGy, DLP = ( 823.08 ) mGycm TECHNIQUE: Transaxial images were obtained from the lower chest to the upper thighs with oral contrast. 100 ml of Isovue 300 contrast was administered. Sagittal and coronal images were reconstructed. Individualized dose optimization techniques were used for this CT. COMPARISON: CT abdomen and pelvis report dated November 23, 2012 FINDINGS: The lower chest is dictated separately. The liver is unremarkable. The gallbladder and biliary system are unremarkable. The spleen is unremarkable. The pancreas is unremarkable. The adrenal glands are unremarkable. The right kidney is unremarkable. There is no dilatation of the collecting system in the right kidney. The left kidney is unremarkable. There is no dilatation of the collecting system in the left kidney. There is a small hiatal hernia. The small bowel is unremarkable. There are diverticula scattered throughout the colon without adjacent stranding. There is mild wall thickening in the sigmoid. The appendix is surgically absent. The aorta and branch vessels are unremarkable. The inferior vena cava is unremarkable. There are small lymph nodes scattered in the retroperitoneum and mesentery. There is no free fluid in the abdomen. The urinary bladder is unremarkable. There is absence of the uterus likely from prior hysterectomy. There are small phleboliths scattered in the lower pelvis. The soft tissues of the abdominal wall are unremarkable. There are mild degenerative changes in the visualized spine. There is moderate decreased height of L1. There are marked degenerative facet changes in the lower lumbar spine, right greater than left. CT/Abdomen/Pelvis WITH Contrast IMPRESSION: There is no evidence of metastatic disease in the abdomen or pelvis. No bone lesions are seen. There is diverticulosis of the colon. Mild wall thickening in the sigmoid is consistent with chronic diverticular disease. There are no acute bowel abnormalities. There is no ascites, free air or significant lymphadenopathy. There is moderate compression of L1. There is no abnormal tracer activity in this vertebral body on the recent nuclear medicine bone scan indicating an old finding. Electronically Signed: Faye Ramos MD at 0:20 EST Tel Direct: [phone], Service support ,
--- NOTE | 2018-02-06 07:50 | CT_ITS ---
STUDY: CT CHEST WITH CONTRAST REASON FOR EXAM: Female, 58 years old. History of breast cancer RADIATION DOSAGE (If Supplied By Facility): CTDIvol = ( 8.76 ) mGy, DLP = ( 823.08 ) mGycm TECHNIQUE: Transaxial imaging was performed following intravenous administration of 100 ml of Isovue 300 contrast material. Sagittal and coronal reconstructions were performed. Individualized dose optimization techniques were used for this CT. COMPARISON: None. FINDINGS: There is minimal biapical scarring. There are no lung nodules. There are no focal airspace opacities. There are minimal coarse markings in the periphery of both lung bases. There is no demonstrated pleural abnormality. The heart is normal in size. The mediastinum is unremarkable. The hilar regions are unremarkable. The pulmonary arteries are unremarkable. The thoracic aorta is within normal limits. There are minimal degenerative changes in the visualized spine. There are no significant abnormalities in the visualized upper abdomen. CT/Chest WITH Contrast IMPRESSION: There is no evidence of metastatic disease in the chest. There are no lung nodules. There is no pleural effusion or significant lymphadenopathy. There are mild chronic changes in the lung apices. There is minimal atelectasis and/or scarring in both lung bases. Electronically Signed: Faye Ramos MD at 20:52 EST Tel Direct: [phone], Service support ,
--- OUTSIDE RECORDS SUMMARY | 2018-04-03 01:26 | XMS RPT_ITS ---
:1960 Author Organization OHIP Support Name Relationship Address Phone JOSE DAVID URBINA Unavailable [address] + [place] [address] [employer]TER[employer] Unavailable [address] + [place] [address] JOSE DAVID URBINA Unavailable [address] + [place] [address] [employer]TER[employer] Unavailable [address] + [place] [address] JOSE DAVID URBINA Unavailable [address] + [place] [address] [employer]TER[employer] Unavailable [address] + [place] [address] JOSE DAVID URBINA Unavailable [address] + [place] [address] ENTER[employer] Unavailable [address] + [place] [address] JOSE DAVID URBINA Unavailable [address] + [place] [address] + [place] [address] JOSE DAVID URBINA Unavailable [address] + [place] [address] + [place] [address] JOSE DAVID URBINA Unavailable [address] + [place] [address] + [place] [address] JOSE DAVID URBINA Unavailable [address] + [place] [address] Un[address] + [place] [address] URBINA, JOSE DAVID Unavailable [address] + [place] [address] Un[address] + [place] [address] URBINA, JOSE DAVID Unavailable [address] + [place] [address] Un[address] + [place] [address] URBINA, JOSE DAVID Unavailable [address] + [place] [address] Un[address] + [place] [address] URBINA, JOSE DAVID Unavailable [address] + [place] [address] Un[address] + [place] [address] URBINA, LESLIE Unavailable [address] + [place] [address] Un[address] + [place] [address] URBINA, JOSE DAVID Unavailable [address] + [place] [address] Un[address] + [place] [address] URBINA, JOSE DAVID Unavailable [address] + [place] [address] Un[address] + [place] [address] [facility] [address] + [place] [address] Un[address] + [place] [address] URBINA, JOSE DAVID Unavailable [address] + [place] [address] Un[address] + [place] [address] URBINA, JOSE DAVID Unavailable [address] + [place] [address] Un[address] + [place] [address] URBINA, JOSE DAVID Unavailable [address] + [place] [address] Un[address] + [place] [address] URBINA, JOSE DAVID Unavailable [address] + [place] [address] Un[address] + [place] [address] URBINA, JOSE DAVID Unavailable [address] + [place] [address] Un[address] + [place] [address] URBINA JOSE DAVID Unavailable [address] + [place] [address] Un[address] + [place] [address] URBINA, JOSE DAVID Unavailable [address] + [place] [address] Un[address] + [place] [address] URBINA JOSE DAVID Unavailable [address] + [place] [address] Un[address] + [place] [address] URBINA, JOSE DAVID Unavailable [address] + [place] [address] Un[address] + [place] [address] URBINA, JOSE DAVID Unavailable [address] + [place] [address] Un[address] + [place] [address] CIARA BRANDYN Unavailable [address] + [place] [address] Un[address] + [place] [address] Care Team Providers Name Role Phone TANIA [...] Lorenzo Active Heather Malignant neoplasm Community of [facility] quadrant of left Repository female breast / C50.212(ICD-10) 12/30/2017 Active Pain in left knee NA Active / M25.562(ICD-10) Other [place] Repository 12/30/2017 Active Pain in right knee NA Active / M25.561(ICD-10) Other [place] Repository 12/18/2017 Unknown C50.912 - Roman Sargent Active [facility] Malignant neoplasm Community of unspecified Hospital site of left Repository female breast / C50.912(ICD-10) 09/11/2017 Unknown C50.919 - Calmayra, Active [facility] Malignant neoplasm Kumar Community of unspecified Hospital site of Repository unspecified female breast / C50.919(ICD-10) 10/06/2017 Unknown R92.8 - Other Amanda, Active [facility] abnormal and Candi Community inconclusive Hospital findings on Repository diagnostic imaging of breast / R92.8(ICD-10) 03/20/2017 Active Unknown / GIBSONTANIA Lagunas Active UNK(Unknown) A Main [place] Repository PROCEDURES PROCEDURES No Procedure Records FoundRESULTS RESULTS ONCOLOGY VISIT REPORT Observed: 02/09/2018 Status: F Source: [place] 2:47 PM [facility] REPOSITORY [facility] [address] [place] [address] OFFICE VISIT Date of Service: 02/09/18 1428 MR#: [id number] Acct: [id number] Name: CELINA URBINA Rep #: [id number] : 1960 From: Erlin Lorenzo MD Age/Sex: [...] invasive ductal carcinoma, grade 2, (ER >95%, HI 6%, Her2 0 IHC) with focal DCIS. [...] cancer stage IA(pT1 pN0 M0) ER positive, HI positive, Her2 negative. S/P lumpectomy and sentinel [...] [ER+] Code Visit Office Visits / Consults: 62948 OV L3 Est 02/09/18 1447 <Electronically signed [...] Lymph 0.97 Performed By: #### L100.0100 #### [facility] [address] [place], [place], [address] COMPREHENSIVE METABOLIC Collected: 02/09/2018 Status: F Source: [place] [facility] 1:35 PM [facility] REPOSITORY Order Comment: Reason for Laboratory [...] GAP 5 Performed By: #### L500.4050 #### [facility] [address] [facility] [place], [address] CHEST WITH CONTRAST Observed: 02/06/2018 Status: F Source: [place] 7:50 AM [facility] REPOSITORY [facility] Imaging Services [address] [place] [address] Chest WITH Contrast MR#: [id number] Acct: [id number] Name: CELINA URBINA Rep #: [id number] : 1960 F 58 From: Faye Ramos MD PCP: Candi Patel DO Status: REG CLI Study: Chest WITH Contrast Date of Exam: 02/06/18 Exam# [id number] Ordering Dr: Erlin Lorenzo MD STUDY: CT [...] Ramos MD at 20:52 EST Tel Direct: [phone], Service support , CC: Erlin Lorenzo MD; Candi Patel DO Military Pay Clerk: Signed ABDOMEN/PELVIS WITH Observed: 02/06/2018 Status: F Source: [place] CONTRAST 7:50 AM [facility] REPOSITORY [facility] Imaging Services [address] [place] [address] Abdomen/Pelvis WITH Contrast MR#: [id number] Acct: [id number] Name: CELINA URBINA Rep #: [id number] : 1960 F 58 From: Faye Ramos MD PCP: Candi Patel DO Status: REG CLI Study: Abdomen/Pelvis WITH Contrast Date of Exam: 02/06/18 Exam# [id number] Ordering Dr: Erlin Lorenzo MD STUDY: CT [...] Ramos MD at 0:20 EST Tel Direct: [phone], Service support , CC: Erlin Lorenzo MD; Candi Patel DO Military Pay Clerk: Signed CBC W/DIFF, AUTOMATED Collected: 02/05/2018 Status: F Source: [place] 1:36 PM [facility] REPOSITORY Order Comment: Reason for Laboratory [...] Lymph 1.25 Performed By: #### L100.0100 #### [facility] [address] [place], [address] COMPREHENSIVE METABOLIC Collected: 02/05/2018 Status: F Source: [facility] 1:36 PM [facility] REPOSITORY Order Comment: Reason for Laboratory [...] GAP 5 Performed By: #### L500.4050 #### [facility] [address] [facility] [place], [address] BONE SCAN WHOLE Observed: 02/02/2018 Status: F Source: [place] BODY 8:01 AM [facility] REPOSITORY [facility] Imaging Services [address] [place] [address] Bone Scan Whole Body MR#: [id number] Acct: [id number] Name: CELINA URBINA Annette Rep #: [id number] : 1960 F 58 From: Kelvin Oleary DO PCP: Candi Patel DO Status: REG CLI Study: Bone Scan Whole Body Date of Exam: 02/02/18 Exam# [id number] Ordering Dr: Erlin Lorenzo MD CLINICAL: 58-year-old [...] CC: Erlin Lorenzo MD; Candi Patel DO Military Pay Clerk: Signed ONCOLOGY FOLLOW-UP Observed: 01/13/2018 Status: F Source: [place] VISIT 10:[address] [facility] Medical Records Department [address] [place] [address] Oncology Follow-Up Visit 01/13/18 0940 MR#: [id number] Acct: [id number] Name: CELINA URBINA Rep #: [id number] : 1960 58 From: Roman Sargent DO PCP: Candi Patel DO Status: REG RCR Y Location: [facility] Date of Service: 01/13/18 Last Clinic Visit: 12/17/17 Diagnosis: Celina Urbina is a 57-year-old female diagnosed with pathologic stage I (pT1b pN0 (sn) Mx) grade 3 invasive ductal carcinoma (ER >95%, HI 6%, Her2 0 IHC) of the left [...] grade 2 invasive ductal carcinoma (ER >95%, HI 6%, Her2 0 IHC) with focal DCIS. [...] grade 3 invasive ductal carcinoma (ER >95%, HI 6%, Her2 0 IHC) of the left [...] in the interim. Roman Sargent DO, MS Box Blank Machine Feeder, Department of Radiation Oncology [facility] 01/13/18 1004 <Electronically signed by Roman Sargent DO> Date Roman Sargent DO CC: Kumar Esparza MD; Erlin Lorenzo MD Signed PROGRESS Observed: 12/30/2017 Status: COMPLETED Source: [facility] 12:26 PM [facility] OTHER [facility] REPOSITORY HNO ID: [id number] Author: Caryn LindquistCt) KALE Strickland Service: (none) Author Type: Clinical Mechanical Shop Laborer Type: Progress Notes Filed: 12/30/2017 12:26 PM Note Text: NAME:Celina Urbina DATE: December 30, 2017 CCF#: [id number] Lower Extremity X-Ray(s): Knee, AP / Lat / Merchant Bilateral and Wt. Bearing COMPLETED TECH ID SIGN: TYSON CASTILLO PROGRESS Observed: 12/30/2017 Status: COMPLETED Source: [facility] 9:22 AM [facility] REPOSITORY HNO ID: [id number] Author: Tania Gibson Service: (none) Author Type: [...] for this visit. ALLERGIES Allergen Reactions - Cochran Juice GI Upset, Vomiting Oranges and orange [...] 3V AP/LAT/JAG Observed: 12/30/2017 Status: F Source: [facility] 9:08 AM CLINIC OTHER CAMPUS REPOSITORY * * *Final Report* * * DATE OF EXAM: Dec 30 2017 9:08AM [facility] 5635 - XR KNEE 3V AP/LAT/JAG YOVN / PROCEDURE REASON: M25.562-Left knee pain, unspecified [...] is seen bilaterally. IMPRESSION: Stable bilateral TKAs Military Pay Clerk: PSCJana Transcribe Date/Time: Dec 30 2017 9:50A Dictated by : VICTOR M HONG MD This examination was interpreted and the report reviewed and electronically signed by: VICTOR M HONG MD on Dec 30 2017 9:51AM EST [id number] Observed: 12/30/2017 Status: COMPLETED Source: [facility] 9:00 AM [facility] REPOSITORY Office Visit (ORMDNA) URBINACELINA BROWN ([id number]) 1960 F Date Time Provider Department 12/30/17 [...] for this visit. ALLERGIES Allergen Reactions - Cochran Juice GI Upset, Vomiting Oranges and orange [...] Tania Gibson MD Referring Provider: TANIA GIBSON [[id number]] Allergies As of Date: 12/30/2017 Noted Allergy [...] VISIT REPORT Observed: 12/22/2017 Status: F Source: [place] 3:00 PM [facility] REPOSITORY [facility] [address] [place] [address] OFFICE VISIT Date of Service: 12/22/17 1453 MR#: [id number] Acct: [id number] Name: CELINA URBINA Rep #: [id number] : 1960 From: Erlin Lorenzo MD Age/Sex: [...] invasive ductal carcinoma, grade 2, (ER >95%, HI 6%, Her2 0 IHC) with focal DCIS. [...] cancer stage IA(pT1 pN0 M0) ER positive, HI positive, Her2 negative. S/P lumpectomy and sentinel [...] Acute Code Visit Office Visits / Consults: 47825 OV L4 Est 12/22/17 1500 <Electronically signed by Erlin Lorenzo MD> Date Erlin Lorenzo MD Cosigner Signature: Date (if applicable) CC: Candi Patel DO CBC W/DIFF, AUTOMATED Collected: 12/22/2017 Status: F Source: [place] 1:59 PM [facility] REPOSITORY Order Comment: Reason for Laboratory [...] 0.83 Performed By: #### L100.0100, L500.4050 #### [facility] [address] [place], [place], [address] COMPREHENSIVE METABOLIC Collected: 12/22/2017 Status: F Source: [facility] 1:59 PM [facility] REPOSITORY Order Comment: Reason for Laboratory [...] 7 Performed By: #### L100.0100, L500.4050 #### [facility] [address] [place], [address] END OF TREATMENT Observed: 12/17/2017 Status: F Source: [place] SUMMARY 8:27 AM [facility] REPOSITORY [facility] [address] [place] [address] End of Treatment Summary Date of Service: 12/17/17818 MR#: [id number] Acct: [id number] Name: CELINA URBINA Rep #: [id number] : 1960 From: Roman Sargent Age/Sex: 57/F Location: [facility] Status: Signed End of Treatment Summary: Diagnosis: Celina Urbina is a 57-year-old female diagnosed with pathologic stage I (pT1b pN0 (sn) Mx) grade 3 invasive ductal carcinoma (ER >95%, HI 6%, Her2 0 IHC) of the left [...] grade 2 invasive ductal carcinoma (ER >95%, HI 6%, Her2 0 IHC) with focal DCIS. [...] this patient. Sincerely, Roman Sargent DO, MS Box Blank Machine Feeder, Department of Radiation Oncology [facility] 12/17/17826 <Electronically signed by Roman Sargent DO> Date Roman Sargent DO Cosign Signature: Date (if applicable) CC: Kumar Esparza MD; Erlin Lorenzo MD; Candi Patel DO RADIATION ONCOLOGY Observed: 12/17/2017 Status: F Source: [place] VISIT 8:18 AM [facility] REPOSITORY [facility] [place] [address] OFFICE VISIT Date of Service: 12/17/17815 MR#: [id number] Acct: [id number] Name: CELINA URBINA #: [id number] : 1960 From: Roman Sargent DO Age/Sex: 57/F Location: D Status: Signed Date of Service: 12/17/17 Diagnosis: Celina Urbina is a 57-year-old female diagnosed with pathologic stage I (pT1b pN0 (sn) Mx) grade 3 invasive ductal carcinoma (ER >95%, HI 6%, Her2 0 IHC) of the left [...] at any time. Roman Sargent DO, MS Box Blank Machine Feeder, Department of Radiation Oncology [facility] 12/17/17817 <Electronically signed by Roman Sargent DO> Date Roman Sargent DO Cosigner Signature: Date (if applicable) CC: RADIATION ONCOLOGY Observed: 12/10/2017 Status: F Source: [place] VISIT 8:30 AM [facility] REPOSITORY [facility] [address] [place], [place] [address] [place] [address] OFFICE VISIT Date of Service: 12/10/17826 MR#: [id number] Acct: [id number] Name: CELINA URBINA Rep #: [id number] : 1960 From: Roman Sargent DO Age/Sex: 57/F Location: [facility] Status: Signed Date of Service: 12/10/17 Diagnosis: Celina Urbina is a 57-year-old female diagnosed with pathologic stage I (pT1b pN0 (sn) Mx) grade 3 invasive ductal carcinoma (ER >95%, HI 6%, Her2 0 IHC) of the left [...] at any time. Roman Sargent DO, MS Box Blank Machine Feeder, Department of Radiation Oncology [facility] 12/10/17829 <Electronically signed by Roman Sargent DO> Date Roman Sargent DO Cosign Signature: Date (if applicable) CC: RADIATION ONCOLOGY Observed: 12/03/2017 Status: F Source: [place] VISIT 8:23 AM [facility] REPOSITORY [facility] [address] [place] [address] OFFICE VISIT Date of Service: 12/03/17820 MR#: [id number] Acct: [id number] Name: CELINA URBINA Rep #: [id number] : 1960 From: Roman Sargent DO Age/Sex: 57/F Location: [facility] Status: Signed Date of Service: 12/03/17 Diagnosis: Celina Urbina is a 57-year-old female diagnosed with pathologic stage I (pT1b pN0 (sn) Mx) grade 3 invasive ductal carcinoma (ER >95%, HI 6%, Her2 0 IHC) of the left [...] at any time. Roman Sargent DO, MS Box Blank Machine Feeder, Department of Radiation Oncology [facility] 12/03/17 1848 <Electronically signed by Roman Sargent DO> Date Roman Sargent DO Cosigner Signature: Date (if applicable) CC: RADIATION ONCOLOGY Observed: 11/26/2017 Status: F Source: [place] VISIT 8:14 AM [facility] REPOSITORY [facility] [place] [address] OFFICE VISIT Date of Service: 11/26/17810 MR#: [id number] Acct: [id number] Name: CELINA URBINA Rep #: [id number] : 1960 From: Roman Sargent DO Age/Sex: 57/F Location: [facility] Status: Signed Date of Service: 11/26/17 Diagnosis: Celina Urbina is a 57-year-old female diagnosed with pathologic stage I (pT1b pN0 (sn) Mx) grade 3 invasive ductal carcinoma (ER >95%, HI 6%, Her2 0 IHC) of the left [...] at any time. Roman Sargent DO, MS Box Blank Machine Feeder, Department of Radiation Oncology [facility] 11/26/17 0814 <Electronically signed by Roman Sargent DO> Date Roman Sargent DO Cosigner Signature: Date (if applicable) CC: RADIATION ONCOLOGY Observed: 11/19/2017 Status: F Source: [place] VISIT 9:05 AM [facility] REPOSITORY [facility] [place] [address] OFFICE VISIT Date of Service: 11/19/17 0859 MR#: [id number] Acct: [id number] Name: CELINA URBINA Rep #: [id number] : 1960 From: Roman Sargent DO Age/Sex: 57/F Location: [facility] Status: Signed Date of Service: 11/19/17 Diagnosis: Celina Urbina is a 57-year-old female diagnosed with pathologic stage I (pT1b pN0 (sn) Mx) grade 3 invasive ductal carcinoma (ER >95%, HI 6%, Her2 0 IHC) of the left [...] at any time. Roman Sargent DO, MS Box Blank Machine Feeder, Department of Radiation Oncology [facility] 11/19/17904 <Electronically signed by Roman Sargent DO> Date Roman Sargent DO Cosigner Signature: Date (if applicable) CC: ONCOLOGY VISIT REPORT Observed: 11/10/2017 Status: F Source: [place] 5:29 PM [facility] REPOSITORY [facility] [address] [place] [address] OFFICE VISIT Date of Service: 11/05/17 1020 MR#: [id number] Acct: [id number] Name: CELINA URBINA Rep #: [id number] : 1960 From: Erlin Lorezno MD Age/Sex: 57/F Location: [facility] Status: Signed Subjective - Date of Service [...] invasive ductal carcinoma, grade 2, (ER >95%, HI 6%, Her2 0 IHC) with focal DCIS. [...] cancer stage IA(pT1 pN0 M0) ER positive, HI positive, Her2 negative. S/P lumpectomy and sentinel [...] [ER+] Code Visit Office Visits / Consults: 61876 OV L4 Est 11/10/17 1729 <Electronically signed by rElin Lorenzo MD> Date Erlin Lorenzo MD Cosigner Signature: Date (if applicable) CC: CBC W/DIFF, AUTOMATED Collected: 11/05/2017 Status: F Source: [place] 8:55 AM [facility] REPOSITORY Order Comment: Reason for Laboratory [...] Lymph 1.03 Performed By: #### L100.0100 #### [facility] Laboratory [facility] [address] [facility]. [place], [place], [address] COMPREHENSIVE METABOLIC Collected: 11/05/2017 Status: F Source: [facility] 8:55 AM [facility] REPOSITORY Order Comment: Reason for Laboratory [...] GAP 8 Performed By: #### L500.4050 #### [facility] [address] [place], [address] ONCOLOGY CONSULTATION Observed: 10/17/2017 Status: F Source: [place] 11:27 AM [facility] REPOSITORY [facility] [address] [facility] [place] [address] Oncology Consultation Date of Service: 10/16/17 1134 MR#: [id number] Acct: [id number] Name: CELINA URBINA Rep #: [id number] : 1960 From: Erlin Lorenzo MD Age/Sex: [...] invasive ductal carcinoma, grade 2, (ER >95%, HI 6%, Her2 0 IHC) with focal DCIS. [...] Left arm with no pain. Power of Twister In: No Living Will: No Health History: Past [...] Reaction Status Date / Time orange juice [Cochran Juice] AdvReac Nausea/Vom/ Verified 10/16/17 10:27 Review [...] cancer stage IA(pT1 pN0 M0) ER positive, HI positive, Her2 negative. S/P lumpectomy and sentinel [...] [ER+] Code Visit Office Visits / Consults: 52465 OP Consult L5 10/17/17 1127 <Electronically signed by Erlin Lorenzo MD> Date Erlin Lorenzo MD Cosigner Signature: Date (if applicable) CC: Kumar Esparza MD; Candi Patel DO; Roman Sargent DO CONSULTATION Observed: 10/16/2017 Status: F Source: [place] 12:20 PM [facility] REPOSITORY [facility] Medical Records Department [address] [place] [address] Consultation 10/16/17 1206 MR#: [id number] Acct: [id number] Name: CELINA URBINA Rep #: [id number] : 1960 57 From: Roman Sargent DO PCP: Candi Patel DO Status: REG RCR Y Location: [facility] Date of Service: 10/16/17 Referring Provider: Dr. Kumar Esparza. Diagnosis: Celina Urbina is a 57-year-old female diagnosed with pathologic stage I (pT1b pN0 (sn) Mx) grade 3 invasive ductal carcinoma (ER >95%, HI 6%, Her2 0 IHC) of the left [...] grade 2 invasive ductal carcinoma (ER >95%, HI 6%, Her2 0 IHC) with focal DCIS. [...] first period: 12 Do you have regular overage shortage and damage clerk No examinations and PAP smears? Hx Control [...] Reaction Status Date / Time orange juice [Cochran Juice] AdvReac Nausea/Vom/ Verified 10/16/17 10:27 Health [...] grade 3 invasive ductal carcinoma (ER >95%, HI 6%, Her2 0 IHC) of the left [...] at any time. Roman Sargent DO, MS Box Blank Machine Feeder, Department of Radiation Oncology [facility] 10/16/17 1220 <Electronically signed by Roman Sargent DO> Date Roman Sargent DO Cosigner Signature (if applicable): Date CC: Kumar Esparza MD; Erlin Lorenzo MD; Candi Patel DO; Roman Sargent DO Signed SURGERY VISIT REPORT Observed: 10/06/2017 Status: F Source: [place] 4:02 PM [facility] REPOSITORY [facility] [address] [place] [address] [address] [place] [address] OFFICE VISIT Date of Service: 10/06/17 MR#: [id number] Acct: [id number] Name: CELINA URBINA Rep #: [id number] : 1960 Provider: Kumar Esparza MD Age/Sex: 57/F Location: [facility] Status: Signed Intake Intake Visit Reasons: 2 WK F/U L Lumpectomy TC Site Acquisition Specialist Required: No Is patient in pain?: No Allergies orange juice [Cochran Juice] Adverse Reaction (Verified 10/06/17 08:33) Nausea/Vom/Diarrhea [...] for possible chemotherapy. Kumar Esparza MD Pager: [facility] [address] [place] [address], [address] [place] [address] Office: Coding Level of Care Code Global Post Op Diagnoses Malignant neoplasm of upper-inner quadrant of left breast in female, estrogen receptor positive C50.212 Estrogen receptor status: positive 10/06/17 1602 <Electronically signed by Kumar Esparza MD> Date Kumar Esparza MD Cosigner Signature: Date (if applicable) CC: Candi Patel DO; Roman Sargent DO DISCHARGE INSTRUCTION Observed: 09/18/2017 Status: F Source: [place] 12:49 PM [facility] REPOSITORY [facility] Medical Records Department [address] [place] [address] Instructions for Home/Discharge Instructions 09/18/17 1248 MR#: [id number] Acct: [id number] Name: CAIRACELINA Annette Rep #: [id number] : 1960 57 From: Kumar Esparza MD PCP: Candi Patel DO Status: REG [facility] Discharge Diet: No Restrictions Discharge Activity: May [...] Avoid Pinching/Bending Allergies/Adverse Reactions: Allergies orange juice [Cochran Juice] Adverse Reaction (Verified 09/16/17 13:13) Nausea/Vom/Diarrhea [...] to schedule 2 week follow up appointment. [phone] 09/18/17 1249 <Electronically signed by Kumar Esparza MD> Date Kumar Esparza MD CC: aCndi Patel DO OPERATIVE REPORT Observed: 09/18/2017 Status: F Source: [place] 12:45 PM [facility] REPOSITORY [facility] Medical Records Department [address] [place] [address] Operative Report 09/18/17 1238 MR#: [id number] Acct: [id number] Name: CELINA URBINA Rep #: [id number] : 1960 57 From: Kumar Esparza MD PCP: Candi Patel DO Status: REG SD Y Location: [place] [address] Problem List (1) Breast cancer of upper-inner [...] Status: F Source: HEATHER SPECIMEN 12:14 PM [facility] REPOSITORY [facility] Imaging Services [address] [place] [address] Breast Biopsy Specimen MR#: [id number] Acct: [id number] Name: CELINA URBINA Annette Rep #: [id number] : 1960 F 57 From: Tye Munoz MD PCP: Candi Patel DO Status: [facility] Study: Breast Biopsy Specimen Date of Exam: 09/18/17 Exam# [id number] Ordering Dr: Kumar Esparza MD SURGICAL BREAST SPECIMEN RADIOGRAPH CLINICAL: Document presence of mass in biopsy specimen. FINDINGS: Specimen shows presence of mass. Electronically Signed: Tye Munoz MD at 12:35 EDT Tel [phone], Service support , BI/Breast Biopsy Specimen CC: Kumar Esparza MD; Candi Patel DO Military Pay Clerk: Signed LYMPH NODE INJECTION Observed: 09/18/2017 Status: F Source: [place] ONLY 7:09 AM [facility] REPOSITORY [facility] Imaging Services [address] [address] [address] Lymph Node Injection Only MR#: [id number] Acct: [id number] Name: CELINA URBINA Rep #: [id number] : 1960 F 57 From: Tye Munoz MD PCP: Candi Patel DO Status: [facility] Study: Lymph Node Injection Only Date of Exam: 09/18/17 Exam# [id number] Ordering Dr: Kumar Esparza MD PROCEDURE: NUCLEAR MEDICINE Injection Tokio Node - LEFT breast(s). REASON FOR EXAM: Female, 57 years old. Left breast concert. TECHNIQUE: Tokio node localization using radionuclide methods of the [...] Tye Munoz MD at 10:16 EDT Tel [phone], Service support , CC: Kumar Esparza MD; Candi Patel DO Military Pay Clerk: Signed AXILLARY NODE BIOPSY Observed: 09/18/2017 Status: F Source: [place] 12:00 AM [facility] REPOSITORY Patient: CELINA URBINA : 1960 (57/F) Acct Num: [id number] Phys: Isaias MURO,Kumar Unit Num: [id number] Loc: [facility] Specimen: [id number] Received: 09/18/175 Spec Type: AX NODE BX TISSUES TISSUES: A. Axillary lymph node, NOS B. Left breast, NOS ADDENDUM Addendum Number 1 An order for Oncotype testing was received from Dr. Lorenzo. This necessitated case review, block and slide selection by pathologist at [facility]. Breast Cancer Recurrence Score = 28 Results of the complete Oncotype testing ([employer] report) are viewable in EMR under: Reports - Pathology - Lab Pathology Report, Scanned. Addendum Signed D[facility] 11/03/17 <signature on file> COMMENT INVASIVE BREAST [...] invasive carcinoma: invasive ductal carcinoma Histologic Grade ([place] grade): Glandular/tubular differentiation score: 3 Nuclear pleomorphism [...] macrometastases, micrometastases or isolated tumor cells. Immunohistochemistry ([id number]) performed on the lymph node. Microcalcifications - present in non-neoplastic tissue Treatment effect unknown Additional pathologic findings: Fibrocystic change Ancillary studies: Previously performed on same tumor (M93- 5201 / [id number]). ER: >95%, strong HI: 6%, weak Her2 ajith: 0 (IHC) PATHOLOGIC STAGE: pT1b N0(sn) Mx The above summary is in compliance with College of [place] Pathology (CAP) Cancer Protocols Checklist and [place] Joint Committee on Cancer (AJCC), Staging Manual, [...] margin measuring 1 cm in greatest dimension. Custom Bow Maker sections are submitted in 10 cassettes as follows: 1 perpendicular medial and lateral margins, 2 perpendicular anterior margin, inferior margin and skin, 3- 5 entire tumor with closest superior and posterior margin, 6-10 - branch customer service representative sections from the other areas. About 90% of the specimen is submitted. Sections will be submitted after additional fixation. / SJ:judy 09/19/17 TC:0 CPT: 89324, 23585, 02161, 53113 HEADER OPERATION: Ultrasound-guided needle localization in OR; [...] on file> Performed By: #### PAXNB #### [facility] Laboratory [address] [place] [address]. [place], [address] IMMUNOHISTOCHEMISTRY Observed: 09/18/2017 Status: F Source: [place] 12:00 AM [facility] REPOSITORY Patient: CELINA URBINA : 1960 (57/F) Acct Num: [id number] Phys: Isaias MURO,Kumar Unit Num: [id number] Loc: [facility] Specimen: [id number] Received: 09/23/17 141 Spec Type: IMMUNO TISSUES TISSUES: A. Axillary lymph node, NOS SPECIMEN INFORMATION: Tissue Source: A Left axillary sentinel lymph node tissue Clinical Info: Malignant neoplasm of upper inner quadrant, left breast, ER positive Specimen Number: [id number] CPT code: 02094, 34561 METHODOLOGY: Deparaffinized sections of prefer/formalin-fixed tissue or [...] developed and their performance characteristics determined by [facility]. They may not have been cleared or approved by the U.S. Food and Drug Administration. The FDA has determined that such clearance or approval is not necessary. INTERPRETATION: A. Left axillary sentinel lymph node tissue, biopsy: One out of one lymph node negative for carcinoma. AM:judy 09/24/17 PHYSICIAN AND INSTITUTION [place] [address] Signed Dio [facility] 09/24/17 <signature on file> Performed By: #### PIMM #### [facility] [address] [place] [address]. [place], [place], [address] SURGERY VISIT REPORT Observed: 09/12/2017 Status: F Source: [place] 2:45 PM [facility] REPOSITORY [facility] [address] [place] [address]. [address] [place] [address] OFFICE VISIT Date of Service: 09/11/17 MR#: [id number] Acct: [id number] Name: CELINA URBINA Rep #: [id number] : 1960 Provider: Kumar Esparza MD Age/Sex: 57/F Location: [facility] Status: Signed Intake Intake Visit Reasons: Discuss Breast BX Results Site Acquisition Specialist Required: No Is patient in pain?: No Allergies orange juice [Cochran Juice] Adverse Reaction (Verified 09/11/17 10:03) Nausea/Vom/Diarrhea [...] spent in counseling. Kumar Esparza MD Pager: [facility] [address] [place] [address], [address] [place] [address] Office: Orders Referrals: Coding Level of Care [...] VISIT REPORT Observed: 09/03/2017 Status: F Source: [place] 9:52 AM [facility] REPOSITORY [facility] [address] [place] [address] [address] [place] [address] OFFICE VISIT Date of Service: 09/03/17 MR#: [id number] Acct: [id number] Name: CELINA URBINA Rep #: [id number] : 1960 Provider: Kumar Esparza MD Age/Sex: 57/F Location: [facility] Status: Signed Intake Vital Signs09/03/17 Height 5 ft 4 in 09/03/17 Weight: 152 lb Intake Visit Reasons: Abnormal mammo/ US L Breast BIRADS V Site Acquisition Specialist Required: No Accompanied by: Is patient in pain?: No Allergies orange juice [Cochran Juice] Adverse Reaction (Verified 09/03/17 09:32) Nausea/Vom/Diarrhea [...] tolerated the procedure well. Biopsy Breast Biopsy: 30948 US Guidance Procedure Time Out Time Out [...] awaiting pathology results. Kumar Esparza MD Pager: [facility] [address] [place] [address], [address] [place] [address] Office: Orders Orders: Coding Level of Care Code No Charge Diagnoses Mass of upper inner quadrant of left breast N63.22 Additional Codes Biopsy - Breast Biopsy: 56548 US Guidance (84132) Comment procedure charge 09/03/17 0952 <Electronically signed by Kumar Esparza MD> Date Kumar Esparza MD [facility] Signature: Date (if applicable) CC: Candi Patel DO BREAST BIOPSY Observed: 09/03/2017 Status: F Source: [place] (CHOOSE SITE) 8:45 AM [facility] REPOSITORY Patient: CELINA URBINA : 1960 (57/F) Acct Num: [id number] Phys: Isaias MURO,Kumar Unit Num: [id number] Loc: [facility] Specimen: [id number] Received: 09/03/17 1065 Spec Type: BREAST BX TISSUES TISSUES: Left breast, NOS COMMENT 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 Immunohistochemistry ([id number]) supports the above diagnosis. ER/HI/Ftc5upu studies are being performed on sections of tumor and the results from this study will be reported separately ([id number]). GROSS DESCRIPTION The specimen consists of multiple elongated fragments of wayne- yellow fibroadipose tissue mixed with blood clot, measuring in aggregate 2.5 x 2 x 0.1 cm. The entire specimen is submitted in one cassette. SJ:jorge 09/04/17 TC:0 CPT: 28185 HEADER OPERATION: Ultrasound guided left breast biopsy [...] on file> Performed By: #### PBRBX #### [facility] [address] [place], [address] IMMUNOHISTOCHEMISTRY Observed: 09/03/2017 Status: F Source: [place] 12:00 AM [facility] REPOSITORY Patient: CELNIA URBINA : 1960 (57/F) Acct Num: [id number] Phys: Kumar Esparza MD Unit Num: [id number] Loc: [facility] Specimen: [id number] Received: 09/05/17 - 1027 Spec Type: IMMUNO TISSUES TISSUES: Left breast, NOS SPECIMEN INFORMATION: Tissue Source: Left breast tissue, biopsy Clinical Info: Abnormal mammogram of left breast Specimen Number: [id number] CPT code: 81497, 93483w9, 11650y1 METHODOLOGY: Deparaffinized sections of prefer/formalin-fixed tissue or PAP/DQ stained slides are incubated with monoclonal/polyclonal antibodies/oligonucleotide probes. Localization is made via biotin free immunoperoxidase method. Appropriate controls are performed and reacted as expected. Results on target cell population are indicated in the following table: RESULTS: ANTIBODY / CLONE RESULT E-Cad (ECH-6) positive CK8 (50iemgM43) positive CK5-6 (D5 AND 1684) negative Ki-67 (30-9) positive, low to moderate P53 (DO-7) positive, low MORPHOMETRIC ANALYSIS : ER (clone 6F11) >95%, strong HI (clone 16/1E2) 6%, weak Her-2Neu (clone CB11) 0 The prognostic test for HER2 is performed on formalin-fixed paraffin embedded tissue. A 3+ (positive) staining pattern is defined as intense, homogeneous, complete, circumferential membranous staining in >10% of contiguous tumor cells. A similar weak (2+) staining pattern is interpreted as equivocal. CHRIS follow- up testing is recommended for all equivocal cases. Positivity/negativity for ER/ HI is reported if > or < 1% of the tumor cells are immuno- reactive, respectively. The ASCO/CAP criteria is used for scoring. Reference: Journal of Clinical Oncology, 2013; 31:1571-7420 AND 2009; 16:2784- 2795. Duration of fixation : 34 Hrs; Sample Adequate: Yes. These assays have not been validated on decalcified tissues. Results should be interpreted with caution given the likelihood of false negativity on decalcified specimens. These tests were developed and their performance characteristics determined by [facility]. They may not have been cleared or approved by the U.S. Food and Drug Administration. The FDA has determined that such clearance or approval is not necessary. INTERPRETATION: Left breast tissue, biopsy: Invasive ductal carcinoma, nuclear grade 2 Positive for estrogen receptors (favorable prognostic indicator). Positive for progesterone receptors (unfavorable prognostic indicator). Negative for overexpression of EUX9guv. SJ:herman 09/05/17 PHYSICIAN AND INSTITUTION [address] [address] Signed Harvinder Krishnamurthy 09/08/17 <signature on file> Performed By: #### PIMM #### [facility] [address] [place] [address]. [place], [address] BREAST LIMITED Observed: 08/27/2017 Status: F Source: [facility] 3:36 PM [facility] REPOSITORY [facility] Imaging Services [address] [place] [address] Breast Limited Unilateral MR#: [id number] Acct: [id number] Name: CELINA URBINA Rep #: [id number] : 1960 F 57 From: Tye Munoz MD PCP: Candi Patel DO Status: REG CLI Study: Breast Limited Unilateral Date of Exam: 08/27/17 Exam# [id number] Ordering Dr: Candi Patel DO STUDY: ULTRASOUND [...] Tye Munoz MD at 8:10 EDT Tel [phone], Service support , CC: Candi Patel DO Military Pay Clerk: Signed DEXA BONE DENSITY Observed: 08/21/2017 Status: F Source: [place] STUDY 10:19 AM [facility] REPOSITORY [facility] Imaging Services [address] [place] [address] Dexa Bone Density Study MR#: [id number] Acct: [id number] Name: CELINA URBINA Rep #: [id number] : 1960 F 57 From: Vincent Winslow DO PCP: Candi Patel DO Status: REG CLI Study: Dexa Bone Density Study Date of Exam: 08/21/17 Exam# [id number] Ordering Dr: Candi Patel DO STUDY: DUAL [...] National Osteoporosis Foundation http://www.nof.org Electronically Signed: Vincent WinslowDO at 11:22 EDT Tel [phone], Service support , CC: Candi Patel DO Military Pay Clerk: Signed SCREENING MAMM (CAD), Observed: 08/21/2017 Status: F Source: [place] BILAT 10:19 AM [facility] REPOSITORY [facility] Imaging Services [address] [place], [place] [address] [address] SCREENING MAMM (CAD), BILAT MR#: [id number] Acct: [id number] Name: CELINA URBINA Rep #: [id number] : 1960 F 57 From: Tye Munoz MD PCP: Candi Patel DO Status: REG CLI Study: SCREENING MAMM (CAD), BILAT Date of Exam: 08/21/17 Exam# [id number] Ordering Dr: Candi Patel DO MAMMOGRAPHY - [...] delay biopsy of a clinically suspicious abnormality. [id number] Electronically Signed: Tye Munoz MD at 15:26 EDT Tel [phone], Service support , CC: Candi Patel DO Military Pay Clerk: Signed PROGRESS Observed: 03/20/2017 Status: COMPLETED Source: [facility] 8:45 AM [facility] [place] REPOSITORY O ID: [id number] Author: Tania Gibson Service: (none) Author Type: Physician Type: Progress Notes Filed: 04/17/2017 1:46 PM Note Text: Ortho Knee Follow Up Note Narrative Referring Provider: Tania Gibson MD [address] [address] PCP: Candi Patel, IMPRESSION/PLAN: 57 year old [...] Drug orange Nausea/Vom/Diar Unknown [facility] Allergy/4160 juice/[id number] [facility] [address](SNOMED 13(RXNORM) Repository CT) 10/15/2016 DRUG ORANGE JUICE GI UPSET INGREDI/[address] [place] [address](SNOMED Repository CT) ENCOUNTERS ENCOUNTERS ADMIT/DISCHARGE ACCOUNT ADMITTING ENCOUNTER LOCATION SOURCE NUMBER CLASS 02/09/2018 [id number] Ambulatory BMSBuilding:Jana Romero MS.[facility] Repository 02/09/2018 [id number] [facility] ing:[facility]D Repository 02/06/2018 [id number] [facility] ing:CT Repository 02/05/2018 [id number] [facility] ing:LAB Repository 02/02/2018 [id number] [facility] ing:NM Repository 01/13/2018 [id number] Ambulatory BMSBuilding:B Pillow MS.CF.[facility] Repository 12/30/2017/12/31/19 [id number] Ambulatory [address] [place] Repository 12/30/2017/01/02/20 [id number] Ambulatory [address] Repository 12/22/2017 [id number] Ambulatory BMSBuilding:B Pillow MS.CF.[facility] Repository 12/17/2017 [id number] Ambulatory BMSBuilding:B Heather MS.[facility] Repository 12/11/2017 [id number] Ambulatory BMSBuilding:[facility] Repository 12/10/2017 [id number] Ambulatory BMSBuilding:B Heather MS.CF.[facility] Repository 12/03/2017 [id number] Ambulatory BMSBuilding:B [place] MS.[facility] Repository 11/26/2017 [id number] Ambulatory BMSBuilding:B [facility] MS.[facility] Repository 11/19/2017 [id number] Ambulatory BMSBuilding:[facility] [facility] Repository 11/18/2017 [id number] Ambulatory BMSBuilding:[facility] Repository 11/14/2017 [id number] Ambulatory BMSBuilding:[facility] Repository 11/06/2017 [id number] Ambulatory BMSBuilding:[facility] Repository 11/05/2017 [id number] Ambulatory BMSBuilding:B Heather MS.CF.[facility] Repository 10/16/2017 [id number] Ambulatory BMSBuilding:B [facility] MS.[facility] Repository 10/16/2017 [id number] Ambulatory BMSBuilding:B Heather MS.[facility] Repository 10/06/2017/10/07/19 [id number] Ambulatory BMSBuilding:B Pillow 18 MS.[facility] Repository 09/18/2017/09/19/19 [id number] Ambulatory [address] [facility] ing:SDC Repository 09/18/2017 [id number] Ambulatory BMSBuilding:B Heather MS.CF.[facility] Repository 09/11/2017/09/12/19 [id number] Ambulatory BMSBuilding:B Heather 18 MS.[facility] Repository 09/03/2017 [id number] Ambulatory [facility] ing:[facility] Repository 09/03/2017/09/04/19 [id number] Ambulatory BMSBuilding:B [facility] 18 [facility] Repository 08/27/2017 [id number] [facility] ing:FARIA Repository 08/21/2017 [id number] [facility] ing:OPBD Repository 03/20/2017/04/17/19 [id number] Ambulatory [address] Repository PAYERS PAYERS ENCOUNTER GUARANTOR PAYER SUBSCRIBER SOURCE 02/09/2018 CELINA Bryant Primary BRANDYN R [place] [id number] E Insurance:ANTHEMPolic [facility] Number: [id number] [id number] Repository [address]Zms: 330) Date:9402-94-16SB [phone] () [address]408[address]KJCBMTN, [place] [address]DS: 02/09/2018 Secondary NOT GIVENUNK Heather Insurance:SELF PAY [facility] Number: Effective Repository Date:2018-02-09 02/09/2018 CELINA L Primary BRANDYN R Heather [id number] E Insurance:ANTHEMPolic MATHEWSDOB: [facility] y Number: [id number], [place] [id number] Repository [address]Tjl: (330) Date:1633-75-69KK [phone] () [address]29[address]DFOODVM, [place] [address]WV: 02/09/2018 Secondary NOT GIVENUNK Heather Insurance:SELF PAY [facility] Number: Effective Repository Date:2017-09-23 02/06/2018 CELINA L Primary BRANDYN R Heather [id number] E Insurance:ANTHEMPolic MATHEWSDOB: [facility] y Number: [id number], [place] [id number] Repository [address]Jkg: (330) Date:9630-50-78HS [phone] () 590296FVSJGGS, [place] [address]MB: 02/06/2018 Secondary NOT GIVENUNK Pill[place] Insurance:SELF PAY [facility] Number: Effective Repository Date:2017-12-22 02/05/2018 CELINA L Primary BRANDYN R [place] [id number] E Insurance:ANTHEMPolic MATHEWSDOB: [facility] y Number: [id number], [place] [id number] Repository [address]Ebg: (330) Date:9739-03-38BA [phone] () 455120MJVFCOV, [place] [address]AU: 02/05/2018 Secondary NOT GIVENUNK [place] Insurance:SELF PAY [facility] Number: Effective Repository Date:2018-02-05 02/02/2018 CELINA L Primary BRANDYN R [place] [id number] E Insurance:ANTHEMPolic MATHEWSDOB: [facility] y Number: [id number], [place] [id number] Repository [address]Gfw: (330) Date:0181-89-84KA [phone] () 506[address]KNPWPIX, [place] [address]GS: 02/02/2018 Secondary NOT GIVENUNK [place] Insurance:SELF PAY [facility] Number: Effective Repository Date:2017-12-22 01/13/2018 CELINA L Primary [place] Heather [id number] E Insurance:ANTHEMPolic MathewsDOB: Community [facility] y Number: [id number] Valley Regional Medical [id number] Repository [address]Ise: (330) Date:1872-92-97NF [phone] () [address] [place] [address] [place] [address]TT: 01/13/2018 Secondary NOT GIVENUNK Pill[place] Insurance:SELF PAY [facility] Number: Effective Repository Date:2018-01-13 12/22/2017 CELINA L Primary Brandyn R [facility] [id number] E Insurance:ANTHEMPolic MathewsDOB: [facility] y Number: [id number] Valley Regional Medical [id number] Repository [address]Aow: (330) Date:2548-36-34LZ [phone] () 392132EYDPSAY, [place] [address]QS: 12/22/2017 Secondary NOT GIVENUNK Pill[place] Insurance:SELF PAY [facility] Number: Effective Repository Date:2017-12-22 12/17/2017 CELINA L Primary [place] Heather [id number] E Insurance:ANTHEMPolic MathewsDOB: Community [facility] y Number: [id number], [place] [id number] Repository [address]Xff: (330) Date:5903-31-34RJ [phone] () 924917VMFCBAJ, [place] [address]PS: 12/17/2017 Secondary NOT GIVENUNK Heather Insurance:SELF PAY [facility] Number: Effective Repository Date:2017-12-17 12/11/2017 CELINA L Primary [place] [id number] E Insurance:ANTHEMPolic MathewsDOB: Community [facility] y Number: [id number], [place] [id number] Repository [address]Tgr: (330) Date:7305-12-75AM [phone] () SAHRA ALMEIDA [address]YL: 12/11/2017 Secondary NOT GIVENUNK Heather Insurance:SELF PAY [facility] Number: Effective Repository Date:2017-12-11 12/10/2017 CELINA L Primary Brandyn R [facility] [id number] E Insurance:ANTHEMPolic MathewsDOB: [facility] BLAZE y Number: [id number] Valley Regional Medical [id number] Repository [address]Wrj: (330) Date:9218-43-61OK [phone] () SAHRA ALMEIDA [address]MI: 12/10/2017 Secondary NOT GIVENUNK Heather Insurance:SELF PAY [facility] Number: Effective Repository Date:2017-12-10 12/03/2017 CELINA L Primary [place] Heather [id number] E Insurance:ANTHEMPolic MathewsDOB: [facility] BLAZE y Number: [id number] Valley Regional Medical [id number] Repository [address]Uwp: (330) Date:0370-74-14HN [phone] () 825015VRYMHWOSAHRA ARAMBULA [address]US: 12/03/2017 Secondary NOT GIVENUNK [facility] Insurance:SELF PAY [facility] Number: Effective Repository Date:2017-12-03 11/26/2017 CELINA L Primary Brandyn R [facility] [id number] E Insurance:ANTHEMPolic MathewsDOB: [facility] BLAZE y Number: [id number] Valley Regional Medical [id number] Repository [address]Dob: (330) Date:1475-45-88ND [phone] () 630946MRWDVUPSAHRA ARAMBULA [address]CP: 11/26/2017 Secondary NOT GIVENUNK [facility] Insurance:SELF PAY [facility] Number: Effective Repository Date:2017-11-26 11/19/2017 CELINA L Primary Brandyn R [facility] [id number] E Insurance:ANTHEMPolic MathewsDOB: [facility] y Number: [id number], [place] [id number] Repository [address]Qff: (330) Date:3977-52-13UZ [phone] () [address] [place] [address]NU: 11/19/2017 Secondary NOT GIVENUNK Heather Insurance:SELF PAY [facility] Number: Effective Repository Date:2017-11-19 11/18/2017 CELINA L Primary [place] [facility] [id number] E Insurance:ANTHEMPolic MathewsDOB: [facility] y Number: [id number], [place] [id number] Repository [address]Cqw: (330) Date:2788-69-03FN [phone] () [address] [place] [address]BR: 11/18/2017 Secondary NOT GIVENUNK Heather Insurance:SELF PAY [facility] Number: Effective Repository Date:2017-11-18 11/14/2017 CELINA Bryant Primary [place] [facility] [id number] E Insurance:ANTHEMPolic MathewsDOB: [facility] y Number: [id number], [place] [id number] Repository [address]Buj: (330) Date:3203-57-85DN [phone] () [id number] [place] [address]HW: 11/14/2017 Secondary NOT GIVENUNK Heather Insurance:SELF PAY [facility] Number: Effective Repository Date:2017-11-14 11/06/2017 CELINA Bryant Primary [place] [facility] [id number] E Insurance:ANTHEMPolic MathewsDOB: [facility] y Number: [id number], [place] [id number] Repository [address]Irs: (330) Date:5996-47-34PZ [phone] () 617[address]BHNSLTX, [place] [address]JC: 11/06/2017 Secondary NOT GIVENUNK [facility] Insurance:SELF PAY [facility] Number: Effective Repository Date:2017-11-06 11/05/2017 CELINA L Primary [place] R Heather [id number] E Insurance:ANTHEMPolic MathewsDOB: Community [place] y Number: [id number], [place] [id number] Repository [address]1031Prd: (330) Date:7656-38-75WH [phone] () SAHRA ALMEIDA [address]IQ: 11/05/2017 Secondary NOT GIVENUNK Heather Insurance:SELF PAY [facility] Number: Effective Repository Date:2017-11-05 10/16/2017 CELINA L Primary Brandyn R Pillow [id number] E Insurance:ANTHEMPolic MathewsDOB: Community [facility] y Number: [id number], [place] [id number] Repository 364[address]Qkb: (330) Date:1812-55-89DQ [phone] () SAHRA ALMEIDA [address]WC: 10/16/2017 Secondary NOT GIVENUNK Heather Insurance:SELF PAY [facility] Number: Effective Repository Date:2017-10-16 10/16/2017 CELINA L Primary Brandyn R Pillow [id number] E Insurance:ANTHEMPolic MathewsDOB: Community [place] y Number: [id number], [place] [id number] Repository 740[address]Ghz: (330) Date:1512-44-16XN [phone] () [id number] ARAMBULA 83805JP: 10/16/2017 Secondary NOT GIVENUNK Heather Insurance:SELF PAY [facility] Number: Effective Repository Date:2017-10-16 10/06/2017 CELINA L Primary [place] Heather [id number] E Insurance:ANTHEMPolic MathewsDOB: Community [place] y Number: [id number] Valley Regional Medical [id number] Repository 873[address]Kdx: (330) Date:3376-63-74KA [phone] () SAHRA ALMEIDA 33909CD: 10/06/2017 Secondary NOT GIVENUNK Heather Insurance:SELF PAY [facility] Number: Effective Repository Date:2017-09-19 09/18/2017 CELINA Bryant Primary Brandyn R Pillow [id number] E Insurance:ANTHEMPolic MathewsDOB: [facility] y Number: [id number] Valley Regional Medical [id number] Repository [address]Imd: (330) Date:5287-30-81GC [phone] () SAHRA ALMEIDA 65014YC: 09/18/2017 Secondary NOT GIVENUNK Heather Insurance:SELF PAY [facility] Number: Effective Repository Date:2017-09-15 09/18/2017 CELINA Bryant Primary [place] Pillow [id number] E Insurance:ANTHEMPolic MathewsDOB: [facility] y Number: [id number], [place] [id number] Repository 294[address]Zhn: (330) Date:6193-86-18AW [phone] () [id number] ARAMBULA 31541IY: 09/18/2017 Secondary NOT GIVENUNK Pillow Insurance:SELF PAY [facility] Number: Effective Repository Date:2017-09-18 09/11/2017 [place]agu[place] R Primary Brandyn R Pillow [id number] E Insurance:ANTHEMPolic MathewsDOB: Community [place] y Number: [id number] [place] [id number] Repository [address]Uav: (330) Date:7081-16-23DN [phone] () SAHRA ALMEIDA [address]OE: 09/11/2017 Secondary NOT GIVENUNK Heather Insurance:SELF PAY [facility] Number: Effective Repository Date:2017-09-05 09/03/2017 Brandyn R Primary Brandyn R Heather [id number] E Insurance:ANTHEMPolic MathewsDOB: Community [place] y Number: [id number]. Mary's Medical [id number] Repository 62[address]Osy: (330) Date:5069-18-06IV [phone] () [id number] [place] [address]57VQ: 09/03/2017 Secondary NOT GIVENUNK Heather Insurance:SELF PAY [facility] Number: Effective Repository Date:2017-09-03 09/03/2017 Brandyn R Primary [place] R Heather [id number] E Insurance:ANTHEMPolic MathewsDOB: [facility] y Number: [id number]. Mary's Medical [id number] Repository 92091Zkt: (330) Date:3919-40-71WO [phone] () [id number] [place] [address] 24626BJ: 09/03/2017 Secondary NOT GIVENUNK Pillow Insurance:SELF PAY [facility] Number: Effective Repository Date:2017-09-03 08/27/2017 Brandyn R Primary Brandyn R Pillow [id number] E Insurance:ANTHEMPolic MathewsDOB: [facility] y Number: [id number] [place], [place] [id number] Repository 45[address]Kms: (330) Date:6754-95-95PV [phone] () [id number] [place] [address]DQ: 08/27/2017 Secondary NOT GIVENUNK Heather Insurance:SELF PAY [facility] Number: Effective Repository Date:2017-08-25 08/21/2017 Naguabo R Primary [place] R Heather [id number] E Insurance:ANTHEMPolic MathewsDOB: [facility] y Number: [id number]. Mary's Medical [id number] Repository 345[address]Uzj: (330) Date:4856-50-18SR [phone] () [id number], [place] [address]VF: 08/21/2017 Secondary NOT GIVENUNK Pillow Insurance:SELF PAY [facility] Number: Effective Repository Date:2017-07-25
== END ==
PROVIDERS: Family Provider Internal Medicine; PCP Internal Medicine; Referring Provider Internal Medicine Medical Oncology; Visit Provider Internal Medicine Medical Oncology
DX: C50.212 Malignant neoplasm of upper-inner quadrant of left female breast (principal)
CPT/HCPCS: 71260; 74177; Q9967; A4216

== ENCOUNTER → 2018-08-24 07:48 | Outpatient (CLI) | payer BC, SELFPAY ==
[2017-10-16 10:28] VITALS: BMI 26.2
[2018-02-09 14:22] VITALS: BMI 26.7
[2018-06-29 17:30] VITALS: BMI 27.3
--- NOTE | 2018-08-24 07:53 | BI_ITS ---
MAMMOGRAPHY - BILATERAL SCREENING REASON FOR EXAM: Female, 58 years old. Routine annual screening examination. PERTINENT HISTORY: Personal history of breast cancer. Prior left lumpectomy and remote bilateral excisional breast biopsies. TECHNIQUE: Digital bilateral breast vasile (3D mammographic acquisition) in the CC and MLO projections. 2-D mediolateral oblique (MLO) and craniocaudad (CC) views of both breasts were obtained. CAD: Full Field Digital Mammography with Computer Added Detection was performed. COMPARISON: Comparison is made with prior study dated August 21, 2017 and February 19, 2016. FINDINGS: Breast Composition: The breasts are heterogeneously dense, which may obscure small masses. Since prior study, the patient underwent resection of a nodular density in the upper deep midportion of the left breast. Resulting postoperative scarring and skin thickening. No other significant abnormalities are identified. BI/SCREEN MAMM (CAD) W/VASILE BILAT IMPRESSION: Postoperative changes in the left breast with resection of a nodular density in the deep upper midportion of the left breast. No new mass or clustered microcalcification is seen. ASSESSMENT CATEGORY: BIRADS Category 2: Benign. A letter regarding these results will be sent to the patient by the facility within 30 days. Approximately 10% of breast cancers are not detected by mammography. A normal mammogram should not delay biopsy of a clinically suspicious abnormality. [id number] Electronically Signed: Tye Munoz, at 9:20 EDT , Service support ,
== END ==
PROVIDERS: Family Provider Internal Medicine; PCP Internal Medicine; Referring Provider Student in an Organized Health Care Education/Training Program; Visit Provider Student in an Organized Health Care Education/Training Program
DX: Z12.31 Encounter for screening mammogram for malignant neoplasm of breast (principal); C50.212 Malignant neoplasm of upper-inner quadrant of left female breast
CPT/HCPCS: 77063; 77067

== ENCOUNTER → 2019-01-06 09:19 | Outpatient (CLI) | payer BC, SELFPAY ==
[2017-10-16 10:28] VITALS: BMI 26.2
[2018-12-14 13:11] VITALS: BMI 27.6
--- NOTE | 2019-01-06 09:21 | US_ITS ---
STUDY: ULTRASOUND BREAST - RIGHT REASON FOR EXAM: Female, 58 years old. Right axillary lump. TECHNIQUE: Axial and longitudinal images of the RIGHT breast were performed with a high resolution ultrasound transducer. COMPARISON: None. FINDINGS: RIGHT Breast: Multiple lymph nodes are seen in the right axillary region. The largest measures 8 mm x 8 mm x 4 mm. US/Breast Limited Unilateral IMPRESSION: Multiple small benign-appearing right axillary lymph nodes. ASSESSMENT CATEGORY: BIRADS Category 2: Benign. A letter regarding these results will be sent to the patient by the facility within 30 days. Electronically Signed: Tye Munoz, at 13:02 EDT , Service support ,
== END ==
PROVIDERS: Family Provider Internal Medicine; PCP Internal Medicine; Referring Provider Student in an Organized Health Care Education/Training Program; Visit Provider Student in an Organized Health Care Education/Training Program
DX: N63.10 Unspecified lump in the right breast, unspecified quadrant (principal)
CPT/HCPCS: 76642

== ENCOUNTER → 2019-08-26 10:06 | Outpatient (CLI) | payer BC, SELFPAY ==
[2017-10-16 10:28] VITALS: BMI 26.2
[2018-12-14 13:11] VITALS: BMI 27.6
[2019-08-05 13:57] VITALS: BMI 27.3
--- NOTE | 2019-08-26 10:25 | BI_ITS ---
MAMMOGRAPHY - BILATERAL SCREENING REASON FOR EXAM: Female, 59 years old. Routine annual screening examination. PERTINENT HISTORY: Personal history of breast cancer. Prior left lumpectomy. Prior right stereotactic breast biopsy and right excisional breast biopsy. Remote left excisional breast biopsy as well. TECHNIQUE: Digital bilateral breast vasile (3D mammographic acquisition) in the CC and MLO projections. 2-D mediolateral oblique (MLO) and craniocaudad (CC) views of both breasts were obtained. CAD: Full Field Digital Mammography with Computer Added Detection was performed. COMPARISON: Comparison is made with prior examination dated August 24, 2018 and September 18, 2017. FINDINGS: Breast Composition: The breasts are heterogeneously dense, which may obscure small masses. There are no dominant masses or suspicious calcifications. Stable deformity of the right breast with evidence of architectural distortion in the upper deep lateral portion of the breast secondary to postoperative scarring. There is evidence of skin thickening. Surgical clips are seen in the axillary region. No other significant abnormalities are identified. There has been no significant change since the prior study. BI/SCREEN MAMM (CAD) W/VASILE BILAT IMPRESSION: Stable bilateral screening mammogram. Yearly follow-up mammogram recommended. (A) ASSESSMENT CATEGORY: BIRADS Category 2: Benign. A letter regarding these results will be sent to the patient by the facility within 30 days. Approximately 10% of breast cancers are not detected by mammography. A normal mammogram should not delay biopsy of a clinically suspicious abnormality. [id number] Electronically Signed: Tye Munoz, at 11:20 EDT , Service support ,
== END ==
PROVIDERS: PCP Internal Medicine; Referring Provider Student in an Organized Health Care Education/Training Program; Visit Provider Student in an Organized Health Care Education/Training Program
DX: Z12.31 Encounter for screening mammogram for malignant neoplasm of breast (principal); Z85.3 Personal history of malignant neoplasm of breast
CPT/HCPCS: 77063; 77067

== ENCOUNTER 2020-05-19 13:33 | Outpatient (RCR) | payer OTHER, SELFPAY ==
[2017-10-16 10:28] VITALS: BMI 26.2
[2019-08-05 13:57] VITALS: BMI 27.3
[2020-05-19] MEDS: COVID-19 VACC, MRNA(PFIZER)/PF 30 MCG/0.3 ML SYRINGE IM (13:40)
[2020-06-09] MEDS: COVID-19 VACC, MRNA(PFIZER)/PF 30 MCG/0.3 ML SYRINGE IM (13:30)
== END 2020-08-15 23:59 ==
LOC: IMMUN 13:33
PROVIDERS: PCP Internal Medicine; Visit Provider Family Medicine
DX: Z23 Encounter for immunization (principal)
CPT/HCPCS: 0001A; 0002A; 91300

== ENCOUNTER → 2020-08-31 08:17 | Outpatient (CLI) | payer OTHER, SELFPAY ==
[2017-10-16 10:28] VITALS: BMI 26.2
[2019-08-05 13:57] VITALS: BMI 27.3
[2020-08-17 15:00] VITALS: BMI 27.6
--- NOTE | 2020-08-31 08:19 | BI_ITS ---
MAMMOGRAPHY - BILATERAL SCREENING 3-D TOMOSYNTHESIS REASON FOR EXAM: Female, 60 years old. h/o breast cancer, annual screening PERTINENT HISTORY: No significant family history. TECHNIQUE: 2-D mammograms and 3-D Tomosynthesis of the breast (s) were performed. CAD was performed. COMPARISON: 08/26/2019 FINDINGS: The breast composition is heterogeneous fibroglandular tissue with post lumpectomy changes involving the left breast where there is focal skin thickening and retraction. Otherwise no recurrent or persistent mass on the left side. Surgical clips are seen in the left jugular. The right breast showed no evidence of a spiculated lesion, cluster of microcalcifications, skin thickening or nipple retraction. BilateralScattered benign calcifications are seen. No architectural distortion is identified. There is no skin thickening or retraction. There has been no significant change since the prior study of 08/26/2019. BI/SCRN MAMM (CAD)W/VASILE BILAT IMPRESSION: No mammographic signs of malignancy. Routine yearly mammograms recommended. Post lumpectomy and treatment changes left breast. BIRADS -2. FOLLOW UP RECOMMENDATION: Yearly follow up mammogram recommended. (A) Approximately 10% of breast cancers are not detected by mammography. A normal mammogram should not delay biopsy of a clinically suspicious abnormality. Electronically Signed: Diamond Christiansen, at 8:40 EDT Tel , Service support ,
== END ==
PROVIDERS: PCP Internal Medicine; Referring Provider Student in an Organized Health Care Education/Training Program; Visit Provider Student in an Organized Health Care Education/Training Program
DX: Z12.31 Encounter for screening mammogram for malignant neoplasm of breast (principal); Z85.3 Personal history of malignant neoplasm of breast
CPT/HCPCS: 77063; 77067

== ENCOUNTER → 2021-09-04 | Outpatient (CLI) | payer BC, SELFPAY ==
[2017-10-16 10:28] VITALS: BMI 26.2
--- NOTE | 2021-09-04 09:21 | BI_ITS ---
MAMMOGRAPHY - BILATERAL SCREENING REASON FOR EXAM: Female, 61 years old. Routine annual screening examination. PERTINENT HISTORY: Personal history of breast cancer. Prior left lumpectomy. Prior right stereotactic and right excisional breast biopsies. TECHNIQUE: Digital bilateral breast vasile (3D mammographic acquisition) in the CC and MLO projections. 2-D mediolateral oblique (MLO) and craniocaudad (CC) views of both breasts were obtained. CAD: Full Field Digital Mammography with Computer Added Detection was performed. COMPARISON: Comparison is made with prior study dated 08/31/2020 and 08/26/2019. FINDINGS: Breast Composition: The breasts are heterogeneously dense, which may obscure small masses. There are no dominant masses or suspicious calcifications. The patient is status post lumpectomy in the central aspect of the left breast with the resultant breast deformity and overlying skin thickening. Stable calcified nodular density in the inferior central slightly medial aspect of the right breast. No other significant abnormalities are identified. There has been no significant change since the prior study. BI/SCRN MAMM (CAD)W/VASILE BILAT IMPRESSION: Stable bilateral screening mammogram. Yearly follow-up mammogram recommended. (A) ASSESSMENT CATEGORY: BIRADS Category 2: Benign. A letter regarding these results will be sent to the patient by the facility within 30 days. Approximately 10% of breast cancers are not detected by mammography. A normal mammogram should not delay biopsy of a clinically suspicious abnormality. [id number] Electronically Signed: Tye Munoz MD at 10:30 EDT ,
--- NOTE | 2021-09-04 09:25 | BD_ITS ---
STUDY: DUAL ENERGY X-RAY ABSORPTIOMETRY / DXA REASON FOR EXAM: Female, 61 years old. SCREENING -- OSTEO SCREENING TECHNIQUE: Bone Mineral Density (BMD) measurements of lumbar spine and bilateral hips were obtained. COMPARISON: Comparison is made with prior study dated 08/21/2017. FINDINGS: Lumbar Spine (L1-L4): g/cm2 (0.904) / T-score (-1.3) / Z-score (0.4) Findings are suggestive of osteopenia with a low fracture risk. Left Femur Total: g/cm2 (0.763) / T-score (-1.5) / Z-score (-0.3) Left Femoral Neck: g/cm2 (0.599) / T-score (-2.3) / Z-score (-0.8) Right Femur Total: g/cm2 (0.768) / T-score (-1.4) / Z-score (-0.3) Right Femoral Neck: g/cm2 (0.625) / T-score (-2.0) / Z-score (-0.6) The T-Scores on the most recent prior examination were: Lumbar Spine (L1-L4): There has been improvement of bone density since the previous examination. Left Femur Total: which represents an improvement of 13.6%. Right Femur Total: which represents an improvement of 10.6%. BD/Dexa Bone Density Study IMPRESSION: The patient is considered osteopenic as outlined below according to World Mario Organization (WHO) criteria with a high fracture risk. There has been improvement of bone density since the previous examination. Reference Information: The T-score is the number of standard deviations above or below the standard which is normal for young adults at their peak bone mineral density. The World Health Organization (WHO) interprets the T-scores as follows: Above -1 Normal bone density Between -1 and -2.5 Osteopenia Equal to / or below -2.5 Osteoporosis As a practical clinical guideline, osteopenia may be graded as follows: Mild -1 through -1.5 Moderate -1.6 through -2.0 Severe -2.1 through -2.4 The Z-score is the number of standard deviations above or below age-matched controls. A Z-score of less than -1.5 would be considered abnormal. References: 1. NIH Osteoporosis and Related Bone Diseases www osteo.org 2. International Society for Clinical Densitometry www iscd.org 3. National Osteoporosis Foundation www nof.org Electronically Signed: Tye Munoz MD at 9:59 EDT ,
== END | disposition home or self-care (01) ==
LOC: OPBD 09:16
PROVIDERS: PCP Internal Medicine; Visit Provider Internal Medicine Medical Oncology
DX: Z13.820 Encounter for screening for osteoporosis (principal); Z12.31 Encounter for screening mammogram for malignant neoplasm of breast; Z85.3 Personal history of malignant neoplasm of breast
CPT/HCPCS: 77063; 77067; 77080

== ENCOUNTER → 2022-09-06 | Outpatient (CLI) | payer BC, SELFPAY ==
[2017-10-16 10:28] VITALS: BMI 26.2
--- NOTE | 2022-09-06 09:02 | BI_ITS ---
MAMMOGRAPHY - BILATERAL SCREENING REASON FOR EXAM: Female, 62 years old. Routine annual screening examination. PERTINENT HISTORY: Personal history of breast cancer. Prior left lumpectomy. Prior right stereotactic biopsy and excisional breast biopsies. TECHNIQUE: Digital bilateral breast vasile (3D mammographic acquisition) in the CC and MLO projections. 2-D mediolateral oblique (MLO) and craniocaudad (CC) views of both breasts were obtained. CAD: Full Field Digital Mammography with Computer Added Detection was performed. COMPARISON: Comparison is made with prior study September 04, 2021 and August 31, 2020 FINDINGS: Breast Composition: The breasts are heterogeneously dense, which may obscure small masses. There are no dominant masses or suspicious calcifications. Once again, the patient is status post lumpectomy in the central aspect of the left breast with resultant postoperative breast deformity and overlying skin thickening stable densely calcified nodule in the inferior central slightly medial aspect of the right breast. No other significant abnormalities are identified. There has been no significant change since the prior study. BI/SCRN MAMM (CAD)W/VASILE BILAT IMPRESSION: Stable bilateral screening mammogram. Yearly follow-up mammogram recommended. (A) ASSESSMENT CATEGORY: BIRADS Category 2: Benign. A letter regarding these results will be sent to the patient by the facility within 30 days. Approximately 10% of breast cancers are not detected by mammography. A normal mammogram should not delay biopsy of a clinically suspicious abnormality. [id number] Electronically Signed: Tye Munoz MD at 11:09 EDT ,
== END | disposition home or self-care (01) ==
LOC: OPBI 09:01
PROVIDERS: PCP Internal Medicine; Referring Provider Student in an Organized Health Care Education/Training Program; Visit Provider Student in an Organized Health Care Education/Training Program
DX: Z12.31 Encounter for screening mammogram for malignant neoplasm of breast (principal); Z85.3 Personal history of malignant neoplasm of breast
CPT/HCPCS: 77063; 77067

== ENCOUNTER → 2023-09-17 | Outpatient (CLI) | payer BC, SELFPAY ==
[2017-10-16 10:28] VITALS: BMI 26.2
--- NOTE | 2023-09-17 08:36 | BI_ITS ---
MAMMOGRAPHY - BILATERAL SCREENING REASON FOR EXAM: Female, 63 years old. Routine annual screening examination. PERTINENT HISTORY: Personal history of breast cancer. Prior left lumpectomy. Prior right stereotactic breast biopsy. Prior bilateral excisional breast biopsies. TECHNIQUE: Digital bilateral breast vasile (3D mammographic acquisition) in the CC and MLO projections. 2-D mediolateral oblique (MLO) and craniocaudad (CC) views of both breasts were obtained. CAD: Full Field Digital Mammography with Computer Added Detection was performed. COMPARISON: Comparison is made with prior study dated September 06, 2022 and September 04, 2021. FINDINGS: Breast Composition: The breasts are heterogeneously dense, which may obscure small masses. There are no dominant masses or suspicious calcifications. Once again, the patient is status post lumpectomy in the central aspect of the left breast with resultant postoperative breast deformity and scarring. Overlying skin thickening. Stable densely calcified nodule in the inferior slightly medial aspect of the right breast. No other significant abnormalities are identified. There has been no significant change since the prior study. BI/SCRN MAMM (CAD)W/VASILE BILAT IMPRESSION: Stable bilateral screening mammogram. Yearly follow-up mammogram recommended. (A) ASSESSMENT CATEGORY: BIRADS Category 2: Benign. A letter regarding these results will be sent to the patient by the facility within 30 days. Approximately 10% of breast cancers are not detected by mammography. A normal mammogram should not delay biopsy of a clinically suspicious abnormality. [id number] Electronically Signed: Tye Munoz MD at 10:21 EDT ,
== END | disposition home or self-care (01) ==
LOC: OPBI 08:36
PROVIDERS: PCP Internal Medicine; Referring Provider Student in an Organized Health Care Education/Training Program; Visit Provider Student in an Organized Health Care Education/Training Program
DX: Z12.31 Encounter for screening mammogram for malignant neoplasm of breast (principal); Z85.3 Personal history of malignant neoplasm of breast
CPT/HCPCS: 77063; 77067

== ENCOUNTER → 2024-09-17 | Outpatient (CLI) | payer BC, SELFPAY ==
[2017-10-16 10:28] VITALS: BMI 26.2
--- NOTE | 2024-09-17 08:34 | BI_ITS ---
EXAM: SCRN MAMM (CAD)W/VASILE BILAT DATE: 09/17/2024 CLINICAL HISTORY: F, Age 64 y/o , SCREENING TECHNIQUE: SCRN MAMM (CAD)W/VASILE BILAT COMPARISON: Prior exam(s) dated 09/17/2023, 09/06/2022, 08/27/2021, 08/31/2020. FINDINGS: TISSUE DENSITY: The breasts are heterogeneously dense, which may obscure small masses. The mammogram demonstrates that the patient has dense breasts. Supplemental screening with whole breast ultrasound or MRI may be considered for further evaluation. Bilateral Breast Mammographic Findings: There are stable postsurgical changes in the central upper left breast at posterior depth, as well as in the left axilla. No significant masses, calcifications or other abnormalities are identified. BI/SCRN MAMM (CAD)W/VASILE BILAT IMPRESSION: There is no mammographic evidence of malignancy. OVERALL FINAL ASSESSMENT BI-RADS 2: BENIGN RECOMMEND ANNUAL MAMMOGRAPHIC SCREENING. RECOMMENDATION: Routine annual follow-up in 1 Year A letter with findings and recommendations will be mailed to the patient. Reading Location: [id number]
== END | disposition home or self-care (01) ==
LOC: OPBI 08:31
PROVIDERS: PCP Internal Medicine; Referring Provider Student in an Organized Health Care Education/Training Program; Visit Provider Student in an Organized Health Care Education/Training Program
DX: Z12.31 Encounter for screening mammogram for malignant neoplasm of breast (principal)
CPT/HCPCS: 77063; 77067